=== PATIENT | female | born 1960 | race African-American/Black ===

== ENCOUNTER 2017-03-26 09:08 | Observation (INO) | payer OTHER ==
[2017-03-26 10:09] LABS: #Lymphocytes 0.9 thou/uL (1.20-3.40); #Monocytes 0.4 thou/uL (0.11-0.59); #Neutrophils 1.4 thou/uL (1.40-6.50); %Basophils 0.7 % (0.0-1.0); %Eosinophils 0.1 % (0.0-10.0); %Lymphocytes 34.2 % (21.0-51.0); %Monocytes 13.3 % (0.0-10.0); Hematocrit 19.8 % (36.0-47.0); Mean Platelet Volume 7.5 fL (7.4-10.4); Red Blood Cell (RBC) Count 2.34 mill/uL (4.20-5.40); White Blood Cell (WBC) Count 2.7 thou/uL (4.8-10.8)
--- NOTE | 2017-03-26 10:10 | RAD ---
PORTABLE CHEST: History: Shortness of breath. Comparison: 03-08-14 FINDINGS: The heart size is within normal limits. A left sided PICC line remains in place. There is increasing density in the left base suggesting some increasing effusion with atelectasis or infiltrate. Some a telectatic changes or minimal infiltrate in the right base, similar to the prior exam. IMPRESSION: Slight increased density in the left base as compared to the prior exam. This could indicate some in creasing effusion, atelectasis, and/or infiltrate. POS: [facility]
[2017-03-26 10:16] LABS: PTT 67.4 SEC (22.9-36.1); Prothrombin Time 15.3 SEC (12.0-14.7)
[2017-03-26] MEDS ORDERED: Morphine 10 MG/ML VIAL ONE (10:17)
[2017-03-26 10:26] LABS: Lactic Acid - Sepsis 0.9 mmol/L (0.5-2.2)
[2017-03-26 10:34] LABS: ALT (SGPT) Less than 7 U/L (8-55); AST (SGOT) 18 U/L (5-34); Alkaline Phosphatase 63 U/L (40-150); Anion Gap 10 mmol/L (10-20); BUN (Urea Nitrogen) 9 mg/dL (9.8-20.1); Bilirubin, Total 0.3 mg/dL (0.2-1.2); CK (CPK) 70 U/L (29-168); Calc. Creatinine Clearance 0 mL/min (70-130); Calcium 7.8 mg/dL (7.8-10.44); Carbon Dioxide 21 mmol/L (22-29); Chloride 105 mmol/L (98-107); Estimated GFR-MDRD Greater than 90; Globulin 3.3 g/dL (2.4-3.5); Lipase 89 U/L (8-78); Protein, Total 5.5 g/dL (6.0-8.3)
[2017-03-26 10:36] LABS: Troponin I 0.055 ng/mL (< 0.028)
[2017-03-26] MEDS ORDERED: Potassium Chloride 40 MEQ, Admixture Fee 1 EACH in Sodium Chloride 0.9% 250 ML 250 ML IVPB SCH (11:30)
[2017-03-26 11:57] LABS: Bilirubin Negative (Negative); Blood, Urine Large (Negative); Glucose, Urine (Dipstick) Negative (Negative); Ketone, Urine Negative (Negative); Nitrite Negative (Negative); Protein, Urine (Dipstick) 100 mg/dL (Neg-Trace); Urobilinogen 0.2 mg/dL (0.2-1.0)
[2017-03-26 11:59] LABS: Bacteria/HPF None Seen HPF (None Seen); Hyaline Casts/LPF 7-10 HYALINE CAST LPF (0-3 Hyaline); Squamous Epithelial 0-3 HPF (0-3); WBC/HPF 21-50 HPF (0-3)
[2017-03-26 12:12] LABS: Renal Epithelial None Seen HPF (0-3); Transitional Epithelial NONE SEEN HPF (0-3); Yeast-All Forms 3+ HPF (None Seen)
[2017-03-26] MEDS ORDERED: Fluconazole In NaCl,Iso-Osm 200 MG in Premix Bag 1 BAG IVPB SCH ×2 (13:30)
[2017-03-26] MEDS ORDERED: Ondansetron ODT 4 MG TAB PO PRN (18:39)
[2017-03-26] MEDS ORDERED: Bisacodyl 5 MG TAB PO PRN (18:39)
[2017-03-26] MEDS ORDERED: HYDROcodone/Acetaminophen 7.5/325 mg Tablet PO PRN ×2 (18:39)
[2017-03-26] MEDS ORDERED: hydrALAZINE 20 MG/ML VIAL SLOW IVP PRN (18:39)
[2017-03-26] MEDS ORDERED: Ondansetron HCl/PF 4 MG/2 ML Vial IVP PRN (18:39)
[2017-03-26] MEDS ORDERED: Acetaminophen 325 MG TAB PO PRN (18:39)
[2017-03-26] MEDS ORDERED: metroNIDAZOLE 500 MG TAB PO SCH (20:00)
[2017-03-26 20:46] LABS: Anion Gap 13 mmol/L (10-20); BUN (Urea Nitrogen) 8 mg/dL (9.8-20.1); Calc. Creatinine Clearance 0 mL/min (70-130); Calcium 7.4 mg/dL (7.8-10.44); Carbon Dioxide 18 mmol/L (22-29); Chloride 108 mmol/L (98-107); Estimated GFR-MDRD Greater than 90
[2017-03-26] MEDS ORDERED: Famotidine 20 MG TAB PO SCH (21:00)
[2017-03-26] MEDS ORDERED: Docusate 100 MG CAP PO SCH (21:00)
--- NOTE | 2017-03-26 22:28 | HP ---
PRIMARY CARE PHYSICIAN: Melanie Chavez. CHIEF COMPLAINT: Anemia. 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 She is being cared for by a [facility] oint and they recently did some routine labs when they noticed that her hemoglobin had dropped from the 7s down to the 6s, so they send her in for transfusion. In the ER, she was also noted to have a severe fairly low potassium at 1.9 without any significant EKG changes. The patient denies any sym ptoms besides feeling weak on and off and persistent pain from her sacral decubitus ulcer. PAST MEDICAL HISTORY: 1. Lupus. 2. Guillain-[place] syndrome in 2017. 3. Hypertension. 4. Urinary retention. 5. Previous recurrent DVT. 6. Severe deconditioning with bedridden status. 7. Chronic immunosuppression. 8. Stage IV sacral decubitus ulcer. 9. Severe protein-calorie malnutrition. PAST SURGICAL HISTORY: None. SOCIAL HISTORY: No tobacco, alcohol or illicit drug use. She lives with her boyfriend and her son. FAMILY HISTORY: Father with coronary artery disease. ALLERGIES: No known drug allergies. CURRENT MEDICATIONS: Patient does not know her current medications. Per the ER med list, the leland nt has not taken medicines sometime. Her most recent medication list from her hospitalization here 3 weeks ago were Pepcid 20 mg twice a day, Tylenol #3 one tablet every 6 hours as needed for pain, C ellCept 1 gram twice a day, MiraLax 17 grams daily, warfarin 5 mg daily, clonidine 0.2 mg 3 times a day, hydralazine 50 mg 3 times a day. Patient was also started on cefepime 1 gram every 8 hours for 1 month and Flagyl 500 mg 3 times a day for 1 month and she had a PICC line in place. REVIEW OF SYSTEMS: Constitutional: No fevers, no chills. She has persistent cachexia, lack of kimani etite and lack of energy. Eyes: No double vision or blurred vision. ENT: No congestion, drainage or sore throat. Cardiovascular: No chest pain, no palpitations. Pulmonary: No coughing, wheezin g or shortness breath. Gastrointestinal: No abdominal pain, no nausea or vomiting. No changes to her stool output her ostomy and no blood in the stool that she has noticed. Genitourinary: Urinary output through her suprapubic cath has been clear without any changes. Extremities: She has not n oticed any changes to her extremities. She does have the pain from her sacral decubitus ulcer. Ski n: Sacral decubitus ulcer. No other rashes that she has noticed. Neurologic: No changes to her p aralysis. No focal weakness of her face or changes to her voice. PHYSICAL EXAMINATION: VITAL SIGNS: Blood pressure 147/87, pulse 79, respirations 14, temperature 97.6 and O2 sat 99% on r oom air. GENERAL: This is a thin, cachectic-appearing -Citizen Of [place] female who is bedbound and does not m ove her arms or legs. HEENT: Pupils are equal, round and reactive to light. Oropharynx is clear without lesions, erythem a or exudate. There is some dry mucous membranes. NECK: Supple. No lymphadenopathy, no thyroid nodules or enlargement, no JVD. HEART: Regular rate and rhythm. No murmurs, rubs or gallops. LUNGS: Clear to auscultation bilaterally. No wheezes, crackles or rhonchi. ABDOMEN: Soft, nontender to palpation, normoactive bowel sounds. No hepatosplenomegaly or other ma sses. She does have the colostomy in place in the left side of the abdomen and a suprapubic cathete r in place as well without any surrounding erythema or drainage. EXTREMITIES: Have some contractures and flaccidity and cachectic without any specific lesions noted . SKIN: The patient has a sacral decubitus ulcer. No other skin lesions noted. NEUROLOGIC: The patient has weakness in all of her extremities, is able to speak clearly without an y facial droop or slurring of her words. PSYCHIATRIC: Patient is alert and oriented x3. She does have a depressed affect. LABORATORY AND IMAGING DATA: White blood cell count low at 2.7 with a normal differential, hemoglob in low at 6.3, hematocrit 19.8, MCV is normal at 85 and platelet count normal. Coagulation profile is subtherapeutic on her Coumadin with an INR of 1.2. Does not know whether she has been taking her medicine. Complete metabolic panel is notable for sodium of 134, potassium is very low at 1.9. Jess gamboa has already had an IV potassium in the ER, carbon dioxide of 21, BUN of 9, creatinine of 0.49 and her albumin is low at 2.2, total protein is low at 5.5. The remainder is normal. Cardiac marker se t has an indeterminate troponin of 0.055 initially. Brain natriuretic peptide is normal. Urinalysi s shows protein and large blood with 21-50 white blood cells, but no bacteria seen, just yeast. She did get a dose of Diflucan in the emergency room. Chest x-ray: I did review the chest x-ray along with the radiologist's report. There is some increased density in the left base compared to previo us exam, which could be atelectasis, but also could be infiltrate or effusion. No clinical evidence of infection at this time. EKG: Patient has normal sinus rhythm with a prolonged OR interval; thi s is consistent with previous EKGs. ASSESSMENT AND PLAN: 1. Anemia, likely due to chronic disease. No evidence of significant bleeding. We will transfuse blood in the emergency room and then recheck in the morning. 2. Severe hypokalemia. The patient has already got a couple doses of potassium in the ER. We will check potassium later this evening and if still low, can redose and then we will recheck again in t he morning. 3. Hypertension. The patient is currently not significantly hypertensive. We will give p.r.n. hyd ralazine and we will watch her blood pressures as we transfuse her. If she is back up, we can resum e her clonidine and hydralazine. 4. Malnourishment. 5. Poor medication compliance. The patient has not been taking her Coumadin regularly and I am unc ertain what are the medicines she has actually been taking as well. We will need to continue her an tibiotics while she is in the hospital. 6. Sacral decubitus ulcer. Continue antibiotics and Wound Care to evaluate. 7. Gastrointestinal prophylaxis. Put the patient on Pepcid in the hospital. 8. Deep venous thrombosis prophylaxis. We will resume patient's Coumadin and we will give low dose Lovenox. 9. CODE STATUS. I did discuss with the patient. She is a FULL CODE. Should she be incapacitated, she states that her boyfriend, Tavo Abarca, would be her medical decision maker.
[2017-03-26] MEDS: Cefepime 1 GM in Syringe 10 ML SLOW IVP SCH (23:58)
[2017-03-27 05:52] LABS: #Lymphocytes 0.7 thou/uL (1.20-3.40); #Monocytes 0.5 thou/uL (0.11-0.59); #Neutrophils 3.9 thou/uL (1.40-6.50); %Eosinophils 0.2 % (0.0-10.0); %Lymphocytes 14.2 % (21.0-51.0); %Monocytes 9.1 % (0.0-10.0); Hematocrit 31.3 % (36.0-47.0); Mean Platelet Volume 7.3 fL (7.4-10.4); Red Blood Cell (RBC) Count 3.66 mill/uL (4.20-5.40); White Blood Cell (WBC) Count 5.1 thou/uL (4.8-10.8)
[2017-03-27 05:56] LABS: Prothrombin Time 15.1 SEC (12.0-14.7)
[2017-03-27 06:13] LABS: Anion Gap 10 mmol/L (10-20); BUN (Urea Nitrogen) 9 mg/dL (9.8-20.1); Calc. Creatinine Clearance 114 mL/min (70-130); Calcium 7.5 mg/dL (7.8-10.44); Carbon Dioxide 21 mmol/L (22-29); Chloride 107 mmol/L (98-107); Estimated GFR-MDRD Greater than 90
[2017-03-27] MEDS ORDERED: Potassium Chloride 20 MEQ TAB PO SCH (07:45)
[2017-03-27] MEDS ORDERED: Potassium Chloride 40 MEQ in Sodium Chloride 0.9% 250 ML 250 ML IVPB SCH (07:45)
--- NOTE | 2017-03-27 08:02 | PDOC.PN ---
- Subjective Encounter Start Date: 03/27/17 Encounter Start Time: 09:30 Subjective: Patient without complaints. No SOB. No pain. - Objective MAR Reviewed: Yes Vital Signs & Weight: Vital Signs (12 hours) Temp Pulse Resp BP Pulse Ox 03/27/17 04:00 97.3 F L 77 16 161/85 H 100 03/27/17 00:00 96.6 F L 79 18 164/92 H 99 03/26/17 20:35 97.5 F L 69 18 163/90 H 100 Weight Weight 122 lb 4.8 oz I&O: 03/26/17 03/27/17 03/28/17 06:59 06:59 06:59 Intake Total 360 Output Total 250 Balance 110 Result Diagrams: 03/27/17 05:38 03/27/17 11:00 Phys Exam - Physical Examination Constitutional: NAD HEENT: moist MMs Respiratory: no wheezing, no rales, no rhonchi Cardiovascular: RRR Gastrointestinal: soft, positive bowel sounds Musculoskeletal: no edema contractures Psychiatric: normal affect, A&O x 3 Deviation from normal: two sacral decubitus ulcers with clean bases, no evidence infection Dx/Plan (1) Anemia of chronic disease Code(s): D63.8 - ANEMIA IN OTHER CHRONIC DISEASES CLASSIFIED ELSEWHERE Status : Acute Comment: Improved s/p transfusion, no active bleeding (2) Hypokalemia Code(s): E87.6 - HYPOKALEMIA Status: Acute Comment: Improved, repeat potassium dose this AM. Recheck around noon. (3) Sacral decubitus ulcer, stage IV Code(s): L89.154 - PRESSURE ULCER OF SACRAL REGION, STAGE 4 Status: Acute Comment: s/p I & d, now with wound vac (4) GBS (Guillain [place] syndrome) Code(s): G61.0 - GUILLAIN-[place] SYNDROME Status: Chronic Comment: quadriparesis (5) HTN (hypertension) Code(s): I10 - ESSENTIAL (PRIMARY) HYPERTENSION Status: Chronic Qualifiers: Hypertension type: essential hypertension Qualified Code(s): I10 - Essential (primary) hypertension (6) Lupus (systemic lupus erythematosus) Code(s): M32.9 - SYSTEMIC LUPUS ERYTHEMATOSUS, UNSPECIFIED Status: Chronic Qualifiers: Systemic lupus erythematosus type: unspecified (7) Protein-calorie malnutrition, moderate Code(s): E44.0 - MODERATE PROTEIN-CALORIE MALNUTRITION Status: Chronic - Plan cont current plan of care Plan on d/c home once potassium repleted * . - Discharge Day Encounter end time: 09:30
[2017-03-27 08:17] VITALS: BMI 20.9
[2017-03-27] MEDS ORDERED: metroNIDAZOLE 500 MG TAB PO SCH (09:00)
[2017-03-27] MEDS ORDERED: Enoxaparin Sodium 40 MG/0.4 ML SYRINGE SC SCH (09:00)
[2017-03-27 12:56] LABS: Anion Gap 10 mmol/L (10-20); BUN (Urea Nitrogen) 9 mg/dL (9.8-20.1); Calc. Creatinine Clearance 115 mL/min (70-130); Calcium 7.4 mg/dL (7.8-10.44); Carbon Dioxide 21 mmol/L (22-29); Chloride 108 mmol/L (98-107); Estimated GFR-MDRD Greater than 90
[2017-03-27] MEDS: Cefepime 1 GM in Syringe 10 ML SLOW IVP SCH (16:39)
[2017-03-27] MEDS ORDERED: Warfarin Sodium 5 MG TAB PO SCH (17:00)
[2017-03-27 17:05] VITALS: BP 186/97; TEMP 97.2
--- NOTE | 2017-03-27 21:03 | DIS ---
PRIMARY CARE PHYSICIAN: Liida Hansen M.D. DIAGNOSES ON ADMISSION: 1. Anemia of chronic disease. 2. Severe hypokalemia. 3. Hypertension. 4. Malnourishment. 5. Lupus. 6. Guillain-[place] syndrome. 7. Sacral decubitus ulcer stage 4. 8. Previous recurrent deep venous thrombosis. DIAGNOSES AT DISCHARGE: 1. Anemia, improved status post transfusion. 2. Hypokalemia, resolved with replacement. 3. Hypertension. 4. Malnourishment. 5. Lupus. 6. Guillain-[place] syndrome. 7. Sacral decubitus ulcer stage 4. 8. Previous recurrent deep venous thrombosis. PERTINENT LABORATORY DATA: Initial hemoglobin 6.3 up to 10.1 at discharge. Initial potassium less t mortensen 2 in the emergency room up to 3.0 before discharge. INR is subtherapeutic 1.2. Urine and blood cultures were all negative thus far. 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 She has a colostomy, suprapubic catheter, and has a decubitus ulcer and is on the month of IV antibiotics via PICC line. She had a CBC drawn as an outpatient and had a hemoglobin back at 6, so she was sent to the hospital. In the ER, she was also found to have a potassium noted to be 1.9. The patient had blood transfusi ons and potassium were repleted in the ER. Overnight, she was noted to have continued low potassium. This morning, was given another IV and oral dose of potassium and recheck while the IV potassium wa s still infusing was 3.0. The patient did not have any evidence of active bleeding. Her sacral decu bitus ulcers with all of the deep wound looked clean and not infected. She was continued on her cefe pime and metronidazole in the hospital and is being discharged back to home with previous home health . DISCHARGE MANAGEMENT: Discharge home with home health. Follow up with primary care physician early next week for recheck of CBC as well as potassium. Activity: She is bedbound, but is to do as much as she is able. Diet: Regular diet. She needs continued wound care, PICC line care as well as her suprapubic cath and ostomy care and discontinue her IV infusions at home. DISCHARGE MEDICATIONS: The patient is to resume all her medications plus I added potassium chloride 20 mEq daily, 30 tablets dispensed.
--- NOTE | 2017-05-06 13:52 | EKG ---
Test Reason : EMERGENCY EXAM Blood Pressure : / mmHG Vent. Rate : 094 BPM Atrial Rate : 094 BPM P-R Int : 320 ms QRS Dur : 098 ms QT Int : 344 ms P-R-T Axes : 003 029 212 degrees QTc Int : 430 ms Sinus rhythm with 1st degree A-V block Septal infarct , age undetermined Abnormal ECG Confirmed by MELINA LOPEZ, VICKEY ([id number]), material expeditor DALTON RIVERA ([id number]) on 05/06/2017 1:52:08 PM Referred By: Confirmed By:VICKEY SUMMERS MD
== END 2017-03-27 17:56 | disposition home health service (06) ==
LOC: ERS 09:08 → 2NO 18:43
PROVIDERS: ADMIT Emergency Medicine; ATTEND Emergency Medicine
DX: D63.8 Anemia in other chronic diseases classified elsewhere (principal); E87.6 Hypokalemia; I10 Essential (primary) hypertension; E43 Unspecified severe protein-calorie malnutrition; M32.9 Systemic lupus erythematosus, unspecified; G61.0 Guillain-Barre syndrome; L89.154 Pressure ulcer of sacral region, stage 4; Z86.718 Personal history of other venous thrombosis and embolism; Z93.3 Colostomy status; Z82.49 Family history of ischemic heart disease and other diseases of the circulatory system
CPT/HCPCS: 36415; 36430; 71010; 80048; 80053; 81003; 81015; 82553; 83605; 83690; 83880; 84484; 85025; 85610; 85730; 86850; 86900; 86901; 86922; 87040; 87086; 93005; 96361; 96365; 96366; 96367; 96375; G0378; G8996-GN-CK; G8997-GN-CK; J0692; J0696; J1450; J1650; J2270; J2405; J3480; J7050; P9016

== ENCOUNTER 2017-05-11 13:09 | Inpatient (IN) | payer OTHER ==
[2017-05-11 14:51] LABS: Hemoglobin 10.4 g/dL (12.0-16.0); Mean Corpuscular HGB CONC 30.4 g/dL (32.0-36.0); Mean Corpuscular Hemoglobin 26.7 pg (27.0-31.0); Mean Corpuscular Volume 87.9 fl (81.0-99.0); Mean Platelet Volume 6.3 fL (7.4-10.4); Platelet Count 353 thou/uL (130-400); RBC Distribution Width 13.3 % (11.5-14.5); Red Blood Cell (RBC) Count 3.89 mill/uL (4.20-5.40); White Blood Cell (WBC) Count 6.3 thou/uL (4.8-10.8)
[2017-05-11 14:59] LABS: Anion Gap 17 mmol/L (10-20); BUN (Urea Nitrogen) 11 mg/dL (9.8-20.1); Calc. Creatinine Clearance 0 mL/min (70-130); Calcium 8.1 mg/dL (7.8-10.44); Carbon Dioxide 15 mmol/L (22-29); Chloride 101 mmol/L (98-107); Estimated GFR-MDRD Greater than 90; Glucose 77 mg/dL (70-105); Lipase 13 U/L (8-78); Potassium 4.4 mmol/L (3.5-5.1); Sodium 129 mmol/L (136-145)
[2017-05-11 15:07] LABS: Band 18 % (5-11); Hypochromia SLIGHT = 6-15 cells (100X) (0-5/hpf); Lymphocytes 12 % (21-51); MDiff Complete? YES; Monocytes 3 % (0-10); Neutrophil 67 % (42-75); Ovalocytes SLIGHT = 2-5 cells (100X) (0-1/hpf); PLT Morphology Comment Appears Adequate; Polychromasia SLIGHT = 2-3 cells (100X) (0-2/hpf)
[2017-05-11 15:36] LABS: Bilirubin Small (Negative); Blood, Urine Trace (Negative); Clarity TURBID (Clear); Glucose, Urine (Dipstick) Negative (Negative); Leukocyte Large (Negative); Nitrite Negative (Negative); Protein, Urine (Dipstick) 100 mg/dL (Neg-Trace); Specific Gravity, Urine 1.019 (1.002-1.036); Urobilinogen 0.2 mg/dL (0.2-1.0); pH, Urine 7.5 (5.0-9.0)
[2017-05-11 15:39] LABS: Bacteria/HPF 4+ HPF (None Seen); Squamous Epithelial 0-3 HPF (0-3)
[2017-05-11 15:41] LABS: Pathc Cast-AUWi Flag 5.36 (0-2.49); Yeast-AUWi Flag 809.5 (0-25.0)
--- NOTE | 2017-05-11 15:43 | RAD ---
CHEST ONE VIEW AND ABDOMEN TWO VIEWS: HISTORY; Constipation. The patient has a colostomy and a suprapubic catheter and a wound VAC to the right but tocks. FINDINGS/IMPRESSION: The heart size is normal. There is a left-sided pleural effusion with adjacent consolidation/atelect atic change. The right lung is clear. No free air or differential air level is seen. The bowel gas pattern is unremarkable. A left lower quadrant ostomy is presently noted. There is a drainage tubing in the region of the right hip/buttoc k. POS: [facility]
[2017-05-11 15:51] LABS: Crystals/HPF 1+ TRIPLE PHOS HPF (Negative); Hyaline Casts/LPF 0-3 HYALINE CAST LPF (0-3 Hyaline); Other Casts/LPF None Seen LPF (0-3 Hyaline); Yeast-All Forms 1+ HPF (None Seen)
[2017-05-11] MEDS ORDERED: cefTRIAXone\\ROCEPHIN 1 GM, Syringe 0.4 ML in Sterile Water 9.6 ML SLOW IVP SCH (17:45)
[2017-05-11] MEDS ORDERED: Guaifenesin DM 100-10/5 ML UDCUP PO PRN (19:16)
[2017-05-11] MEDS ORDERED: Acetaminophen 325 MG TAB PO PRN (19:16)
[2017-05-11 19:47] LABS: INR-International Normal Ratio 1.1; Prothrombin Time 13.8 SEC (12.0-14.7)
[2017-05-11] MEDS: Sodium Chloride 0.9% 1,000 ML IV SCH (20:00)
[2017-05-11 20:09] LABS: ALT (SGPT) Less than 7 U/L (8-55); AST (SGOT) 17 U/L (5-34); Albumin 2.3 g/dL (3.5-5.0); Alkaline Phosphatase 71 U/L (40-150); Bilirubin, Direct 0.2 mg/dL (0.1-0.3); Bilirubin, Total 0.3 mg/dL (0.2-1.2); Protein, Total 5.8 g/dL (6.0-8.3)
--- NOTE | 2017-05-11 20:30 | CT ---
CT OF THE ABDOMEN AND PELVIS WITHOUT IV CONTRAST 05/11/17 INDICATION: History of sepsis, sacral decubitus ulceration, colostomy and generalized abdominal pain. COMPARISON: Prior exam dated 11/08/16. FINDINGS: There is moderate left and small right pleural effusion. There is small pericardial effusion. Unopacified liver, spleen, pancreas, adrenal glands and kidneys are unremarkable appearing. No hydron ephrosis is evident. There are mild vascular calcifications noted involving the abdominal aorta. Left lower quadrant end colostomy does not appear appreciably changed from the comparison. There is n o evidence of overt obstruction. No drainable fluid collection is noted. Fibroid uterus is similar. There is a suprapubic catheter in place. The bladder is decompressed. Ther e is interval development of severe anasarca. There is a decubitus ulceration overlying the lower sacrum. There is prominent fragmentation involvin g the coccyx and lower sacrum consistent with changes of osteomyelitis. There is diffuse osteopenia. IMPRESSION: 1. Sacral decubitus ulceration involving the lower sacrum and coccyx with prominent fragmentatio n of the lower sacrum and coccyx consistent with osteomyelitis. 2. Interval development of prominent anasarca with moderate left small right pleural effusions. 3. Small pericardial effusion. 4. Left lower quadrant end colostomy. There is no evidence to suggest obstruction. 5. Suprapubic catheter. 6. Fibroid uterus. POS: [facility]
--- NOTE | 2017-05-11 20:36 | HP ---
REASON FOR ADMISSION: Sepsis, invasive UTI, failure to thrive. HISTORY OF PRESENT ILLNESS: The patient was brought to emergency room for colostomy replacement, but apparently her vital signs were abnormal with systolic blood pressures dropping to 90s in the ER. Her urinalysis revealed UTI with a CBC revealing bandemia. Patient states she has not had much urine output from her suprapubic catheter from the last two days. Also, there is some mention about her not being fed by her boyfriend/ at home. 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 She has chronic colostomy and a suprapubic catheter. She also has sacral decubitus which is in a wound VAC at present. The patient states she does not feel good, but is unable to describe much further than that. She states she has some pain in her sacral area where the ulcer is and the wound VAC is. Please note patient is a very poor historian. PAST MEDICAL AND SURGICAL HISTORY: History of severe protein-calorie malnutrition due to inadequate oral intake, chronic lupus, history of GB syndrome with quadriparesis/plegia, hypertension, urinary retention with suprapubic catheter, colostomy, severe deconditioning and bedridden status, stage 4 sacral decubitus in wound VAC, has had renal biopsy done for establishing history of lupus, prior debridement of sacral decubitus. CURRENT MEDICATIONS: Please note patient does not recall any of her medications. She is on Coumadin 5 mg p.o. daily with unreliable intake, likely noncompliant; clonidine 0.2 mg p.o. 3 times daily, CellCept 1000 mg p.o. twice daily, hydralazine 50 mg 3 times daily, Tylenol #3 p.r.n. ALLERGIES: No known drug allergies. PERSONAL HISTORY: Does not abuse alcohol or drugs. No history of smoking. She lives with her /boyfriend and son. FAMILY HISTORY: There is history of heart disease in the family. All her family is in [place] per patient. REVIEW OF SYSTEMS: The following complete review of systems was negative, unless otherwise mentioned in the HPI or below: Constitutional: Weight loss or gain, ability to conduct usual activities. Skin: Rash, itching. Eyes: Double vision, pain. ENT/Mouth: Nose bleeding, neck stiffness, pain, tenderness. Cardiovascular: Palpitations, dyspnea on exertion, orthopnea. Respiratory: Shortness of breath, wheezing, cough, hemoptysis, fever or night sweats. Gastrointestinal: Poor appetite, abdominal pain, heartburn, nausea, vomiting, constipation, or diarrhea. Genitourinary: Urgency, frequency, dysuria, nocturia. Musculoskeletal: Pain, swelling. Neurologic/Psychiatric: Anxiety, depression. Allergy/Immunologic: Skin rash, bleeding tendency. PHYSICAL EXAMINATION: GENERAL: The patient is a 56-year-old female who is currently not in any distress. VITAL SIGNS: Blood pressure on arrival was 140/102 and currently 90/60 and has received a liter of fluid in the ER and has received half a liter of fluid in the ER, pulse is 116 per minute, respiratory rate 16 per minute, temperature 98.6 degrees Fahrenheit, saturating 99% on room air. NECK: Supple, no elevated JVD. HEENT: Eyes, extraocular muscles intact. Pupils reacting to light. Oral cavity mucous membranes are dry. No exudates or congestion. CARDIOVASCULAR: S1, S2 heard. Regular rhythm. RESPIRATORY: Air entry 1+ bilaterally, shallow breath sounds bilaterally. ABDOMEN: Soft. Has a suprapubic catheter and colostomy is filled with solid stools. The patient appears to have dependent edema on the abdominal wall. EXTREMITIES: Lower extremities: There is 2+ peripheral edema. No ulcerations or gangrene. VASCULAR: Peripheral pulses are 1+ in the upper extremities, lower extremities barely palpable. CENTRAL NERVOUS SYSTEM: The patient is quadriparetic and does not move any of her extremities. She appears to have flexion contractures of upper extremities and is in an extended position of lower extremities. Movement of any of her extremities passively by me causes extreme pain on her. PSYCHIATRIC: There are no hallucinations or delusions at present. LABORATORY AND X-RAY FINDINGS: White count of 6, H&H 10 and 34, platelet count 353, MCV is 87 with 67% neutrophils, platelet count is 353. There is 18% bands. Sodium 129, serum bicarbonate 15, BUN 11, creatinine 0.5. UA shows large leukocyte esterase, greater than 50 WBCs with 4+ bacteria. There is also 1+ yeast. Acute abdominal series done shows no free air or signs of bowel obstruction. There is left-sided pleural effusion seen. CLINICAL IMPRESSION AND PLAN: The patient will be admitted to medical floor for sepsis likely invasive urinary tract infection, dehydration, hyponatremia, metabolic acidosis and bandemia with nearly 18% bands on CBC. The patient is quadriparetic from GB syndrome and has been hospitalized here multiple times. She has severe protein malnutrition and has inadequate oral intake. Each time she gets hospitalized, the patient has been advised to go to a snf, but finally prefers to go back to her home. We will obtain patricio cultures including blood and urine. She will be on meropenem and vancomycin. She also has chronic sacral decubitus, almost stage 4 and is in a wound VAC and will involve Wound Care. We will continue her Coumadin 5 mg p.o. daily. We will obtain a baseline PT/INR at present. Ultrasound venous Doppler of lower extremities to rule out DVT. I have discussed code status with her and she wants to be a FULL CODE. We will obtain palliative care consultation for help with code status and likely hospice care in view of quadriparesis, poor nutrition and multiple medical issues at present. We will also obtain a CT of the abdomen and pelvis to assess her bowels, sacral decubitus, recurrent UTI to rule out any obstruction. The patient also has nonspecific abdominal discomfort as well. We will consult Dr. Aparicio who knows the patient from prior hospitalizations here. We will add a hepatic panel to the current metabolic panel that is done to assess for liver enzymes and her current albumin levels as well. MARTHAD
[2017-05-11 20:42] VITALS: BMI 22.6
[2017-05-11] MEDS ORDERED: VANCOMYCIN/ RENALLY ADJUST ANTIBIOTICS IVPB PRN (20:51)
[2017-05-11] MEDS: Vancomycin HCl 1 GM in Premix Bag 1 BAG IVPB SCH (20:53)
[2017-05-11] MEDS: Docusate 100 MG CAP PO SCH (21:00)
[2017-05-11] MEDS: Famotidine 20 MG TAB PO SCH (21:00)
[2017-05-11] MEDS ORDERED: Meropenem 1 GM in Sodium Chloride 0.9% 100 ML IVPB SCH (22:00)
[2017-05-11] MEDS: Meropenem 1 GM in Sterile Water 20 ML SLOW IVP SCH (22:21)
[2017-05-12 05:34] LABS: Calcium 7.7 mg/dL (7.8-10.44); Chloride 105 mmol/L (98-107); Glucose 73 mg/dL (70-105); Potassium 3.8 mmol/L (3.5-5.1); Sodium 132 mmol/L (136-145)
[2017-05-12 05:35] LABS: Carbon Dioxide 14 mmol/L (22-29)
[2017-05-12 05:37] LABS: BUN (Urea Nitrogen) 11 mg/dL (9.8-20.1); Calc. Creatinine Clearance 124 mL/min (70-130); Estimated GFR-MDRD Greater than 90
[2017-05-12] MEDS: Meropenem 1 GM in Sterile Water 20 ML SLOW IVP SCH ×3 (05:41→21:54)
[2017-05-12 05:45] LABS: Anion Gap 16 mmol/L (10-20)
[2017-05-12] MEDS: Sodium Chloride 0.9% 1,000 ML IV SCH (05:48)
--- NOTE | 2017-05-12 08:16 | ULT ---
BILATERAL LOWER EXTREMITY VENOUS DOPPLER ULTRASOUND: HISTORY: DVT. TECHNIQUE: Sheth scale ultrasound with color flow and spectral Doppler imaging of the deep venous systems of the lower extremities was performed bilaterally. FINDINGS: There is absence of compression due to intraluminal thrombus seen in the deep veins of the right lowe r extremity, worse in the common femoral vein. Most of this thrombus appears nonocclusive, except in the right deep femoral vein which appears occlusive. There is absence of compression due to nonocclusive thrombus in the left femoral vein and posterior t ibial vein. The popliteal is not well seen due to patient's contractures. IMPRESSION: Deep vein thrombosis in the lower extremities on both sides. Discussed over the telephone with Dr. Leticia Paige at 8:06 a.m. CODE COBY POS: [facility]
[2017-05-12] MEDS: Vancomycin HCl 1 GM in Premix Bag 1 BAG IVPB SCH ×2 (08:46→21:54)
--- NOTE | 2017-05-12 09:29 | PDOC.PN ---
- Subjective Encounter Start Date: 05/12/17 Encounter Start Time: 09:28 Subjective: seen and examined - Objective Resuscitation Status: Resuscitation Status FULL:Full Resuscitation Vital Signs & Weight: Vital Signs (12 hours) Temp Pulse Resp BP Pulse Ox 05/12/17 08:31 97.9 F 91 16 121/75 100 05/12/17 04:15 98.7 F 83 16 106/72 96 Weight Weight 132 lb I&O: 05/11/17 05/12/17 05/13/17 06:59 06:59 06:59 Intake Total 1200 Output Total 75 Balance 1125 Result Diagrams: 05/11/17 14:34 05/12/17 04:43 Phys Exam - Physical Examination Constitutional: NAD HEENT: PERRLA, moist MMs, sclera anicteric Neck: no nodes, no JVD, supple, full ROM Respiratory: no wheezing, no rales, no rhonchi, clear to auscultation bilateral Cardiovascular: no significant murmur, no rub Gastrointestinal: soft, non-tender, no distention Musculoskeletal: pulses present, edema present quadriplegic Dx/Plan (1) Sepsis Code(s): A41.9 - SEPSIS, UNSPECIFIED ORGANISM Status: Acute (2) UTI (urinary tract infection) Status: Acute (3) Anemia of chronic disease Code(s): D63.8 - ANEMIA IN OTHER CHRONIC DISEASES CLASSIFIED ELSEWHERE Status : Acute Comment: Improved s/p transfusion, no active bleeding (4) Sacral decubitus ulcer, stage IV Code(s): L89.154 - PRESSURE ULCER OF SACRAL REGION, STAGE 4 Status: Acute Comment: s/p I & d, now with wound vac (5) FTT (failure to thrive) in adult Status: Chronic (6) Metabolic acidosis Code(s): E87.2 - ACIDOSIS Status: Acute - Plan plan discussed w/ family, continue antibiotics, PT/OT, community mental health social worker, respiratory therapy pain management -: D/c IVF -: May likely need SNF placement * .
[2017-05-12] MEDS: Docusate 100 MG CAP PO SCH ×2 (10:12→21:54)
[2017-05-12] MEDS: Famotidine 20 MG TAB PO SCH ×2 (10:12→21:54)
[2017-05-12] MEDS: Enoxaparin Sodium 60 MG/0.6 ML SYRINGE SC SCH ×2 (10:12→21:54)
[2017-05-12] MEDS ORDERED: Morphine 4 MG/ML VIAL SLOW IVP PRN (10:14)
[2017-05-12] MEDS: Morphine 4 MG/ML VIAL SLOW IVP PRN (10:18)
[2017-05-12 10:29] LABS: #Lymphocytes 1.4 thou/uL (1.20-3.40); #Monocytes 0.7 thou/uL (0.11-0.59); #Neutrophils 4.2 thou/uL (1.40-6.50); %Basophils 0.1 % (0.0-1.0); %Eosinophils 0.1 % (0.0-10.0); %Lymphocytes 21.8 % (21.0-51.0); %Monocytes 11.6 % (0.0-10.0); %Neutrophils 66.4 % (42.0-75.0); Mean Corpuscular HGB CONC 31.7 g/dL (32.0-36.0); Mean Corpuscular Hemoglobin 27.9 pg (27.0-31.0); Mean Corpuscular Volume 88.1 fl (81.0-99.0); Mean Platelet Volume 5.6 fL (7.4-10.4); Platelet Count 359 thou/uL (130-400); RBC Distribution Width 13.1 % (11.5-14.5); Red Blood Cell (RBC) Count 3.23 mill/uL (4.20-5.40); White Blood Cell (WBC) Count 6.3 thou/uL (4.8-10.8)
[2017-05-12 11:01] LABS: INR-International Normal Ratio 1.2; Prothrombin Time 15.4 SEC (12.0-14.7)
[2017-05-12] MEDS: HYDROcodone/Acetaminophen 5/325 mg Tablet PO PRN (12:07)
--- NOTE | 2017-05-12 15:54 | CON ---
DATE OF CONSULTATION: 05/12/2017 REASON FOR CONSULTATION: Bandemia, abnormal urinalysis, sacral decubitus ulcer, hypotension. 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 The patient had a colostomy placed and has had a suprapubic catheter placed as well. The patient boss d been admitted in February with worsening of the decubitus ulcer, felt to be secondary to poor offloa ding in the home setting. The patient had surgical debridement in February by Dr. Anderson in the opera ting room. The sacrum and ischium were debrided sharply with necrotic tissue. Sacrum was resected w ith rongeurs back to healthy bone edges. Ischium was resected as well to facilitate granulation. e cultures at that time revealed methicillin-resistant Staphylococcus aureus and 3 different species of Bacteroides. The patient was released on IV antimicrobial therapy according to my note, cefepime and Flagyl. The patient was brought back to the hospital on 05/11/2017 because of abdominal pain as well as perception that there was no stool output and after evaluation, there was evidence of abnorma l urinalysis which is expected due to her suprapubic catheter and a CBC showing bandemia. Also patie nt said that she was not having a lot of urinary output and her systolic blood pressure was in the 90 s; therefore she was admitted. Reportedly, she was not getting proper attention in the home setting, frequently she would try to call relatives and according to her in her own words half the time they would not come despite her calling them. She felt that she was not receiving enough food or liquid s upplementation. REVIEW OF SYSTEMS: Currently, she is awake. She denies headaches, no sore throat, odynophagia, dysp hagia, no vomiting, no dyspnea or chest pain. No back pain. The abdominal pain that she had felt boss s resolved and no changes in neurological status. PAST MEDICAL HISTORY: Systemic lupus erythematosus, nephritis, neuropathy with quadriparesis, neurog enic bladder with suprapubic catheter, stage 4 presacral ulcer with status post extensive debridement with partial resection of sacrum and coccyx and antimicrobial therapy, it is not clear what kind of antimicrobial therapy she was discharged with. She may have completed IV therapy in the home setting . DVT on Coumadin in the past. FAMILY HISTORY: Coronary artery disease. SOCIAL HISTORY: Disabled, never smoker. ALLERGIES: None. CURRENT MEDICATIONS: Blanding, Colace, Lovenox, Pepcid, Robitussin, meropenem, vancomycin, warfarin. PHYSICAL EXAMINATION: VITAL SIGNS: T-max 98.7, blood pressure 120/70, pulse 94, respirations 16, O2 sat 100%. GENERAL: Appears in no distress. SKIN: Skin dryness which is a noted feature from prior exams. The wound in the back actually appear s granulating well. At the center of the presacral region, there seems to be a bit deeper, it not de scribed if this has been inspected with a Q-tip to see what the depth for penetration would be. Ines ent has a peripheral IV access left upper extremity and suprapubic catheter with normal appearing exi t site. Colostomy in the left side of the abdomen with liquid small amount in the bag and alopecia n oted. HEENT: Ocular movements are conjugate. Sclerae white. Pupils are equal. Oral cavity moist. No te eth remaining in oral cavity. NECK: Supple. LUNGS: With symmetric clear breath sounds. HEART: S1, S2, regular rate. No S3 or S4. ABDOMEN: Soft, not distended, no tenderness. No bladder distention. EXTREMITIES: She also has an area of abrasion or superficial ulceration of the right ischial region, quadriparesis as noted previously, actually quadriplegia extends with posturing of the feet. NEUROLOGIC: She is awake, oriented, follows commands. LABORATORY DATA: INR 1.2. White cell count 6.3, hemoglobin 10.4, platelets 353, 67% neutrophils, 18 % bands. Sodium 129, creatinine 0.57, and albumin 2.3. Transaminases normal. Alkaline phosphatase 71. Urinalysis with greater than 50 wbc's. Venogram was done which showed the previously noted DVT which is unchanged. Abdomen and pelvis CT was completed this admission, it showed sacral decubitus u lceration in the lower sacrum coccygeal area, fragmentation lower sacrum and coccyx anasarca, small r ight pleural effusion, small pericardial effusion, colostomy with no obstruction, suprapubic catheter . ASSESSMENT: 1. Quadriparesis associated with systemic lupus erythematosus and severe neuropathy. The neurologic al findings are more consistent with some form of transverse myelitis; however, previous MRIs did not demonstrate any evidence of such. 2. Neurological complications related to the above including neurogenic bladder with suprapubic cath eter. 3. Prior deep venous thrombosis on Coumadin, although her INR was not therapeutic. 4. 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 Of note, methicillin-resistant Stap hylococcus aureus was retrieved from the cultures obtained during the surgical procedure in addition to the anaerobes identified. I do not believe that her regimen that she was discharged with was cove ring the methicillin-resistant Staphylococcus aureus. 5. Abnormal urinalysis with Pseudomonas aeruginosa. DISCUSSION: Differential diagnosis includes inflammatory consequences of the sacral osteomyelitis wi th the methicillin-resistant Staphylococcus aureus component that was not covered by the regimen that reportedly patient was discharged on. In addition to that, she has urinary abnormalities, although those would be present one way or another in view of the suprapubic catheter. We will have to treat that finding since patient was volume depleted and not receiving enough fluids and not flushing her b ladder properly and therefore increasing the risk of an invasive urinary tract process. She does not have any evidence of obstruction; however, of the urinary tract. Plan to continue treatment for at least 4 weeks. PICC line placement. Treat with Merrem and vancomycin or an alternate combination de pending on susceptibilities of the Pseudomonas aeruginosa. Again, I believe that she would be better off placed in a fpc than in the home setting where she does not seem to be getting the prop er attention.
[2017-05-12] MEDS: Warfarin Sodium 5 MG TAB PO SCH (16:54)
[2017-05-13] MEDS: Morphine 4 MG/ML VIAL SLOW IVP PRN ×3 (01:23→13:58)
[2017-05-13 05:08] LABS: INR-International Normal Ratio 1.2; PTT 40.9 SEC (22.9-36.1); Prothrombin Time 15.5 SEC (12.0-14.7)
[2017-05-13] MEDS: Meropenem 1 GM in Sterile Water 20 ML SLOW IVP SCH ×3 (06:23→22:46)
[2017-05-13 08:51] LABS: Vancomycin, Trough 34.6 ug/mL
[2017-05-13] MEDS: Famotidine 20 MG TAB PO SCH ×2 (09:43→21:06)
[2017-05-13] MEDS: Enoxaparin Sodium 60 MG/0.6 ML SYRINGE SC SCH ×2 (09:44→21:06)
[2017-05-13] MEDS: Docusate 100 MG CAP PO SCH ×2 (09:44→21:06)
[2017-05-13] MEDS: HYDROcodone/Acetaminophen 5/325 mg Tablet PO PRN (10:29)
[2017-05-13] MEDS: Ondansetron HCl/PF 4 MG/2 ML Vial IVP PRN (10:29)
--- NOTE | 2017-05-13 10:29 | PDOC.PN ---
- Subjective Encounter Start Date: 05/13/17 Encounter Start Time: 12:00 Subjective: Patient reports significant pain everywhere, no SOB. - Objective Resuscitation Status: Resuscitation Status FULL:Full Resuscitation MAR Reviewed: Yes Vital Signs & Weight: Vital Signs (12 hours) Temp Pulse Resp BP Pulse Ox 05/13/17 07:25 98.2 F 81 16 136/80 100 Weight Weight 132 lb I&O: 05/12/17 05/13/17 05/14/17 06:59 06:59 06:59 Intake Total 1200 1740 Output Total 75 325 Balance 1125 1415 Result Diagrams: 05/12/17 10:16 05/12/17 04:43 Phys Exam - Physical Examination Constitutional: NAD HEENT: moist MMs Respiratory: no wheezing, no rales, no rhonchi Cardiovascular: RRR Gastrointestinal: soft, no distention, positive bowel sounds mild TTP diffusely Musculoskeletal: no edema paralyzed Psychiatric: normal affect, A&O x 3 Dx/Plan (1) Sacral decubitus ulcer, stage IV Code(s): L89.154 - PRESSURE ULCER OF SACRAL REGION, STAGE 4 Status: Acute Comment: s/p I & d, now with wound vac, evidence progressive osteomyelitis on CT (2) UTI (urinary tract infection) Status: Acute Qualifiers: Urinary tract infection type: catheter-associated UTI Indwelling urinary catheter type: cystostomy catheter (3) Sepsis Code(s): A41.9 - SEPSIS, UNSPECIFIED ORGANISM Status: Acute Qualifiers: Sepsis type: Pseudomonas Qualified Code(s): A41.52 - Sepsis due to Pseudomonas (4) Metabolic acidosis Code(s): E87.2 - ACIDOSIS Status: Acute (5) Anticoagulant long-term use Code(s): Z79.01 - CARE HOME (CURRENT) USE OF ANTICOAGULANTS Status: Chronic Comment: INR subtherapeutic, suspect non-compliance with home regimen (6) Anemia of chronic disease Code(s): D63.8 - ANEMIA IN OTHER CHRONIC DISEASES CLASSIFIED ELSEWHERE Status : Acute Comment: Improved s/p transfusion, no active bleeding (7) FTT (failure to thrive) in adult Status: Chronic (8) H/O deep venous thrombosis Code(s): Z86.718 - PERSONAL HISTORY OF OTHER VENOUS THROMBOSIS AND EMBOLISM Status: Chronic Comment: BLE DVT last imaged 05/12/17 - Plan cont current plan of care, continue antibiotics, social insurance administrator, DVT proph w/ lovenox Appreciate Dr. Aparicio' imput, will get PICC and senior catering sales manager abx to cover MRSA -: and Pseudomonas. PICC not possibly until Sat as no staff till then. -: Wound care, wound vac -: Really needs SNF placement though has refused in past * . - Discharge Day Encounter end time: 12:30
[2017-05-13 10:56] LABS: Vancomycin, Trough 34.6 ug/mL
[2017-05-13] MEDS: Vancomycin HCl 1 GM in Premix Bag 1 BAG IVPB SCH (12:11)
[2017-05-13] MEDS ORDERED: Sodium Chloride 0.9% 1,000 ML IV SCH (14:45)
[2017-05-13] MEDS: Sodium Chloride 0.9% 1,000 ML IV SCH (15:14)
[2017-05-13] MEDS: Warfarin Sodium 5 MG TAB PO SCH (16:59)
[2017-05-13] MEDS ORDERED: Vancomycin HCl 1 GM in Premix Bag 1 BAG IVPB SCH (21:00)
[2017-05-13] MEDS ORDERED: Vancomycin HCl 500 MG in Sodium Chloride 0.9% 100 ML IVPB SCH (23:00)
[2017-05-14] MEDS: Sodium Chloride 0.9% 1,000 ML IV SCH ×3 (01:22→19:44)
[2017-05-14 05:05] LABS: #Lymphocytes 0.9 thou/uL (1.20-3.40); #Monocytes 0.4 thou/uL (0.11-0.59); #Neutrophils 1.9 thou/uL (1.40-6.50); %Eosinophils 0.4 % (0.0-10.0); %Lymphocytes 27.8 % (21.0-51.0); %Monocytes 13.4 % (0.0-10.0); %Neutrophils 58.4 % (42.0-75.0); Mean Corpuscular HGB CONC 31.1 g/dL (32.0-36.0); Mean Corpuscular Hemoglobin 27.5 pg (27.0-31.0); Mean Corpuscular Volume 88.3 fl (81.0-99.0); Platelet Count 315 thou/uL (130-400); RBC Distribution Width 13.3 % (11.5-14.5); White Blood Cell (WBC) Count 3.3 thou/uL (4.8-10.8)
[2017-05-14 05:08] LABS: Platelet Count 304 thou/uL (130-400)
[2017-05-14] MEDS: Meropenem 1 GM in Sterile Water 20 ML SLOW IVP SCH ×2 (05:08→14:20)
[2017-05-14 05:11] LABS: INR-International Normal Ratio 1.3; Prothrombin Time 16.1 SEC (12.0-14.7)
[2017-05-14 05:12] LABS: PTT 43.8 SEC (22.9-36.1)
[2017-05-14 05:17] LABS: Anion Gap 10 mmol/L (10-20); BUN (Urea Nitrogen) 10 mg/dL (9.8-20.1); Calc. Creatinine Clearance 127 mL/min (70-130); Calcium 7.6 mg/dL (7.8-10.44); Carbon Dioxide 18 mmol/L (22-29); Chloride 106 mmol/L (98-107); Estimated GFR-MDRD Greater than 90; Glucose 81 mg/dL (70-105); Potassium 3.1 mmol/L (3.5-5.1); Sodium 131 mmol/L (136-145)
[2017-05-14] MEDS: Docusate 100 MG CAP PO SCH ×2 (07:36→20:21)
[2017-05-14] MEDS: Famotidine 20 MG TAB PO SCH ×2 (07:36→20:21)
[2017-05-14] MEDS: Enoxaparin Sodium 60 MG/0.6 ML SYRINGE SC SCH ×2 (09:56→20:21)
--- NOTE | 2017-05-14 11:30 | PDOC.PN ---
- Subjective Encounter Start Date: 05/14/17 Encounter Start Time: 11:15 Subjective: Unable to place PICC due to patient can't extend arm. No changes -: overnight. Pain a lot better today. Patient agreeable to SNF this -: time. - Objective Resuscitation Status: Resuscitation Status FULL:Full Resuscitation MAR Reviewed: Yes Vital Signs & Weight: Vital Signs (12 hours) Temp Pulse Resp BP 05/14/17 07:26 98 F 87 16 05/14/17 07:18 97.4 F L 85 16 154/86 H Weight Admit Weight 132 lb Weight 132 lb I&O: 05/13/17 05/14/17 05/15/17 06:59 06:59 06:59 Intake Total 1740 240 Output Total 325 125 Balance 1415 115 Result Diagrams: 05/14/17 04:27 05/14/17 04:27 Additional Labs: Accuchecks 05/13/17 16:57 POC Glucose 88 Phys Exam - Physical Examination Constitutional: NAD HEENT: moist MMs Respiratory: no wheezing, no rales, no rhonchi, clear to auscultation bilateral Cardiovascular: RRR, no significant murmur Gastrointestinal: soft, non-tender, positive bowel sounds upper extremities contractured with bent elbows Psychiatric: normal affect, A&O x 3 Dx/Plan (1) Sacral decubitus ulcer, stage IV Code(s): L89.154 - PRESSURE ULCER OF SACRAL REGION, STAGE 4 Status: Acute Comment: s/p I & d, now with wound vac, evidence progressive osteomyelitis on CT (2) UTI (urinary tract infection) Status: Acute Qualifiers: Urinary tract infection type: catheter-associated UTI Indwelling urinary catheter type: cystostomy catheter (3) Sepsis Code(s): A41.9 - SEPSIS, UNSPECIFIED ORGANISM Status: Acute Qualifiers: Sepsis type: Pseudomonas Qualified Code(s): A41.52 - Sepsis due to Pseudomonas (4) Metabolic acidosis Code(s): E87.2 - ACIDOSIS Status: Acute (5) Anticoagulant long-term use Code(s): Z79.01 - [facility] (CURRENT) USE OF ANTICOAGULANTS Status: Chronic Comment: INR subtherapeutic, suspect non-compliance with home regimen (6) Anemia of chronic disease Code(s): D63.8 - ANEMIA IN OTHER CHRONIC DISEASES CLASSIFIED ELSEWHERE Status : Acute Comment: Improved s/p transfusion, no active bleeding (7) FTT (failure to thrive) in adult Status: Chronic (8) H/O deep venous thrombosis Code(s): Z86.718 - PERSONAL HISTORY OF OTHER VENOUS THROMBOSIS AND EMBOLISM Status: Chronic Comment: BLE DVT last imaged 05/12/17 - Plan cont current plan of care, continue antibiotics, DVT proph w/lovenox Dr. Mcneill consulted about possible Pham or other exterminator helper IV -: access since can't get PICC. -: Patient agreeable to SNF so will have case management arrange -: once cleared for discharge by ID and exterminator helper IV access placed. * . - Discharge Day Encounter end time: 11:45
[2017-05-14] MEDS ORDERED: Potassium Chloride 20 MEQ TAB PO SCH (12:00)
[2017-05-14] MEDS: Warfarin Sodium 5 MG TAB PO SCH (16:19)
--- NOTE | 2017-05-14 17:39 | CON ---
DATE OF CONSULTATION: 05/14/2017 REQUESTING PHYSICIAN: Dr. Will Amor. HISTORY OF PRESENT ILLNESS: This is a 56-year-old -Greek woman with a history of functiona l quadriplegia. The patient was admitted on 05/11/2017 for workup and treatment of sepsis. She has a history of chronic MRSA. She has been on broad-spectrum antibiotic therapy. She was recently celestina earnestine for osteomyelitis arising from sacral decubitus ulcer. She requires long-term IV antibiotic ther apy. Attempt to secure peripherally inserted central venous access has been unsuccessful due to the patient's significant contractures of the upper extremities. I was asked to evaluate the patient for surgical placement of long-term IV access. PAST MEDICAL HISTORY: Significant for severe protein-calorie malnutrition, stage 4 sacral decubitus ulcer, chronic lupus erythematosus, essential hypertension, history of Guillain-Caledonia syndrome with f unctional quadriplegia and bilateral lower extremity deep vein thrombosis. SURGICAL HISTORY: Pertinent for excisional debridement of stage 4 sacral decubitus ulcer, placement of suprapubic catheter as well as diverting colostomy. FAMILY HISTORY: Noncontributory for this patient's age. ALLERGIES: Patient has no known drug allergies. REVIEW OF SYSTEMS: As stated in past medical history and chief complaint. PHYSICAL EXAMINATION: GENERAL: This reveals a 56-year-old woman, a poor historian, who is quite cachectic-appearing and is in no acute distress at the time of my evaluation. VITAL SIGNS: Includes blood pressure 154/86, pulse 85, respiratory rate 16, maximum temperature in t he last 24 hours is 98.2 degrees Fahrenheit. Oxygen saturation 100% on room air. HEENT EXAMINATION: Reveals normocephalic and atraumatic. HEART: Reveals regular rate and rhythm. No murmurs or gallops auscultated. LUNGS: Clear to auscultation bilaterally. Breathing is regular and unlabored. ABDOMEN: Soft, nontender, and nondistended. The colostomy is in place with stool and gas. Suprapub ic catheter is also noted in place. NEUROLOGIC: Patient is contractured and quadriparetic, but otherwise has no focal cognitive deficits . LABORATORY STUDIES: Today includes a CBC with 3300 white blood cells, hemoglobin 8.0, hematocrit is 25.6, platelet count is 315,000. Metabolic profile: Sodium 131, potassium is 3.1, chloride is 106, bicarbonate 18, BUN 10, creatinine 0.48, glucose is 81. IMPRESSION: 1. 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 2. Stage 4 sacral decubitus ulcer. Wound VAC in place. 3. Likely methicillin-resistant Staphylococcus aureus sepsis. PLAN: 1. We will proceed with placement of an IV access. 2. Given this patient's upper extremity contractures and the likelihood of repeat admissions, I disc ussed with Dr. Aparicio who agrees that placement of Port-A-Cath will best serve this patient's needs.
--- NOTE | 2017-05-14 19:09 | PRG ---
DATE OF SERVICE: 05/14/2017 SUBJECTIVE: Feels weak. No respiratory symptoms. No pain. No fever. OBJECTIVE: VITAL SIGNS: BP 150/86, pulse 87, respirations 16. NEUROLOGIC EXAM: Unchanged. LUNGS: Symmetric air entry. HEART: S1, S2, regular rate. ABDOMEN: Soft, nontender. Suprapubic catheter in place. LABORATORY DATA: Sodium 131. Creatinine 0.48. White cell count 3.3, hemoglobin 8, platelets 315, n ormal differential. MICROBIOLOGY: Pseudomonas aeruginosa with a very broad susceptibility profile. ASSESSMENT AND DISCUSSION: 1. Quadriparesis/plegia associated with systemic lupus erythematosus. 2. Severe neuropathy. 3. Prior deep vein thrombosis, on Coumadin. 4. Sacral osteomyelitis debridement, partially treated. 5. Abnormal urinalysis with Pseudomonas aeruginosa. The patient also had documentation of the deep vein thrombosis that had been diagnosed previously. S he was not therapeutic on her INR. At this point, we have to finish treating the sacral decubitus wi th vancomycin. We will switch her to Cipro from meropenem for the urinary tract isolate, although th is could represent purely colonization of the area rather than any invasive infectious process. Hard to rule out . Another possibility would be pulmonary embolism, since she does have bilateral D VTs and does not have an IVC filter. I wonder if it would be better choice to just put her on IVC, s o we can discontinue the warfarin.
[2017-05-14 20:40] LABS: Vancomycin, Random 25.3 ug/mL (See Comment)
--- NOTE | 2017-05-14 23:42 | PRG ---
DATE OF SERVICE: 05/14/2017 SUBJECTIVE: Any Gao is a 56-year-old f, gen surgery consult for MediPort placement. Vocalized no complaints. OBJECTIVE: VITAL SIGNS: Reviewed and stable. Patient is afebrile. GENERAL: The patient is resting in bed in no acute distress. LUNGS: Breathing is nonlabored. ASSESSMENT AND PLAN: As documented by Dr. Mcneill in his consultation note. Patient is n.p.o. after midnight with plans for MediPort placement in a.m. [facility]
[2017-05-15 05:22] LABS: Anion Gap 12 mmol/L (10-20); BUN (Urea Nitrogen) 9 mg/dL (9.8-20.1); Calc. Creatinine Clearance 129 mL/min (70-130); Calcium 7.7 mg/dL (7.8-10.44); Carbon Dioxide 17 mmol/L (22-29); Chloride 108 mmol/L (98-107); Estimated GFR-MDRD Greater than 90; Glucose 73 mg/dL (70-105); Potassium 3.7 mmol/L (3.5-5.1); Sodium 133 mmol/L (136-145)
[2017-05-15] MEDS: Sodium Chloride 0.9% 1,000 ML IV SCH ×2 (05:26→16:55)
[2017-05-15 05:27] LABS: INR-International Normal Ratio 1.3
[2017-05-15] MEDS: Famotidine 20 MG TAB PO SCH ×2 (07:37→20:17)
[2017-05-15] MEDS: Docusate 100 MG CAP PO SCH ×2 (07:37→20:17)
[2017-05-15] MEDS: Enoxaparin Sodium 60 MG/0.6 ML SYRINGE SC SCH ×2 (07:37→20:04)
--- NOTE | 2017-05-15 10:01 | PQF ---
DATE: 05-15-17 ATTN: DR. KASHIF TONY Please exercise your independent, professional judgment in responding to the clarification form. Clinical indicators are provided on the bottom of this form for your review Please check appropriate box(s): [ ] Sepsis due to UTI ( Catheter Associated ) [ X ] Sepsis due to Sacral Wound [ ] Other diagnosis [ ] Unable to determine In addition, please specify: Present on Admission (POA): [ X ] Yes [ ] No [ ] Unable to determine For continuity of documentation, please document condition throughout progress notes and discharge summary. Thank You. CLINICAL INDICATORS - SIGNS / SYMPTOMS / LABS H&P: SEPSIS LIKELY INVASIVE URINARY TRACT INFECTION PN DR. TONY 05-13-17: SACRAL DECUBITUS ULCER STAGE 4, ACUTE UTI ASSOCIATED UTI, ACUTE SEPSIS BANDS 05-11-17: 18 RISK FACTORS: CONSULT DR. GREWAL 05-13-17: RECENT TREATMENT FOR SACRAL OSTEOMYELITIS AFTER DEBRIDEMENT. OF NOTE, MRSA WAS RETRIEVED FROM CULTURES OBTAINED DURING THE SURGICAL PROCEDURE IN ADDITION TO THE ANAEROBES IDENTIFIED. H&P: SEPSIS LIKELY INVASIVE UTI TREATMENTS: DAILY CBC ID CONSULT (05-13-16): VANCOMYCIN (ER) ROCEPHIN (This form is maintained as a part of the permanent medical record) 2014 [employer] All Rights Reserved SUZIE [email or web address] Office: [phone] [facility] [email or web address]
--- NOTE | 2017-05-15 10:12 | CON ---
DATE OF CONSULTATION: 05/15/2017 REQUESTING PHYSICIAN: Will Amor M.D. REASON FOR CONSULTATION: Recurrent deep venous thromboses. HISTORY OF PRESENT ILLNESS: The patient is a 56-year-old woman who for around a year has been olga plegic as a sequela of the Guillain-Hannaford syndrome. She has had multiple issues related to her quadr iplegia including development of sacral decubitus and deep venous thromboses. She has undergone a di verting colostomy and suprapubic catheter placement. She apparently has had deep venous thromboses o n more than one occasion. She has been prescribed Coumadin by her account. She was taken off of it at one point and then restarted. Several days ago, she presented to the emergency room with some rat her nondescript issues related to colostomy maintenance, but while there was noted to have borderline blood pressure and was complaining of lower abdominal pain. She had a bandemia and pyuria. She was started on broad-spectrum antibiotics, admitted to the hospital. Her urine culture grew out a Pseud omonas aeruginosa with multiple sensitivities and she is currently on Levaquin to which the Pseudomon as is sensitive. She underwent bilateral lower extremity venous Dopplers, which showed bilateral DVT s that for the most part were nonocclusive. Her INR on admission was 1.1 in spite of reportedly bein g on 5 mg of Coumadin a day. The patient denies any leg pain or swelling. She denies any chest pain , shortness of breath or hemoptysis. PAST MEDICAL HISTORY: Significant for Guillain-Hannaford syndrome with associated quadriplegia. She has been bedridden and has had a colostomy and suprapubic catheter placement and has had sacral decubitu s and has had deep venous thromboses. Her past medical history is also significant for lupus and hyp ertension. HOME MEDICATIONS: Have included hydralazine, clonidine, Coumadin, potassium, MiraLax, CellCept. She is currently on Levaquin, vancomycin, Lovenox 60 mg q.12 h, Coumadin 5 mg every evening, Pepcid and Colace. ALLERGIES: She denies any medical allergies. SOCIAL HISTORY: She does not smoke. FAMILY HISTORY: Significant for heart disease. REVIEW OF SYSTEMS: Negative for any chest pain. Negative for any shortness of breath. Negative for any hemoptysis or other cough. It was positive for lower abdominal pain on presentation. Negative for any lower extremity swelling. PHYSICAL EXAMINATION: GENERAL: She is a chronically ill-appearing quadriplegic woman. VITAL SIGNS: Currently being afebrile with her current temperature of 97.7, heart rate 86, blood pre ssure 135/84, O2 sats have been in the high 90s-100% without supplemental oxygen. HEENT: She has extremely poor dentition. LUNGS: Clear breath sounds. CARDIOVASCULAR: Regular rate and rhythm. ABDOMEN: Soft and nontender. EXTREMITIES: Her lower extremities are soft and nontender. There is perhaps a little bit of swellin g in the dorsum of her feet. She has got flexion contractures consistent with her chronic bedridden status. LABORATORY DATA: Her laboratory exam currently shows a white count of 3.3, hemoglobin of 8, hematocr it 25.6, platelets 315,000, and MCV of 88.3. Her hemoglobin was 10.4 on admission and overnight drop ped down to 9 and has drifted on down to 8, her sodium was 133, potassium 3.7, chloride 108, CO2 17, glucose 73, BUN 9, creatinine 0.47. Her PT was 13.8, INR 1.1 on admission. Her PT seems to be level ing off at around 16 and INR at 1.3 on her current dosing of Coumadin. Her lower extremity Doppler b y report shows non-compressibility consistent with DVTs bilaterally. On the right side, the profunda vein appears to be occluded. Otherwise, the thrombus appears to be nonocclusive. ASSESSMENT AND PLAN: The patient does not fit into a classic category where a vena caval filtration is indicated. Her noncompliance and difficulty with anticoagulation approximates recurrent deep veno us thromboses with contraindication to anticoagulation. Certainly her high risk for deep venous thro mboses is not going to get any better and concerns about pulmonary emboli are quite legitimate. This may very well be a reasonable approach in this noncompliant patient.
[2017-05-15] MEDS ORDERED: PHENYLEPHRINE-NS 100 MCG/ML 10 ML SYRINGE ONE (11:48)
[2017-05-15] MEDS ORDERED: Propofol 200 MG/20 ML VIAL ONE (11:48)
[2017-05-15] MEDS ORDERED: Lidocaine 1% PF 5 ML VIAL ONE (11:48)
[2017-05-15] MEDS ORDERED: ePHEDrine/0.9% NaCl/PF SYRINGE 50 mg/10 ml ONE (11:48)
[2017-05-15] MEDS ORDERED: Sodium Chloride 0.9% 10 ML ONE (12:22)
[2017-05-15] MEDS ORDERED: Bupivacaine/Epinephrine 0.25% 30 ML VIAL ONE (12:22)
[2017-05-15] MEDS ORDERED: Lidocaine 2% PF 5 ML VIAL ONE ×2 (12:22→12:23)
[2017-05-15] MEDS ORDERED: Fentanyl 100 MCG/2 ML VIAL ONE (12:25)
[2017-05-15] MEDS ORDERED: Propofol 500 MG/50 ML VIAL ONE (12:25)
[2017-05-15] MEDS ORDERED: Midazolam HCl 2 mg/2 ml Vial ONE (12:29)
[2017-05-15] MEDS ORDERED: Promethazine HCl 25 MG/ML VIAL SLOW IVP PRN (14:45)
[2017-05-15] MEDS ORDERED: Promethazine HCl 25 MG/ML VIAL IM PRN (14:45)
[2017-05-15] MEDS ORDERED: Ondansetron HCl/PF 4 MG/2 ML Vial IVP PRN (14:45)
--- NOTE | 2017-05-15 15:08 | RAD ---
CHEST ONE VIEW: History: Mediport placement. Comparison: 11-23-16 FINDINGS: There is a port catheter in place with tip at the cavoatrial junction. No pneumothorax. Layering left pleural effusion, left basilar opacity. IMPRESSION: 1. Satisfactory appearance of the port catheter without complication. 2. Left lower lobe opacity and layering effusion. POS: [facility]
--- NOTE | 2017-05-15 15:46 | OP ---
DATE OF PROCEDURE: 05/15/2017 PREOPERATIVE DIAGNOSES: 1. Stage 4 sacral decubitus ulcer. 2. Methicillin-resistant Staphylococcus aureus septicemia. POSTOPERATIVE DIAGNOSES: 1. Stage 4 sacral decubitus ulcer. 2. Methicillin-resistant Staphylococcus aureus septicemia. PROCEDURES PERFORMED: Placement of 7.8 Beninese Deltec Port-A-Cath in the left subclavian vein under f luoroscopy. SURGEON: Roberto Mcneill D.O. ANESTHESIA: General. INDICATIONS FOR PROCEDURE: This is a 56-year-old woman with history of systemic lup us erythematosus complicated by functional quadriplegia. The patient has a stage IV sacral decubitus ulcer also with MRSA septicemia. I attempted to place a peripherally inserted central venous cathet er, prolonged antibiotic therapy have been unsuccessful. The patient is brought to the operating soni m for placement of Port-A-Cath. DESCRIPTION OF PROCEDURE: Informed consent obtained from the patient's . The patient was bro ught to the operating room and placed in supine position. Following general anesthesia, the chest wa ll is sterilely prepped and draped in the usual fashion. The skin below the left clavicle was anesth etized with 1% lidocaine and it was carried through subcutaneous tissues. Left subclavian vein was c annulated with an 18 gauge introducer needle after multiple attempts. Dark venous blood was returned . A guidewire was passed through this and advanced into the left subclavian vein without resistance. Proper placement of the guidewire is confirmed by fluoroscopy. A stab incision is made adjacent to the guidewire using an 11 scalpel. The dilator was passed over the guidewire dilating subcutaneous tissues. The dilator was then assembled with an introducer catheter sheath which was passed as a uni t over the guidewire into the left subclavian vein without resistance. The guidewire and the dilator were removed as a unit. A 7.8 Beninese dissect catheter was then advanced through the introducer andrade th into the left subclavian vein without resistance. The introducer sheath was then peeled away leav ing the catheter in place. The catheter is fashioned to length under fluoroscopy. Subcutaneous tiss ues were infiltrated with 1% lidocaine with epinephrine and the left upper chest wall area chosen for the port site. An oblique incision is made with a 15 scalpel. The incision was carried through sub cutaneous tissues maintaining hemostasis using cautery. The distal end of the catheter is pulled thr ough into the pocket and connected to the Port-A-Cath well. The wall is secured to the anterior ches t wall using 3-0 Prolene sutures at 2 points. Using a Kenney needle, dark venous blood was aspirated from the port, which was port flushed with saline and then heparin. Subcutaneous tissues were approx imated over the port using 3-0 Vicryl suture. The skin was then closed over the port using a running stitch of 4-0 Monocryl suture in subcuticular fashion. Dermabond was then applied. The patient josi erated the operation without any apparent complication and remains hemodynamically stable following c ompletion of the procedure. Portable chest x-ray was obtained confirming proper placement of the por t and catheter and no pneumothorax noted.
[2017-05-15] MEDS: Warfarin Sodium 5 MG TAB PO SCH (16:24)
--- NOTE | 2017-05-15 18:21 | PDOC.PN ---
- Subjective Encounter Start Date: 05/15/17 Encounter Start Time: 12:00 Subjective: Patient down for procedure. - Objective Resuscitation Status: Resuscitation Status FULL:Full Resuscitation MAR Reviewed: Yes Vital Signs & Weight: Vital Signs (12 hours) Temp Pulse Resp BP Pulse Ox 05/15/17 08:22 97.7 F 86 16 135/84 100 05/15/17 07:43 97.7 F 86 18 Weight Admit Weight 132 lb Weight 132 lb I&O: 05/14/17 05/15/17 05/16/17 06:59 06:59 06:59 Intake Total 240 120 Output Total 125 430 55 Balance 115 -310 -55 Result Diagrams: 05/14/17 04:27 05/15/17 04:32 Additional Labs: Accuchecks 05/15/17 05/14/17 05/14/17 11:36 16:22 11:42 POC Glucose 75 77 83 Dx/Plan (1) Sacral decubitus ulcer, stage IV Code(s): L89.154 - PRESSURE ULCER OF SACRAL REGION, STAGE 4 Status: Acute Comment: s/p I & d, now with wound vac, evidence progressive osteomyelitis on CT (2) UTI (urinary tract infection) Status: Acute Qualifiers: Urinary tract infection type: catheter-associated UTI Indwelling urinary catheter type: cystostomy catheter (3) Sepsis Code(s): A41.9 - SEPSIS, UNSPECIFIED ORGANISM Status: Acute Qualifiers: Sepsis type: Pseudomonas Qualified Code(s): A41.52 - Sepsis due to Pseudomonas (4) Metabolic acidosis Code(s): E87.2 - ACIDOSIS Status: Acute (5) Anticoagulant long-term use Code(s): Z79.01 - [employer] (CURRENT) USE OF ANTICOAGULANTS Status: Chronic Comment: INR subtherapeutic, suspect non-compliance with home regimen (6) Anemia of chronic disease Code(s): D63.8 - ANEMIA IN OTHER CHRONIC DISEASES CLASSIFIED ELSEWHERE Status : Acute Comment: Improved s/p transfusion, no active bleeding (7) FTT (failure to thrive) in adult Status: Chronic (8) H/O deep venous thrombosis Code(s): Z86.718 - PERSONAL HISTORY OF OTHER VENOUS THROMBOSIS AND EMBOLISM Status: Chronic Comment: BLE DVT last imaged 05/12/17 - Plan cont current plan of care Port placement and possible IVC filter. * . - Discharge Day Encounter end time: 12:00
[2017-05-15 19:40] LABS: Vancomycin, Random 18.8 ug/mL (See Comment)
[2017-05-15] MEDS: Vancomycin HCl 500 MG in Sodium Chloride 0.9% 100 ML IVPB SCH (22:16)
--- NOTE | 2017-05-15 22:41 | PRG ---
DATE OF SERVICE: 05/15/2017 SUBJECTIVE: The patient is postop day #0 status post Port-A-Cath placement by Dr. Mcneill. She has no complaints tonight. OBJECTIVE: Vital signs reviewed. The patient is mildly tachycardic. Blood pressure is stable. Pat ient is afebrile. Surgical site clean, dry and intact. ASSESSMENT AND PLAN: Status post Port-A-Cath placement. Continue to monitor. Medical management pe r primary.
[2017-05-16] MEDS: Sodium Chloride 0.9% 1,000 ML IV SCH ×3 (02:29→22:42)
[2017-05-16 05:35] LABS: Hemoglobin 7.7 g/dL (12.0-16.0)
[2017-05-16 05:44] LABS: Platelet Count 340 thou/uL (130-400)
[2017-05-16 05:50] LABS: INR-International Normal Ratio 1.3; PTT 45.7 SEC (22.9-36.1); Prothrombin Time 16.4 SEC (12.0-14.7)
[2017-05-16 06:31] LABS: Calc. Creatinine Clearance 135 mL/min (70-130); Estimated GFR-MDRD Greater than 90
[2017-05-16] MEDS: Docusate 100 MG CAP PO SCH ×2 (09:09→21:20)
[2017-05-16] MEDS: Famotidine 20 MG TAB PO SCH ×2 (09:09→21:20)
--- NOTE | 2017-05-16 12:09 | PDOC.PN ---
- Subjective Encounter Start Date: 05/16/17 Encounter Start Time: 12:30 Subjective: Patient with a bit of left chest wall soreness from port placement. No -: other complaints. Waiting for IVC filter placement. - Objective Resuscitation Status: Resuscitation Status FULL:Full Resuscitation MAR Reviewed: Yes Vital Signs & Weight: Vital Signs (12 hours) Temp Pulse Resp BP Pulse Ox 05/16/17 07:59 98 F 99 16 162/99 H 98 05/16/17 04:00 98 F 105 H 16 132/84 98 Weight Admit Weight 132 lb Weight 132 lb I&O: 05/15/17 05/16/17 05/17/17 06:59 06:59 06:59 Intake Total 120 Output Total 430 305 Balance -310 -305 Result Diagrams: 05/16/17 04:55 05/16/17 04:55 Additional Labs: Accuchecks 05/15/17 05/14/17 05/14/17 11:36 16:22 11:42 POC Glucose 75 77 83 Phys Exam - Physical Examination Constitutional: NAD HEENT: moist MMs Respiratory: no wheezing, no rales, no rhonchi left chest port in place, incision well closed, intact Cardiovascular: RRR Gastrointestinal: soft, non-tender, positive bowel sounds Psychiatric: normal affect, A&O x 3 Dx/Plan (1) Sacral decubitus ulcer, stage IV Code(s): L89.154 - PRESSURE ULCER OF SACRAL REGION, STAGE 4 Status: Acute Comment: s/p I & d, now with wound vac, evidence progressive osteomyelitis on CT (2) UTI (urinary tract infection) Status: Acute Qualifiers: Urinary tract infection type: catheter-associated UTI Indwelling urinary catheter type: cystostomy catheter (3) Sepsis Code(s): A41.9 - SEPSIS, UNSPECIFIED ORGANISM Status: Acute Qualifiers: Sepsis type: Pseudomonas Qualified Code(s): A41.52 - Sepsis due to Pseudomonas (4) Metabolic acidosis Code(s): E87.2 - ACIDOSIS Status: Acute (5) Anticoagulant long-term use Code(s): Z79.01 - [facility] (CURRENT) USE OF ANTICOAGULANTS Status: Chronic Comment: INR subtherapeutic, suspect non-compliance with home regimen (6) Anemia of chronic disease Code(s): D63.8 - ANEMIA IN OTHER CHRONIC DISEASES CLASSIFIED ELSEWHERE Status : Acute Comment: Improved s/p transfusion, no active bleeding (7) FTT (failure to thrive) in adult Status: Chronic (8) H/O deep venous thrombosis Code(s): Z86.718 - PERSONAL HISTORY OF OTHER VENOUS THROMBOSIS AND EMBOLISM Status: Chronic Comment: BLE DVT last imaged 05/12/17, cardiovascular surgery to do IVC filter this afternoon - Plan cont current plan of care, continue antibiotics, DVT proph w/lovenox Port placed for IV access. Arranging placement with case management. * . - Discharge Day Encounter end time: 13:00
[2017-05-16] MEDS: Vancomycin HCl 500 MG in Sodium Chloride 0.9% 100 ML IVPB SCH ×2 (12:34→22:43)
[2017-05-16] MEDS ORDERED: Midazolam HCl 2 mg/2 ml Vial ONE (16:18)
[2017-05-16] MEDS ORDERED: Fentanyl 100 MCG/2 ML VIAL ONE (16:18)
[2017-05-16] MEDS ORDERED: Iopamidol 370 76% 50 ML VIAL FS ONE (16:40)
[2017-05-16] MEDS: Warfarin Sodium 5 MG TAB PO SCH (17:49)
[2017-05-16 21:19] LABS: Vancomycin, Random 19.7 ug/mL (See Comment)
[2017-05-17 05:52] LABS: INR-International Normal Ratio 1.4; PTT 49.7 SEC (22.9-36.1); Prothrombin Time 17.8 SEC (12.0-14.7)
--- NOTE | 2017-05-17 07:10 | CCL ---
DATE OF PROCEDURE: 05/16/2017 PROCEDURES PERFORMED: Inferior vena cavogram with interpretation. Erasmo Kohler inferior vena cav a filter placement under ultrasonic and fluoroscopic guidance. PREOPERATIVE DIAGNOSIS: Bilateral deep venous thromboses with Coumadin noncompliance. POSTOPERATIVE DIAGNOSIS: Bilateral thromboses with Coumadin noncompliance. SURGEON: Jackson Almaraz MD. BIOMEDICAL ANALYTICAL SCIENTIST: Nino Hooper M.D. ANESTHESIA: Intravenous sedation consisting of 25 mcg of fentanyl and 1 mg of Versed IV with 1% lid ocaine local anesthesia. INDICATIONS: The patient is a 56-year-old quadriplegic woman who has been repeatedly noncompliant wi medical management including anticoagulation for deep venous thromboses. She is found to have barrett ateral DVTs and has opted to place a vena cava filter for pulmonary embolism prophylaxis. FINDINGS: Normal caliber and configuration of the inferior cava without any obvious filling defects. The renal veins were identified at the inferior margin of L2. The cephalad tip of the device was p laced at the L2-L3 interspace. A total of 18 mL of half and half mixture of diluted contrast was use d. Total fluoroscopy time was 6 minutes. NARRATIVE REPORT: After informed consent was obtained, the patient was taken to the pit laborer and sumaya anita in the supine position on the cath table. Her groins were prepped and draped in sterile fashion. Ultrasonography was done to visualize the femoral vessels bilaterally. On the right side, the comm on femoral vein could readily be appreciated, but was not compressible even though filling defects wi thin it were not readily appreciated. On the left side, the femoral vein was compressible. The gretchen ent was sedated and 1% lidocaine was used to infiltrate the skin, subcutaneous tissue, and the deep t issues just medial to the palpable femoral pulse. Using ultrasonic guidance, the femoral vein was ca nnulated with a large bore needle although no arterial sticks were performed. Multiple attempts at c annulating the vein even with ultrasonic guidance were necessary in order to cannulate it and be able to easily pass a guidewire. The guidewire was passed into the vena cava to the right of the vertebr al column up to the level of diaphragm under fluoroscopic guidance. Under fluoroscopy, the tract was dilated and the sheath was inserted. The markers on the dilator and sheath were seen radiographical ly. The guidewire was removed and venacavogram was performed. A total of 3 injections of contrast m aterial were performed, none of which clearly demonstrated the renal veins although their origins wer e suggested. The guidewire was reintroduced and then an IM catheter was placed. With this, the righ t and left renal veins were selectively cannulated confirming cannulation with guidewire passage. Th e IM catheter was removed. The compressed vena cava filter was affixed to the origin of the sheath a nd then advanced the cephalad tip as it was positioned at the L2-L3 interspace and while visualized, it was held in position as the sheath was withdrawn to deploy the filter. The sheath was then remove d and hemostasis at the puncture site was achieved with direct pressure. The patient was returned to her room on the [facility] in stable condition. POS: [facility]
[2017-05-17] MEDS: Famotidine 20 MG TAB PO SCH ×3 (08:51→21:30)
[2017-05-17] MEDS: Docusate 100 MG CAP PO SCH ×2 (08:51→21:28)
[2017-05-17] MEDS: Enoxaparin Sodium 60 MG/0.6 ML SYRINGE SC SCH ×2 (09:00→21:29)
[2017-05-17] MEDS: Vancomycin HCl 500 MG in Sodium Chloride 0.9% 100 ML IVPB SCH ×2 (10:38→21:29)
[2017-05-17] MEDS: Sodium Chloride 0.9% 1,000 ML IV SCH ×2 (10:39→19:50)
--- NOTE | 2017-05-17 13:11 | PDOC.PN ---
- Subjective Encounter Start Date: 05/17/17 Encounter Start Time: 13:09 Subjective: Seen and examined no new complaint except pain - Objective Resuscitation Status: Resuscitation Status FULL:Full Resuscitation Vital Signs & Weight: Vital Signs (12 hours) Temp Pulse Resp BP BP Pulse Ox 05/17/17 08:35 97.9 F 98 18 123/83 100 05/17/17 08:00 97.9 F 98 18 100 05/17/17 04:00 98.1 F 83 16 113/77 93 L Weight Admit Weight 132 lb Weight 132 lb I&O: 05/16/17 05/17/17 05/18/17 06:59 06:59 06:59 Intake Total 240 120 Output Total 305 175 Balance -305 65 120 Result Diagrams: 05/16/17 04:55 05/16/17 04:55 Phys Exam - Physical Examination Constitutional: NAD HEENT: PERRLA, moist MMs, sclera anicteric, TM's clear, oral pharynx no lesions Neck: no nodes, no JVD, supple, full ROM Respiratory: no wheezing, no rales, no rhonchi, clear to auscultation bilateral Cardiovascular: RRR, no significant murmur, no rub Gastrointestinal: soft, non-tender, no distention, positive bowel sounds Musculoskeletal: no edema, pulses present Dx/Plan (1) Sepsis Code(s): A41.9 - SEPSIS, UNSPECIFIED ORGANISM Status: Acute Qualifiers: Sepsis type: Pseudomonas Qualified Code(s): A41.52 - Sepsis due to Pseudomonas (2) UTI (urinary tract infection) Status: Acute Qualifiers: Urinary tract infection type: catheter-associated UTI Indwelling urinary catheter type: cystostomy catheter (3) Anemia of chronic disease Code(s): D63.8 - ANEMIA IN OTHER CHRONIC DISEASES CLASSIFIED ELSEWHERE Status : Acute Comment: Improved s/p transfusion, no active bleeding (4) Sacral decubitus ulcer, stage IV Code(s): L89.154 - PRESSURE ULCER OF SACRAL REGION, STAGE 4 Status: Acute Comment: s/p I & d, now with wound vac, evidence progressive osteomyelitis on CT (5) FTT (failure to thrive) in adult Status: Chronic (6) Metabolic acidosis Code(s): E87.2 - ACIDOSIS Status: Acute (7) S/P insertion of IVC (inferior vena caval) filter Status: Acute (8) Diastolic CHF Code(s): I50.30 - UNSPECIFIED DIASTOLIC (CONGESTIVE) HEART FAILURE Status: Chronic Qualifiers: Congestive heart failure chronicity: chronic Comment: Compensated (9) H/O colostomy Code(s): Z98.890 - OTHER SPECIFIED POSTPROCEDURAL STATES Status: Chronic (10) H/O deep venous thrombosis Code(s): Z86.718 - PERSONAL HISTORY OF OTHER VENOUS THROMBOSIS AND EMBOLISM Status: Chronic Comment: BLE DVT last imaged 05/12/17, cardiovascular surgery to do IVC filter this afternoon - Plan plan discussed w/ family, PT/OT, social media coordinator, respiratory therapy Patient doesnt have SNF place,ment coverage--Casemanager working on -: Medicaid pending with [employer] * .
[2017-05-17] MEDS: Morphine 4 MG/ML VIAL SLOW IVP PRN (15:02)
[2017-05-17] MEDS: Warfarin Sodium 5 MG TAB PO SCH (18:42)
[2017-05-18 04:37] LABS: INR-International Normal Ratio 1.6; PTT 49.4 SEC (22.9-36.1); Prothrombin Time 19.4 SEC (12.0-14.7)
[2017-05-18 04:42] LABS: Hemoglobin 7.1 g/dL (12.0-16.0); Platelet Count 273 thou/uL (130-400)
[2017-05-18 04:44] LABS: Calc. Creatinine Clearance 132 mL/min (70-130); Estimated GFR-MDRD Greater than 90
[2017-05-18] MEDS: Sodium Chloride 0.9% 1,000 ML IV SCH ×3 (06:06→20:32)
[2017-05-18] MEDS: Famotidine 20 MG TAB PO SCH ×3 (07:44→20:35)
[2017-05-18] MEDS: Enoxaparin Sodium 60 MG/0.6 ML SYRINGE SC SCH ×2 (07:44→20:30)
[2017-05-18] MEDS: Docusate 100 MG CAP PO SCH ×2 (07:48→20:30)
[2017-05-18 09:59] LABS: Vancomycin, Trough 24.3 ug/mL
[2017-05-18] MEDS: Vancomycin HCl 500 MG in Sodium Chloride 0.9% 100 ML IVPB SCH (11:13)
[2017-05-18] MEDS: Warfarin Sodium 5 MG TAB PO SCH (16:44)
[2017-05-18] MEDS: Morphine 4 MG/ML VIAL SLOW IVP PRN (17:59)
--- NOTE | 2017-05-18 18:40 | PDOC.PN ---
- Subjective Encounter Start Date: 05/18/17 Encounter Start Time: 18:38 Subjective: Seen and examined -no new complaint - Objective Resuscitation Status: Resuscitation Status FULL:Full Resuscitation Vital Signs & Weight: Vital Signs (12 hours) Temp Pulse Resp BP Pulse Ox 05/18/17 08:00 97.4 F L 96 18 145/87 H 100 05/18/17 07:49 97.8 F 93 18 Weight Admit Weight 132 lb Weight 132 lb I&O: 05/17/17 05/18/17 05/19/17 06:59 06:59 06:59 Intake Total 240 600 500 Output Total 175 250 100 Balance 65 350 400 Result Diagrams: 05/18/17 03:38 05/18/17 03:38 Phys Exam - Physical Examination Constitutional: NAD HEENT: PERRLA, moist MMs, sclera anicteric, TM's clear Neck: no nodes, no JVD, supple Respiratory: no wheezing, no rales, no rhonchi Cardiovascular: RRR, no significant murmur, no rub Gastrointestinal: soft, non-tender, no distention, positive bowel sounds Dx/Plan (1) Sepsis Code(s): A41.9 - SEPSIS, UNSPECIFIED ORGANISM Status: Acute Qualifiers: Sepsis type: Pseudomonas Qualified Code(s): A41.52 - Sepsis due to Pseudomonas (2) UTI (urinary tract infection) Status: Acute Qualifiers: Urinary tract infection type: catheter-associated UTI Indwelling urinary catheter type: cystostomy catheter (3) Anemia of chronic disease Code(s): D63.8 - ANEMIA IN OTHER CHRONIC DISEASES CLASSIFIED ELSEWHERE Status : Acute Comment: Improved s/p transfusion, no active bleeding (4) Sacral decubitus ulcer, stage IV Code(s): L89.154 - PRESSURE ULCER OF SACRAL REGION, STAGE 4 Status: Acute Comment: s/p I & d, now with wound vac, evidence progressive osteomyelitis on CT (5) FTT (failure to thrive) in adult Status: Chronic (6) Metabolic acidosis Code(s): E87.2 - ACIDOSIS Status: Acute (7) S/P insertion of IVC (inferior vena caval) filter Status: Acute (8) Diastolic CHF Code(s): I50.30 - UNSPECIFIED DIASTOLIC (CONGESTIVE) HEART FAILURE Status: Chronic Qualifiers: Congestive heart failure chronicity: chronic Qualified Code(s): I50.32 - Chronic diastolic (congestive) heart failure Comment: Compensated (9) H/O colostomy Code(s): Z98.890 - OTHER SPECIFIED POSTPROCEDURAL STATES Status: Chronic (10) H/O deep venous thrombosis Code(s): Z86.718 - PERSONAL HISTORY OF OTHER VENOUS THROMBOSIS AND EMBOLISM Status: Chronic Comment: BLE DVT last imaged 05/12/17, cardiovascular surgery to do IVC filter this afternoon (11) Hypokalemia Code(s): E87.6 - HYPOKALEMIA Status: Acute - Plan plan discussed w/ family, social media intern Dispo pending placement at [facility] * .
[2017-05-18] MEDS: Vancomycin HCl 750 MG in Sodium Chloride 0.9% 250 ML 250 ML IVPB SCH (20:30)
[2017-05-19] MEDS: Sodium Chloride 0.9% 1,000 ML IV SCH ×3 (00:58→20:13)
[2017-05-19 04:52] LABS: INR-International Normal Ratio 1.8; Prothrombin Time 21.1 SEC (12.0-14.7)
[2017-05-19 04:53] LABS: PTT 59.6 SEC (22.9-36.1)
[2017-05-19] MEDS: Famotidine 20 MG TAB PO SCH ×2 (08:50→20:13)
[2017-05-19] MEDS: Morphine 4 MG/ML VIAL SLOW IVP PRN ×2 (08:51→21:24)
[2017-05-19] MEDS: Enoxaparin Sodium 60 MG/0.6 ML SYRINGE SC SCH ×2 (08:51→20:13)
[2017-05-19] MEDS: Docusate 100 MG CAP PO SCH ×2 (09:06→20:13)
[2017-05-19] MEDS ORDERED: Potassium Chloride 20 MEQ TAB PO SCH (09:30)
--- NOTE | 2017-05-19 09:31 | PDOC.PN ---
- Subjective Encounter Start Date: 05/19/17 Encounter Start Time: 09:30 Subjective: Seen and examined condition same - Objective Resuscitation Status: Resuscitation Status FULL:Full Resuscitation Vital Signs & Weight: Vital Signs (12 hours) Temp Pulse Resp BP Pulse Ox 05/19/17 08:00 97.5 F L 88 18 139/82 98 Weight Admit Weight 132 lb Weight 132 lb I&O: 05/18/17 05/19/17 05/20/17 06:59 06:59 06:59 Intake Total 600 1940 Output Total 250 350 Balance 350 1590 Result Diagrams: 05/18/17 03:38 05/18/17 03:38 Phys Exam - Physical Examination Constitutional: NAD HEENT: PERRLA, moist MMs, sclera anicteric, TM's clear Neck: no nodes, no JVD, supple, full ROM Respiratory: no wheezing, no rales, no rhonchi, clear to auscultation bilateral Cardiovascular: RRR, no significant murmur, no rub Gastrointestinal: soft, non-tender, no distention, positive bowel sounds Musculoskeletal: no edema, pulses present Dx/Plan (1) Sepsis Code(s): A41.9 - SEPSIS, UNSPECIFIED ORGANISM Status: Acute Qualifiers: Sepsis type: Pseudomonas Qualified Code(s): A41.52 - Sepsis due to Pseudomonas (2) UTI (urinary tract infection) Status: Acute Qualifiers: Urinary tract infection type: catheter-associated UTI Indwelling urinary catheter type: cystostomy catheter (3) Anemia of chronic disease Code(s): D63.8 - ANEMIA IN OTHER CHRONIC DISEASES CLASSIFIED ELSEWHERE Status : Acute Comment: Improved s/p transfusion, no active bleeding (4) Sacral decubitus ulcer, stage IV Code(s): L89.154 - PRESSURE ULCER OF SACRAL REGION, STAGE 4 Status: Acute Comment: s/p I & d, now with wound vac, evidence progressive osteomyelitis on CT (5) FTT (failure to thrive) in adult Status: Chronic (6) Metabolic acidosis Code(s): E87.2 - ACIDOSIS Status: Acute (7) S/P insertion of IVC (inferior vena caval) filter Status: Acute (8) Diastolic CHF Code(s): I50.30 - UNSPECIFIED DIASTOLIC (CONGESTIVE) HEART FAILURE Status: Chronic Qualifiers: Congestive heart failure chronicity: chronic Qualified Code(s): I50.32 - Chronic diastolic (congestive) heart failure Comment: Compensated (9) H/O colostomy Code(s): Z98.890 - OTHER SPECIFIED POSTPROCEDURAL STATES Status: Chronic (10) H/O deep venous thrombosis Code(s): Z86.718 - PERSONAL HISTORY OF OTHER VENOUS THROMBOSIS AND EMBOLISM Status: Chronic Comment: BLE DVT last imaged 05/12/17, cardiovascular surgery to do IVC filter this afternoon (11) Hypokalemia Code(s): E87.6 - HYPOKALEMIA Status: Acute - Plan plan discussed w/ family, PT/OT, social science manager Awaiting placement * .
[2017-05-19] MEDS: Warfarin Sodium 5 MG TAB PO SCH (16:36)
[2017-05-19] MEDS: Vancomycin HCl 750 MG in Sodium Chloride 0.9% 250 ML 250 ML IVPB SCH (20:14)
[2017-05-20 04:36] LABS: Platelet Count 258 thou/uL (130-400)
[2017-05-20 04:56] LABS: INR-International Normal Ratio 1.8; Prothrombin Time 21.7 SEC (12.0-14.7)
[2017-05-20 04:59] LABS: Anion Gap 10 mmol/L (10-20); BUN (Urea Nitrogen) 8 mg/dL (9.8-20.1); Calc. Creatinine Clearance 132 mL/min (70-130); Calcium 7.3 mg/dL (7.8-10.44); Carbon Dioxide 15 mmol/L (22-29); Chloride 115 mmol/L (98-107); Estimated GFR-MDRD Greater than 90; Glucose 76 mg/dL (70-105); Potassium 3.1 mmol/L (3.5-5.1); Sodium 137 mmol/L (136-145)
[2017-05-20] MEDS: Sodium Chloride 0.9% 1,000 ML IV SCH ×2 (06:24→17:49)
[2017-05-20] MEDS: Docusate 100 MG CAP PO SCH ×2 (08:40→21:00)
[2017-05-20] MEDS: Famotidine 20 MG TAB PO SCH ×2 (08:40→21:00)
[2017-05-20] MEDS: Enoxaparin Sodium 60 MG/0.6 ML SYRINGE SC SCH ×2 (08:40→22:25)
[2017-05-20] MEDS: Warfarin Sodium 5 MG TAB PO SCH (17:49)
--- NOTE | 2017-05-20 19:17 | PDOC.PN ---
- Subjective Encounter Start Date: 05/20/17 Encounter Start Time: 19:14 Subjective: seen and examined -condition the same - Objective Resuscitation Status: Resuscitation Status FULL:Full Resuscitation Vital Signs & Weight: Vital Signs (12 hours) Temp Pulse Resp BP Pulse Ox 05/20/17 08:00 97.4 F L 75 16 146/88 H 100 Weight Admit Weight 132 lb Weight 132 lb I&O: 05/19/17 05/20/17 05/21/17 06:59 06:59 06:59 Intake Total 1940 1440 Output Total 350 250 Balance 1590 1190 Result Diagrams: 05/20/17 03:52 05/20/17 03:52 Phys Exam - Physical Examination Constitutional: NAD HEENT: PERRLA, moist MMs, sclera anicteric, TM's clear Neck: no nodes, no JVD, supple Respiratory: no wheezing, no rales, no rhonchi, clear to auscultation bilateral Cardiovascular: RRR, no significant murmur, no rub Gastrointestinal: soft, non-tender, no distention Musculoskeletal: no edema, pulses present Dx/Plan (1) Sepsis Code(s): A41.9 - SEPSIS, UNSPECIFIED ORGANISM Status: Acute Qualifiers: Sepsis type: Pseudomonas Qualified Code(s): A41.52 - Sepsis due to Pseudomonas (2) UTI (urinary tract infection) Status: Acute Qualifiers: Urinary tract infection type: catheter-associated UTI Indwelling urinary catheter type: cystostomy catheter (3) Anemia of chronic disease Code(s): D63.8 - ANEMIA IN OTHER CHRONIC DISEASES CLASSIFIED ELSEWHERE Status : Acute Comment: Improved s/p transfusion, no active bleeding (4) Sacral decubitus ulcer, stage IV Code(s): L89.154 - PRESSURE ULCER OF SACRAL REGION, STAGE 4 Status: Acute Comment: s/p I & d, now with wound vac, evidence progressive osteomyelitis on CT (5) FTT (failure to thrive) in adult Status: Chronic (6) Metabolic acidosis Code(s): E87.2 - ACIDOSIS Status: Acute (7) S/P insertion of IVC (inferior vena caval) filter Status: Acute (8) Diastolic CHF Code(s): I50.30 - UNSPECIFIED DIASTOLIC (CONGESTIVE) HEART FAILURE Status: Chronic Qualifiers: Congestive heart failure chronicity: chronic Qualified Code(s): I50.32 - Chronic diastolic (congestive) heart failure Comment: Compensated (9) H/O colostomy Code(s): Z98.890 - OTHER SPECIFIED POSTPROCEDURAL STATES Status: Chronic (10) H/O deep venous thrombosis Code(s): Z86.718 - PERSONAL HISTORY OF OTHER VENOUS THROMBOSIS AND EMBOLISM Status: Chronic Comment: BLE DVT last imaged 05/12/17, cardiovascular surgery to do IVC filter this afternoon (11) Hypokalemia Code(s): E87.6 - HYPOKALEMIA Status: Acute (12) Acidosis, metabolic Code(s): E87.2 - ACIDOSIS Status: Acute - Plan plan discussed w/ family, continue antibiotics, PT/OT, marriage and family social worker, respiratory therapy Dispo challenge-medca[facility] pending bed * .
[2017-05-20] MEDS ORDERED: Potassium Chloride 20 MEQ TAB PO SCH (19:30)
[2017-05-20 21:10] LABS: Vancomycin, Trough 26.4 ug/mL
[2017-05-21 05:42] LABS: INR-International Normal Ratio 2.1; Prothrombin Time 24.6 SEC (12.0-14.7)
[2017-05-21 05:43] LABS: PTT 70.5 SEC (22.9-36.1)
[2017-05-21 06:03] LABS: Anion Gap 9 mmol/L (10-20); BUN (Urea Nitrogen) 8 mg/dL (9.8-20.1); Calc. Creatinine Clearance 127 mL/min (70-130); Calcium 7.3 mg/dL (7.8-10.44); Carbon Dioxide 15 mmol/L (22-29); Chloride 116 mmol/L (98-107); Estimated GFR-MDRD Greater than 90; Glucose 81 mg/dL (70-105); Sodium 137 mmol/L (136-145)
[2017-05-21] MEDS: Enoxaparin Sodium 60 MG/0.6 ML SYRINGE SC SCH ×2 (09:06→23:52)
[2017-05-21] MEDS: Docusate 100 MG CAP PO SCH ×2 (09:07→21:00)
[2017-05-21] MEDS: Famotidine 20 MG TAB PO SCH ×2 (09:08→21:00)
[2017-05-21] MEDS: Potassium Chloride 20 MEQ TAB PO SCH ×2 (09:08→17:28)
[2017-05-21 09:29] LABS: Vancomycin, Random 24.7 ug/mL (See Comment)
[2017-05-21] MEDS: Warfarin Sodium 5 MG TAB PO SCH (17:42)
--- NOTE | 2017-05-21 19:24 | PDOC.PN ---
- Subjective Encounter Start Date: 05/21/17 Encounter Start Time: 19:23 Subjective: Seen and examined - Objective Resuscitation Status: Resuscitation Status FULL:Full Resuscitation Vital Signs & Weight: Vital Signs (12 hours) Temp Pulse Resp BP Pulse Ox 05/21/17 08:00 97.6 F 98 18 149/86 H 99 Weight Admit Weight 132 lb Weight 132 lb I&O: 05/20/17 05/21/17 05/22/17 06:59 06:59 06:59 Intake Total 1440 350 Output Total 250 280 Balance 1190 70 Result Diagrams: 05/20/17 03:52 05/21/17 04:44 Phys Exam - Physical Examination Constitutional: NAD HEENT: PERRLA, moist MMs, sclera anicteric, TM's clear, oral pharynx no lesions Neck: no nodes, no JVD, supple, full ROM Respiratory: no wheezing, no rhonchi Cardiovascular: no significant murmur, no rub Gastrointestinal: soft, non-tender, no distention, positive bowel sounds Musculoskeletal: no edema, pulses present Dx/Plan (1) Sepsis Code(s): A41.9 - SEPSIS, UNSPECIFIED ORGANISM Status: Acute Qualifiers: Sepsis type: Pseudomonas Qualified Code(s): A41.52 - Sepsis due to Pseudomonas (2) UTI (urinary tract infection) Status: Acute Qualifiers: Urinary tract infection type: catheter-associated UTI Indwelling urinary catheter type: cystostomy catheter (3) Anemia of chronic disease Code(s): D63.8 - ANEMIA IN OTHER CHRONIC DISEASES CLASSIFIED ELSEWHERE Status : Acute Comment: Improved s/p transfusion, no active bleeding (4) Sacral decubitus ulcer, stage IV Code(s): L89.154 - PRESSURE ULCER OF SACRAL REGION, STAGE 4 Status: Acute Comment: s/p I & d, now with wound vac, evidence progressive osteomyelitis on CT (5) FTT (failure to thrive) in adult Status: Chronic (6) Metabolic acidosis Code(s): E87.2 - ACIDOSIS Status: Acute (7) S/P insertion of IVC (inferior vena caval) filter Status: Acute (8) Diastolic CHF Code(s): I50.30 - UNSPECIFIED DIASTOLIC (CONGESTIVE) HEART FAILURE Status: Chronic Qualifiers: Congestive heart failure chronicity: chronic Qualified Code(s): I50.32 - Chronic diastolic (congestive) heart failure Comment: Compensated (9) H/O colostomy Code(s): Z98.890 - OTHER SPECIFIED POSTPROCEDURAL STATES Status: Chronic (10) H/O deep venous thrombosis Code(s): Z86.718 - PERSONAL HISTORY OF OTHER VENOUS THROMBOSIS AND EMBOLISM Status: Chronic Comment: BLE DVT last imaged 05/12/17, cardiovascular surgery to do IVC filter this afternoon (11) Hypokalemia Code(s): E87.6 - HYPOKALEMIA Status: Acute (12) Acidosis, metabolic Code(s): E87.2 - ACIDOSIS Status: Acute - Plan PT/OT, outreach and education social worker, respiratory therapy Awaiting plaement * .
[2017-05-22 04:40] LABS: Hemoglobin 6.1 g/dL (12.0-16.0)
[2017-05-22 04:45] LABS: INR-International Normal Ratio 2.5; Prothrombin Time 27.6 SEC (12.0-14.7)
[2017-05-22 04:55] LABS: Anion Gap 7 mmol/L (10-20); BUN (Urea Nitrogen) 9 mg/dL (9.8-20.1); Calc. Creatinine Clearance 113 mL/min (70-130); Calcium 7.3 mg/dL (7.8-10.44); Carbon Dioxide 17 mmol/L (22-29); Chloride 116 mmol/L (98-107); Estimated GFR-MDRD Greater than 90; Glucose 87 mg/dL (70-105); Potassium 3.2 mmol/L (3.5-5.1); Sodium 137 mmol/L (136-145)
[2017-05-22 04:56] LABS: Platelet Count 232 thou/uL (130-400)
[2017-05-22] MEDS: Morphine 4 MG/ML VIAL SLOW IVP PRN (08:44)
[2017-05-22 09:25] LABS: Vancomycin, Random 20.5 ug/mL (See Comment)
[2017-05-22] MEDS: Potassium Chloride 20 MEQ TAB PO SCH ×2 (10:11→16:49)
[2017-05-22] MEDS: Famotidine 20 MG TAB PO SCH ×2 (10:12→20:34)
[2017-05-22] MEDS: Docusate 100 MG CAP PO SCH ×2 (10:12→20:34)
[2017-05-22] MEDS: Enoxaparin Sodium 60 MG/0.6 ML SYRINGE SC SCH (10:12)
[2017-05-22] MEDS: Ondansetron HCl/PF 4 MG/2 ML Vial IVP PRN (10:13)
[2017-05-22] MEDS: Vancomycin HCl 500 MG in Sodium Chloride 0.9% 100 ML IVPB SCH (12:30)
[2017-05-22] MEDS: Warfarin Sodium 5 MG TAB PO SCH (16:50)
[2017-05-22] MEDS ORDERED: Enoxaparin Sodium 60 MG/0.6 ML SYRINGE SC SCH (21:00)
[2017-05-23 04:40] LABS: INR-International Normal Ratio 2.6
[2017-05-23 04:41] LABS: PTT 93.7 SEC (22.9-36.1)
[2017-05-23 04:51] LABS: Anion Gap 9 mmol/L (10-20); BUN (Urea Nitrogen) 9 mg/dL (9.8-20.1); Calc. Creatinine Clearance 115 mL/min (70-130); Calcium 7.2 mg/dL (7.8-10.44); Carbon Dioxide 17 mmol/L (22-29); Chloride 114 mmol/L (98-107); Estimated GFR-MDRD Greater than 90; Glucose 80 mg/dL (70-105); Potassium 3.3 mmol/L (3.5-5.1); Sodium 137 mmol/L (136-145)
[2017-05-23] MEDS: Famotidine 20 MG TAB PO SCH ×2 (09:28→20:20)
[2017-05-23] MEDS: Docusate 100 MG CAP PO SCH ×2 (09:29→20:20)
[2017-05-23] MEDS: Ondansetron HCl/PF 4 MG/2 ML Vial IVP PRN (10:54)
[2017-05-23] MEDS: Vancomycin HCl 500 MG in Sodium Chloride 0.9% 100 ML IVPB SCH (11:45)
[2017-05-23] MEDS ORDERED: Morphine 4 MG/ML VIAL SLOW IVP PRN ×2 (13:51)
[2017-05-23] MEDS: Warfarin Sodium 5 MG TAB PO SCH (17:09)
--- NOTE | 2017-05-23 18:13 | PDOC.PN ---
- Subjective Encounter Start Date: 05/23/17 Encounter Start Time: 18:12 Subjective: Seen and examined no new complaint - Objective Resuscitation Status: Resuscitation Status FULL:Full Resuscitation Vital Signs & Weight: Vital Signs (12 hours) Temp Pulse Resp BP Pulse Ox 05/23/17 08:00 98.1 F 80 16 05/23/17 07:57 98.1 F 80 16 139/88 98 Weight Admit Weight 132 lb Weight 132 lb I&O: 05/22/17 05/23/17 05/24/17 06:59 06:59 06:59 Intake Total 50 60 Output Total 230 605 200 Balance -180 -545 -200 Result Diagrams: 05/22/17 04:01 05/23/17 03:37 Phys Exam - Physical Examination HEENT: PERRLA, moist MMs, sclera anicteric, TM's clear Neck: no nodes, no JVD, supple, full ROM Respiratory: no wheezing, no rales, no rhonchi, clear to auscultation bilateral Cardiovascular: RRR, no significant murmur, no rub Gastrointestinal: soft, non-tender, no distention Musculoskeletal: no edema Dx/Plan (1) Sepsis Code(s): A41.9 - SEPSIS, UNSPECIFIED ORGANISM Status: Acute Qualifiers: Sepsis type: Pseudomonas Qualified Code(s): A41.52 - Sepsis due to Pseudomonas (2) UTI (urinary tract infection) Status: Acute Qualifiers: Urinary tract infection type: catheter-associated UTI Indwelling urinary catheter type: cystostomy catheter (3) Anemia of chronic disease Code(s): D63.8 - ANEMIA IN OTHER CHRONIC DISEASES CLASSIFIED ELSEWHERE Status : Acute Comment: Improved s/p transfusion, no active bleeding (4) Sacral decubitus ulcer, stage IV Code(s): L89.154 - PRESSURE ULCER OF SACRAL REGION, STAGE 4 Status: Acute Comment: s/p I & d, now with wound vac, evidence progressive osteomyelitis on CT (5) FTT (failure to thrive) in adult Status: Chronic (6) Metabolic acidosis Code(s): E87.2 - ACIDOSIS Status: Acute (7) S/P insertion of IVC (inferior vena caval) filter Status: Acute (8) Diastolic CHF Code(s): I50.30 - UNSPECIFIED DIASTOLIC (CONGESTIVE) HEART FAILURE Status: Chronic Qualifiers: Congestive heart failure chronicity: chronic Qualified Code(s): I50.32 - Chronic diastolic (congestive) heart failure Comment: Compensated (9) H/O colostomy Code(s): Z98.890 - OTHER SPECIFIED POSTPROCEDURAL STATES Status: Chronic (10) H/O deep venous thrombosis Code(s): Z86.718 - PERSONAL HISTORY OF OTHER VENOUS THROMBOSIS AND EMBOLISM Status: Chronic Comment: BLE DVT last imaged 05/12/17, cardiovascular surgery to do IVC filter this afternoon (11) Hypokalemia Code(s): E87.6 - HYPOKALEMIA Status: Acute (12) Acidosis, metabolic Code(s): E87.2 - ACIDOSIS Status: Acute - Plan PT/OT Awaiting placement -: Repeat H/h eval and ? possible transfusion * .
[2017-05-23 19:01] LABS: Hemoglobin 8.1 g/dL (12.0-16.0)
--- NOTE | 2017-05-23 19:33 | EKG ---
Test Reason : Blood Pressure : / mmHG Vent. Rate : 102 BPM Atrial Rate : 102 BPM P-R Int : 120 ms QRS Dur : 088 ms QT Int : 356 ms P-R-T Axes : 062 059 252 degrees QTc Int : 463 ms Sinus tachycardia Nonspecific T wave abnormality Abnormal ECG When compared with ECG of 26-MAR-2017 09:18, OR interval has decreased Criteria for Septal infarct are no longer Present ST no longer depressed in Lateral leads Confirmed by DAVID GARCIA (2) on 05/23/2017 7:33:22 PM Referred By: [facility] Confirmed By:DAVID GARCIA
[2017-05-24 05:34] LABS: Hemoglobin 6.4 g/dL (12.0-16.0)
[2017-05-24 05:35] LABS: Platelet Count 180 thou/uL (130-400)
[2017-05-24 05:50] LABS: Calc. Creatinine Clearance 103 mL/min (70-130); Estimated GFR-MDRD Greater than 90
[2017-05-24 05:51] LABS: INR-International Normal Ratio 2.5; PTT 60.3 SEC (22.9-36.1); Prothrombin Time 28.2 SEC (12.0-14.7)
[2017-05-24] MEDS: Docusate 100 MG CAP PO SCH ×2 (09:01→20:33)
[2017-05-24] MEDS: Famotidine 20 MG TAB PO SCH ×2 (09:01→20:33)
[2017-05-24] MEDS ORDERED: Morphine 2 mg/2ml in 0.9% NaCl PF SYRINGE IVP PRN (10:45)
[2017-05-24] MEDS: Morphine 4 MG/ML Carpuject SLOW IVP PRN ×2 (10:55→21:15)
[2017-05-24 11:41] LABS: Vancomycin, Trough 20.9 ug/mL
[2017-05-24] MEDS: Vancomycin HCl 500 MG in Sodium Chloride 0.9% 100 ML IVPB SCH (13:13)
--- NOTE | 2017-05-24 16:52 | PDOC.PN ---
- Subjective Encounter Start Date: 05/24/17 Encounter Start Time: 16:50 Subjective: Seen and examined condition is still same - Objective Resuscitation Status: Resuscitation Status FULL:Full Resuscitation Vital Signs & Weight: Vital Signs (12 hours) Temp Pulse Resp BP 05/24/17 08:05 97.9 F 86 16 160/94 H 05/24/17 08:00 97.9 F 86 16 Weight Admit Weight 132 lb Weight 132 lb I&O: 05/23/17 05/24/17 05/25/17 06:59 06:59 06:59 Intake Total 60 1040 Output Total 605 350 Balance -545 690 Result Diagrams: 05/24/17 08:12 05/24/17 04:41 Phys Exam - Physical Examination Constitutional: NAD HEENT: PERRLA, moist MMs, sclera anicteric, TM's clear Neck: no nodes, no JVD, supple, full ROM Respiratory: no wheezing, no rales, no rhonchi, clear to auscultation bilateral Cardiovascular: RRR, no significant murmur, no rub Dx/Plan (1) Sepsis Code(s): A41.9 - SEPSIS, UNSPECIFIED ORGANISM Status: Acute Qualifiers: Sepsis type: Pseudomonas Qualified Code(s): A41.52 - Sepsis due to Pseudomonas (2) UTI (urinary tract infection) Status: Acute Qualifiers: Urinary tract infection type: catheter-associated UTI Indwelling urinary catheter type: cystostomy catheter (3) Anemia of chronic disease Code(s): D63.8 - ANEMIA IN OTHER CHRONIC DISEASES CLASSIFIED ELSEWHERE Status : Acute Comment: Improved s/p transfusion, no active bleeding (4) Sacral decubitus ulcer, stage IV Code(s): L89.154 - PRESSURE ULCER OF SACRAL REGION, STAGE 4 Status: Acute Comment: s/p I & d, now with wound vac, evidence progressive osteomyelitis on CT (5) FTT (failure to thrive) in adult Status: Chronic (6) Metabolic acidosis Code(s): E87.2 - ACIDOSIS Status: Acute (7) S/P insertion of IVC (inferior vena caval) filter Status: Acute (8) Diastolic CHF Code(s): I50.30 - UNSPECIFIED DIASTOLIC (CONGESTIVE) HEART FAILURE Status: Chronic Qualifiers: Congestive heart failure chronicity: chronic Qualified Code(s): I50.32 - Chronic diastolic (congestive) heart failure Comment: Compensated (9) H/O colostomy Code(s): Z98.890 - OTHER SPECIFIED POSTPROCEDURAL STATES Status: Chronic (10) H/O deep venous thrombosis Code(s): Z86.718 - PERSONAL HISTORY OF OTHER VENOUS THROMBOSIS AND EMBOLISM Status: Chronic Comment: BLE DVT last imaged 05/12/17, cardiovascular surgery to do IVC filter this afternoon (11) Hypokalemia Code(s): E87.6 - HYPOKALEMIA Status: Acute (12) Acidosis, metabolic Code(s): E87.2 - ACIDOSIS Status: Acute - Plan frey catheter, PT/OT, renal social worker Monitor the hemoglobin closely and transfuse on prn basis -: patient currently asymptomatic -: Dispo challenge--Casemanager following * .
[2017-05-24] MEDS: Warfarin Sodium 5 MG TAB PO SCH (17:09)
[2017-05-25 06:32] LABS: INR-International Normal Ratio 2.4; Prothrombin Time 27.1 SEC (12.0-14.7)
[2017-05-25 06:33] LABS: PTT 72.8 SEC (22.9-36.1)
[2017-05-25] MEDS: Famotidine 20 MG TAB PO SCH ×2 (08:43→20:41)
[2017-05-25] MEDS: Docusate 100 MG CAP PO SCH ×2 (08:43→20:41)
[2017-05-25 11:39] LABS: Vancomycin, Trough 21.3 ug/mL
--- NOTE | 2017-05-25 11:49 | PDOC.PN ---
- Subjective Encounter Start Date: 05/25/17 Encounter Start Time: 11:47 Subjective: seen nand examined no new complaint - Objective Resuscitation Status: Resuscitation Status FULL:Full Resuscitation Vital Signs & Weight: Vital Signs (12 hours) Temp Pulse Resp BP BP Pulse Ox 05/25/17 11:27 98 137/84 05/25/17 08:51 154/98 H 05/25/17 08:00 98.1 F 92 16 99 05/25/17 07:36 98.1 F 92 16 171/98 H 99 Weight Admit Weight 132 lb Weight 132 lb I&O: 05/24/17 05/25/17 05/26/17 06:59 06:59 06:59 Intake Total 1040 920 Output Total 350 350 Balance 690 570 Result Diagrams: 05/24/17 08:12 05/24/17 04:41 Phys Exam - Physical Examination Constitutional: NAD HEENT: PERRLA, moist MMs, sclera anicteric, TM's clear Neck: no nodes, no JVD, supple, full ROM Respiratory: no wheezing, no rales, no rhonchi Cardiovascular: RRR, no significant murmur, no rub Gastrointestinal: soft, non-tender, no distention, positive bowel sounds Musculoskeletal: no edema, pulses present Dx/Plan (1) Sepsis Code(s): A41.9 - SEPSIS, UNSPECIFIED ORGANISM Status: Acute Qualifiers: Sepsis type: Pseudomonas Qualified Code(s): A41.52 - Sepsis due to Pseudomonas (2) UTI (urinary tract infection) Status: Acute Qualifiers: Urinary tract infection type: catheter-associated UTI Indwelling urinary catheter type: cystostomy catheter (3) Anemia of chronic disease Code(s): D63.8 - ANEMIA IN OTHER CHRONIC DISEASES CLASSIFIED ELSEWHERE Status : Acute Comment: Improved s/p transfusion, no active bleeding (4) Sacral decubitus ulcer, stage IV Code(s): L89.154 - PRESSURE ULCER OF SACRAL REGION, STAGE 4 Status: Acute Comment: s/p I & d, now with wound vac, evidence progressive osteomyelitis on CT (5) FTT (failure to thrive) in adult Status: Chronic (6) Metabolic acidosis Code(s): E87.2 - ACIDOSIS Status: Acute (7) S/P insertion of IVC (inferior vena caval) filter Status: Acute (8) Diastolic CHF Code(s): I50.30 - UNSPECIFIED DIASTOLIC (CONGESTIVE) HEART FAILURE Status: Chronic Qualifiers: Congestive heart failure chronicity: chronic Qualified Code(s): I50.32 - Chronic diastolic (congestive) heart failure Comment: Compensated (9) H/O colostomy Code(s): Z98.890 - OTHER SPECIFIED POSTPROCEDURAL STATES Status: Chronic (10) H/O deep venous thrombosis Code(s): Z86.718 - PERSONAL HISTORY OF OTHER VENOUS THROMBOSIS AND EMBOLISM Status: Chronic Comment: BLE DVT last imaged 05/12/17, cardiovascular surgery to do IVC filter this afternoon (11) Hypokalemia Code(s): E87.6 - HYPOKALEMIA Status: Acute (12) Acidosis, metabolic Code(s): E87.2 - ACIDOSIS Status: Acute - Plan continue antibiotics, PT/OT, social services specialist, respiratory therapy Awaiting placement -: Monitor hemoglobin and transfuse on prn basis * .
[2017-05-25] MEDS: Vancomycin HCl 750 MG in Sodium Chloride 0.9% 250 ML 250 ML IVPB SCH (17:06)
[2017-05-25] MEDS: Warfarin Sodium 5 MG TAB PO SCH (19:08)
[2017-05-26 06:40] LABS: Platelet Count 180 thou/uL (130-400)
[2017-05-26 06:45] LABS: INR-International Normal Ratio 2.5; Prothrombin Time 27.7 SEC (12.0-14.7)
[2017-05-26 06:46] LABS: PTT 66.9 SEC (22.9-36.1)
[2017-05-26 06:49] LABS: Calc. Creatinine Clearance 96 mL/min (70-130); Estimated GFR-MDRD Greater than 90
[2017-05-26 06:59] LABS: Hemoglobin 5.5 g/dL (12.0-16.0)
--- NOTE | 2017-05-26 07:48 | PDOC.PN ---
- Subjective Encounter Start Date: 05/26/17 Encounter Start Time: 07:46 Subjective: Seen and examined --sever anemia - Objective Resuscitation Status: Resuscitation Status FULL:Full Resuscitation Vital Signs & Weight: Vital Signs (12 hours) Temp Pulse Resp BP Pulse Ox 05/25/17 20:00 98.1 F 95 20 160/87 H 94 L Weight Admit Weight 132 lb Weight 132 lb I&O: 05/25/17 05/26/17 05/27/17 06:59 06:59 06:59 Intake Total 920 120 Output Total 350 450 Balance 570 -330 Result Diagrams: 05/26/17 06:50 05/26/17 06:26 Phys Exam - Physical Examination Constitutional: NAD HEENT: PERRLA, moist MMs, sclera anicteric, oral pharynx no lesions Neck: no nodes, no JVD, supple, full ROM Respiratory: no wheezing, no rales, no rhonchi, clear to auscultation bilateral Cardiovascular: RRR, no significant murmur, no rub Gastrointestinal: soft, non-tender, no distention, positive bowel sounds Dx/Plan (1) Sepsis Code(s): A41.9 - SEPSIS, UNSPECIFIED ORGANISM Status: Acute Qualifiers: Sepsis type: Pseudomonas Qualified Code(s): A41.52 - Sepsis due to Pseudomonas (2) UTI (urinary tract infection) Status: Acute Qualifiers: Urinary tract infection type: catheter-associated UTI Indwelling urinary catheter type: cystostomy catheter (3) Anemia of chronic disease Code(s): D63.8 - ANEMIA IN OTHER CHRONIC DISEASES CLASSIFIED ELSEWHERE Status : Acute (4) Sacral decubitus ulcer, stage IV Code(s): L89.154 - PRESSURE ULCER OF SACRAL REGION, STAGE 4 Status: Acute Comment: s/p I & d, now with wound vac, evidence progressive osteomyelitis on CT (5) FTT (failure to thrive) in adult Status: Chronic (6) Metabolic acidosis Code(s): E87.2 - ACIDOSIS Status: Acute (7) S/P insertion of IVC (inferior vena caval) filter Status: Acute (8) Diastolic CHF Code(s): I50.30 - UNSPECIFIED DIASTOLIC (CONGESTIVE) HEART FAILURE Status: Chronic Qualifiers: Congestive heart failure chronicity: chronic Qualified Code(s): I50.32 - Chronic diastolic (congestive) heart failure Comment: Compensated (9) H/O colostomy Code(s): Z98.890 - OTHER SPECIFIED POSTPROCEDURAL STATES Status: Chronic (10) H/O deep venous thrombosis Code(s): Z86.718 - PERSONAL HISTORY OF OTHER VENOUS THROMBOSIS AND EMBOLISM Status: Chronic Comment: BLE DVT last imaged 05/12/17, cardiovascular surgery to do IVC filter this afternoon (11) Hypokalemia Code(s): E87.6 - HYPOKALEMIA Status: Acute (12) Acidosis, metabolic Code(s): E87.2 - ACIDOSIS Status: Acute - Plan plan discussed w/ family, PT/OT, protective services social worker Transfuse 2 units of Prbc -: D/c coumadin -: monitor hemoglobin closely * .
[2017-05-26] MEDS: Docusate 100 MG CAP PO SCH ×2 (08:16→21:20)
[2017-05-26] MEDS: Famotidine 20 MG TAB PO SCH ×2 (08:16→21:20)
[2017-05-27] MEDS: Vancomycin HCl 750 MG in Sodium Chloride 0.9% 250 ML 250 ML IVPB SCH (05:00)
[2017-05-27 06:52] LABS: Hemoglobin 9.5 g/dL (12.0-16.0); Platelet Count 172 thou/uL (130-400)
[2017-05-27 06:59] LABS: PTT 54.5 SEC (22.9-36.1); Prothrombin Time 23.7 SEC (12.0-14.7)
[2017-05-27] MEDS: Docusate 100 MG CAP PO SCH ×2 (07:54→20:55)
[2017-05-27] MEDS: Famotidine 20 MG TAB PO SCH ×2 (07:54→20:55)
--- NOTE | 2017-05-27 08:38 | PDOC.PN ---
- Subjective Encounter Start Date: 05/27/17 Encounter Start Time: 09:30 Subjective: No complaints. No changes overnight. - Objective Resuscitation Status: Resuscitation Status FULL:Full Resuscitation MAR Reviewed: Yes Vital Signs & Weight: Vital Signs (12 hours) Temp Pulse Resp BP Pulse Ox 05/27/17 07:52 98.3 F 77 18 152/80 H 95 Weight Admit Weight 132 lb Weight 132 lb I&O: 05/26/17 05/27/17 05/28/17 06:59 06:59 06:59 Intake Total 120 1800 Output Total 450 450 Balance -330 1350 Result Diagrams: 05/27/17 06:35 05/26/17 06:26 Phys Exam - Physical Examination Constitutional: NAD Thin HEENT: moist MMs Respiratory: no wheezing, no rales, no rhonchi Cardiovascular: RRR, no significant murmur Gastrointestinal: soft, positive bowel sounds paralysis of LE Psychiatric: A&O x 3 Deviation from normal: mild depressed affect, baseline for patient Dx/Plan (1) Sacral decubitus ulcer, stage IV Code(s): L89.154 - PRESSURE ULCER OF SACRAL REGION, STAGE 4 Status: Acute Comment: No improvement with wound vac, changing approach as per wound care recs (2) UTI (urinary tract infection) Status: Acute Qualifiers: Urinary tract infection type: catheter-associated UTI Indwelling urinary catheter type: cystostomy catheter (3) Sepsis Code(s): A41.9 - SEPSIS, UNSPECIFIED ORGANISM Status: Acute Qualifiers: Sepsis type: Pseudomonas Qualified Code(s): A41.52 - Sepsis due to Pseudomonas (4) Metabolic acidosis Code(s): E87.2 - ACIDOSIS Status: Acute (5) Anticoagulant long-term use Code(s): Z79.01 - [facility] (CURRENT) USE OF ANTICOAGULANTS Status: Chronic Comment: INR subtherapeutic, suspect non-compliance with home regimen (6) Anemia of chronic disease Code(s): D63.8 - ANEMIA IN OTHER CHRONIC DISEASES CLASSIFIED ELSEWHERE Status : Acute Comment: severe -no visible bleeding source, s/p transfusion 05/26/17 (7) FTT (failure to thrive) in adult Status: Chronic (8) H/O deep venous thrombosis Code(s): Z86.718 - PERSONAL HISTORY OF OTHER VENOUS THROMBOSIS AND EMBOLISM Status: Chronic Comment: BLE DVT last imaged 05/12/17, s/p IVC filter, Coumadin d/c'd - Plan cont current plan of care, continue antibiotics, PT/OT awaiting placement -: wound care * . - Discharge Day Encounter end time: 09:45
[2017-05-27] MEDS: Morphine 4 MG/ML Carpuject SLOW IVP PRN (09:00)
[2017-05-28 05:45] LABS: Platelet Count 172 thou/uL (130-400)
[2017-05-28 05:52] LABS: Hemoglobin 9.6 g/dL (12.0-16.0)
[2017-05-28 05:57] LABS: INR-International Normal Ratio 2.1; PTT 52.3 SEC (22.9-36.1); Prothrombin Time 23.9 SEC (12.0-14.7)
[2017-05-28 06:11] LABS: Calc. Creatinine Clearance 96 mL/min (70-130); Estimated GFR-MDRD Greater than 90
[2017-05-28] MEDS: Docusate 100 MG CAP PO SCH ×2 (08:21→22:23)
[2017-05-28] MEDS: Famotidine 20 MG TAB PO SCH ×2 (08:21→22:23)
[2017-05-28] MEDS: Morphine 4 MG/ML Carpuject SLOW IVP PRN (10:25)
--- NOTE | 2017-05-28 13:26 | DIS ---
DATE OF ADMISSION: 05/11/2017 DATE OF DISCHARGE: 05/28/2017 DISCHARGE DISPOSITION: Home with home health care. DISCHARGE MEDICATIONS: 1. Daptomycin 400 mg daily until 06/[address] Aparicio. 2. Pepcid 20 mg b.i.d. Home health care for physical therapy, wound care as well as antibiotics will be arranged. The patient was seen and examined on the day of discharge. Denies any new complaints. No chest pain, shortness of breath, palpitations reported. INPATIENT PROCEDURES: 1. On 05/15/2017, patient underwent Port-A-Cath in the left subclavian vein by Dr. Mcneill for outpatient antibiotics. 2. On 05/16/2017, patient underwent IVC filter placement due to bilateral deep vein thrombosis with Coumadin, noncompliance. SIGNIFICANT LABORATORY DATA: Hemoglobin on the day of discharge was 9.6, lowest hemoglobin was 5.5 requiring 2 units of PRBC. Urinalysis showed greater than 50 WBCs with 4+ bacteria. Urine cultures showed pseudomonas. Blood cultures were negative. BRIEF HOSPITAL COURSE: Patient is a 56-year-old female with Guillain-Amonate syndrome, chronic sacral decubitus ulcer stage IV, history of DVT with noncompliance with Coumadin, hypertension, malnourishment and anemia, who presented to the hospital on 05/11/2017 for colostomy replacement. She was found to have abnormal vital signs with invasive urinary tract infection as well as sepsis for which she was admitted. Please refer to the history and physical dated 05/11/2017 for further details. The patient was admitted to the hospital with a diagnosis of sepsis secondary to invasive urinary tract infection. Urine culture was consistent with Pseudomonas. A PICC line could not be placed due to contractures. She underwent a Port-A-Cath placement. She will be discharged with outpatient antibiotics. The plan was to send her to snf facility; however, she declined [facility] snf facility. She is requesting to be discharged home with home health care. She is at high risk of re-admission. The patient was also found to have bilateral lower extremity DVT. Her INR on admission was 1.1. She was started on anticoagulation; however, she started dropping her H&H. She received 2 units of PRBC. Her lowest hemoglobin was 5.5. IVC filter has been placed. Coumadin has been discontinued due to noncompliance as well as severe anemia. She understands the risk of not taking Coumadin including life threatening blood clots. She will be discharged home with home healthcare. Plan of care was discussed with the patient in detail. She stated understanding. FINAL DIAGNOSES: 1. Sepsis secondary to invasive urinary tract infection as well as infected stage IV sacral ulcer. 2. Anemia secondary to chronic kidney disease. She also received 2 units of PRBC this admission. 3. Bilateral lower extremity deep vein thrombosis status post IVC filter this admission. 4. Severe protein energy malnutrition. 5. Guillain-Amonate syndrome with quadriparesis/quadriplegia. 6. Systemic lupus erythematosus. 7. Electrolyte abnormality, hypokalemia and hyponatremia. 8. Hypertension. 9. Medication noncompliance 10. Metabolic acidosis. Total time coordinating the discharge including counseling was 37 minutes. MTDD
[2017-05-28] MEDS: Vancomycin HCl 750 MG in Sodium Chloride 0.9% 250 ML 250 ML IVPB SCH ×2 (15:18→16:04)
[2017-05-29 05:47] LABS: INR-International Normal Ratio 1.9; Prothrombin Time 21.9 SEC (12.0-14.7)
[2017-05-29 05:48] LABS: PTT 49.6 SEC (22.9-36.1)
[2017-05-29 07:40] VITALS: TEMP 97
[2017-05-29] MEDS: Docusate 100 MG CAP PO SCH (08:34)
[2017-05-29] MEDS: Famotidine 20 MG TAB PO SCH (08:34)
[2017-05-29] MEDS: Morphine 4 MG/ML Carpuject SLOW IVP PRN (09:51)
[2017-05-29 11:29] VITALS: BP 168/97
--- NOTE | 2017-05-29 14:05 | DIS ---
DATE OF DISCHARGE: 05/29/2017 Please refer to the discharge summary dictated by me on 05/28/2017 for details. BRIEF HOSPITAL COURSE: The patient was unable to leave on 05/28/2017 due to lack of outpatient antib iotic setup. The antibiotics have been set up today. The patient was seen and examined today. No c hanges in medications were made. She will continue IV daptomycin until 06/09/2017. She has declined retirement facility and is requesting to be discharged home. For diagnosis, please refer to my discharge summary from yesterday.
[2017-05-29] MEDS ORDERED: DAPTOmycin 500 MG VIAL IVPB SCH (14:30)
[2017-05-29] MEDS ORDERED: DAPTOmycin 500 MG in Sodium Chloride 0.9% 100 ML IVPB SCH (15:00)
== END 2017-05-29 17:33 | disposition home health service (06) | DRG 853 ==
LOC: ERS 13:09 → T4-A 17:18
PROVIDERS: ADMIT Internal Medicine; ATTEND Internal Medicine
PROC: 05H633Z Insertion of Infusion Device into Left Subclavian Vein, Percutaneous Approach (ICD-10-PCS; 2017-05-15)
PROC: 06H03DZ Insertion of Intraluminal Device into Inferior Vena Cava, Percutaneous Approach (ICD-10-PCS; principal; 2017-05-16)
PROC: 30233N1 Transfusion of Nonautologous Red Blood Cells into Peripheral Vein, Percutaneous Approach (ICD-10-PCS; 2017-05-26)
DX: A41.9 Sepsis, unspecified organism (principal); G82.50 Quadriplegia, unspecified; E43 Unspecified severe protein-calorie malnutrition; G61.0 Guillain-Barre syndrome; J90 Pleural effusion, not elsewhere classified; I82.403 Acute embolism and thrombosis of unspecified deep veins of lower extremity, bilateral; E87.2 Acidosis; L89.154 Pressure ulcer of sacral region, stage 4; N99.511 Cystostomy infection; E87.1 Hypo-osmolality and hyponatremia; Z68.43 Body mass index [BMI] 50.0-59.9, adult; M46.28 Osteomyelitis of vertebra, sacral and sacrococcygeal region; I13.0 Hypertensive heart and chronic kidney disease with heart failure and stage 1 through stage 4 chronic kidney disease, or unspecified chronic kidney disease; I50.32 Chronic diastolic (congestive) heart failure; N39.0 Urinary tract infection, site not specified; M32.9 Systemic lupus erythematosus, unspecified; G62.9 Polyneuropathy, unspecified; E86.0 Dehydration; R62.7 Adult failure to thrive; D72.825 Bandemia; D63.1 Anemia in chronic kidney disease; N18.9 Chronic kidney disease, unspecified; E87.6 Hypokalemia; B96.5 Pseudomonas (aeruginosa) (mallei) (pseudomallei) as the cause of diseases classified elsewhere; Z79.01 Long term (current) use of anticoagulants; Z91.19 Patient's noncompliance with other medical treatment and regimen; Z86.718 Personal history of other venous thrombosis and embolism; Z82.49 Family history of ischemic heart disease and other diseases of the circulatory system; Y84.6 Urinary catheterization as the cause of abnormal reaction of the patient, or of later complication, without mention of misadventure at the time of the procedure
CPT/HCPCS: 36415; 36416; 36430; 37191; 71045; 74022; 74176; 76942; 80048; 80076; 80202; 81003; 81015; 82533; 82565; 83605; 83690; 85014; 85018; 85025; 85049; 85610; 85730; 86850; 86900; 86901; 86922; 87040; 87077; 87086; 87186; 93005; 93010; 93970; 96361; 96374; 99152; 99153; A4216; C1769; C1788; J0696; J0878; J1642; J1644; J1650; J2001; J2185; J2250; J2270; J2405; J2704; J3010; J3370; J7050; P9016

== ENCOUNTER 2017-06-09 16:03 | Inpatient (IN) | payer OTHER ==
[~2017-06-09 16:03] MED LIST: ISOVUE-370 76%-LOCM 1 ML ONE
[2017-06-09] MEDS ORDERED: Piperacillin/Tazobactam 4.5 GM in Sodium Chloride 0.9% 100 ML IVPB SCH (17:00)
[2017-06-09] MEDS ORDERED: Vancomycin HCl 1.25 GM in Sodium Chloride 0.9% 250 ML 250 ML IVPB SCH (17:00)
[2017-06-09 17:09] LABS: Hemoglobin 10.9 g/dL (12.0-16.0); Mean Corpuscular HGB CONC 32.5 g/dL (32.0-36.0); Mean Corpuscular Hemoglobin 28.7 pg (27.0-31.0); Mean Corpuscular Volume 88.3 fl (81.0-99.0); Mean Platelet Volume 6.2 fL (7.4-10.4); Platelet Count 226 thou/uL (130-400); RBC Distribution Width 13.4 % (11.5-14.5); White Blood Cell (WBC) Count 4.2 thou/uL (4.8-10.8)
[2017-06-09 17:14] LABS: INR-International Normal Ratio 1.6; Prothrombin Time 19.1 SEC (12.0-14.7)
--- NOTE | 2017-06-09 17:23 | RAD ---
1 VIEW CHEST: Date: 06/09/17 COMPARISON: 05/15/17. HISTORY: Dyspnea. FINDINGS: Stable left-sided MediPort catheter. There is atherosclerosis of the aorta. Normal cardiac silhouette . Pulmonary vessels and hilum are normal. Bilateral pleural effusions. Adjacent parenchymal changes a re suspected. No pneumothorax. IMPRESSION: Bibasilar pleural effusions which have developed/progressed since the most previous comparison. POS: [facility]
[2017-06-09 17:27] LABS: Band 43 % (5-11); Burr Cells SLIGHT = 2-5 cells (100X) (0-1/hpf); Dohle Bodies SLIGHT; Lymphocytes 7 % (21-51); MDiff Complete? YES; Metamyelocyte 8 % (0-0); Monocytes 2 % (0-10); Neutrophil 39 % (42-75); Ovalocytes SLIGHT = 2-5 cells (100X) (0-1/hpf); PLT Morphology Comment Appears Adequate; Polychromasia SLIGHT = 2-3 cells (100X) (0-2/hpf); Reactive Lymphocytes 1 % (0-10); Schistocytes SLIGHT = 2-5 cells (100X) (0-1/hpf); Toxic Granulation SLIGHT; Vacuoles SLIGHT
[2017-06-09 17:28] LABS: ALT (SGPT) 42 U/L (8-55); AST (SGOT) 94 U/L (5-34); Alkaline Phosphatase 92 U/L (40-150); Anion Gap 14 mmol/L (10-20); BUN (Urea Nitrogen) 15 mg/dL (9.8-20.1); Calc. Creatinine Clearance 0 mL/min (70-130); Calcium 7.4 mg/dL (7.8-10.44); Carbon Dioxide 19 mmol/L (22-29); Chloride 102 mmol/L (98-107); Estimated GFR-MDRD Greater than 90; Globulin 3.1 g/dL (2.4-3.5); Glucose 83 mg/dL (70-105); Protein, Total 5.1 g/dL (6.0-8.3); Sodium 133 mmol/L (136-145)
[2017-06-09 17:33] LABS: CKMB 3.7 ng/mL (0-6.6); Troponin I 0.165 ng/mL (< 0.028)
[2017-06-09] MEDS ORDERED: Acetaminophen 500 MG TAB ONE (17:35)
[2017-06-09 17:39] LABS: Potassium 2.4 mmol/L (3.5-5.1)
[2017-06-09] MEDS ORDERED: Ondansetron HCl/PF 4 MG/2 ML Vial ONE (17:44)
[2017-06-09] MEDS ORDERED: Magnesium Sulfate 2 GM/100 ML BAG ONE (17:58)
--- NOTE | 2017-06-09 17:59 | CT ---
NONCONTRAST HEAD CT: Date: 06/09/17 HISTORY: Altered mental status. Patient is paralyzed from lupus. COMPARISON: 09/29/16. TECHNIQUE: A noncontrast head CT is performed from the skull base to the skull vertex. FINDINGS: No parenchymal hemorrhage or extra-axial hematoma. No midline shift. Basilar cisterns are patent. Bra in volume is age-appropriate. Cortical townsend-white matter differentiation is preserved. Ventricles and sulci are patent and symmetric. Calvarium is intact. Adequate aeration of the sinuses and mastoid ai r cells. IMPRESSION: No acute intracranial process. POS: [facility]
[2017-06-09 18:35] LABS: Bilirubin Small (Negative); Blood, Urine Large (Negative); Clarity TURBID (Clear); Glucose, Urine (Dipstick) Negative (Negative); Leukocyte Moderate (Negative); Nitrite Positive (Negative); Protein, Urine (Dipstick) 300 mg/dL (Neg-Trace); Specific Gravity, Urine 1.021 (1.002-1.036); Urobilinogen 0.2 mg/dL (0.2-1.0)
[2017-06-09 18:36] LABS: Bacteria/HPF 4+ HPF (None Seen); Squamous Epithelial 0-3 HPF (0-3)
[2017-06-09 18:39] LABS: Pathc Cast-AUWi Flag 7.85 (0-2.49); Yeast-AUWi Flag 260.8 (0-25.0)
[2017-06-09 18:48] LABS: Hyaline Casts/LPF 0-3 HYALINE CAST LPF (0-3 Hyaline); Yeast-All Forms 1+ HPF (None Seen)
--- NOTE | 2017-06-09 19:27 | CT ---
ABDOMEN CT WITH CONTRAST PELVIC CT WITH CONTRAST: Date: 06/09/17 HISTORY: Abdominal pain. Patient has been paralyzed due to lupus. Possible urinary tract infection. COMPARISON: 07/11/15. TECHNIQUE: Abdomen and pelvic CT are performed with IV contrast. Enteric contrast was not administered. Coronal reformatted images are submitted for interpretation. FINDINGS: ABDOMEN CT: Moderate bilateral effusions with adjacent lung parenchymal consolidation due to atelectasis or pneum onia. Heart size is upper normal. There is a small amount of pericardial fluid. Descending thoracic a yoel and abdominal aorta have a normal caliber. No periaortic fat stranding. Symmetric attenuation of psoas muscles. Intra and extrahepatic portal vein is patent. Gallbladder is unremarkable. Liver, spleen, pancreas, and adrenal glands have appropriate enhancement. No gastrohepatic, retrocrural, or periportal lymphadenopathy. Nonspecific enlarged left periaortic lymph node measuring 1.4 x 0.6 cm. Note is made of an IVC filter. There is symmetric enhancement of the kidneys. Bilaterally, no definite obstructive uropathy. There is evidence of free fluid in the abdomen. No mass, lymphadenopathy, or free air. There is a div erting colostomy in the left lower quadrant. Limited evaluation of the alimentary canal due to lack of oral contrast. No evidence of bowel obstruc tion. Ileocecal junction is normal. Normal caliber appendix. As stated above, there appears to be a left-sided diverting colostomy. Nevertheless, there appears to be some fecal material in the residual Isai's pouch. A suture chain is identified. PELVIC CT: Nonspecific hyperdensity involving the anterior left uterus measuring 2.6 x 1.5 cm. The possibility o f a hemorrhagic uterine leiomyoma is raised. Adnexal structures are unremarkable. There is a small am ount of free flui8d in the pelvis. Suprapubic catheter is identified. There appears to be fluid in th e urinary bladder. No lytic or blastic lesions in the osseous structures. IMPRESSION: 1. Bilateral pleural effusions with adjacent consolidation due to atelectasis or pneumonia. 2. 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 3. No evidence of bowel obstruction. 4. Nonspecific small amounts of ascites in the abdomen. POS: [facility]
[2017-06-09] MEDS ORDERED: Potassium Chloride 20 MEQ/100 ML PREMIX BAG ONE (20:46)
[2017-06-09] MEDS ORDERED: Milk Of Magnesia 30 ML UDCUP PO PRN (21:38)
[2017-06-09] MEDS ORDERED: Sodium Chloride 0.65% Nasal 44 ML BOT EA NARE PRN (21:38)
[2017-06-09] MEDS ORDERED: Mag-Al 1200 mg/1200 mg/30 ML UDCUP PO PRN (21:38)
[2017-06-09] MEDS ORDERED: Diabetic Tussin 200 MG/10 ML UDCUP PO PRN (21:38)
[2017-06-09] MEDS ORDERED: Chloraseptic Spray 180 ml Bottle PO PRN (21:38)
[2017-06-09] MEDS ORDERED: Ondansetron ODT 4 MG TAB PO PRN (21:38)
[2017-06-09] MEDS ORDERED: Acetaminophen 325 MG TAB PO PRN (21:38)
[2017-06-09] MEDS ORDERED: Loperamide HCl 2 MG CAP PO PRN (21:38)
[2017-06-09] MEDS ORDERED: Senokot 8.6 MG TAB PO PRN (21:38)
[2017-06-09] MEDS ORDERED: HYDROcodone/Acetaminophen 5/325 mg Tablet PO PRN (21:38)
[2017-06-09] MEDS ORDERED: hydrALAZINE 20 MG/ML VIAL SLOW IVP PRN (21:38)
[2017-06-09] MEDS ORDERED: VANCOMYCIN/ ZOSYN IVPB PRN (21:38)
[2017-06-09] MEDS ORDERED: Eucerin (Mineral Oil/Petrolatum,White) 30 gm Jar TOP PRN (21:38)
[2017-06-09] MEDS ORDERED: Loratadine 10 MG TAB PO PRN (21:38)
[2017-06-09] MEDS ORDERED: Zolpidem Tartrate 5 MG TAB PO PRN (21:38)
[2017-06-09] MEDS ORDERED: Artificial Tears 18 DROP/0.9 ML EA EYE PRN (21:38)
[2017-06-09] MEDS ORDERED: Ondansetron HCl/PF 4 MG/2 ML Vial IVP PRN (21:38)
[2017-06-09] MEDS ORDERED: Magnesium Sulfate 4 GM in Sodium Chloride 0.9% 250 ML 250 ML IVPB SCH (22:00)
[2017-06-09] MEDS ORDERED: Potassium Chloride 20 MEQ TAB PO SCH (22:00)
[2017-06-09] MEDS ORDERED: HYDROcodone/Acetaminophen 5/325 mg Tablet ONE (23:18)
--- NOTE | 2017-06-10 01:10 | HP ---
DATE OF SERVICE: 06/09/2017 PRIMARY CARE PHYSICIAN: Lidia Hansen M.D. REASON FOR ADMISSION: Acute encephalopathy, sepsis with acute organ dysfunction , abnormal electrolytes, anasarca, and urinary tract infection. HISTORY OF PRESENT ILLNESS: A 56-year-old female who has lately multiple admissions in our hospital. She is an unfortunate female who has quadriplegia. She has Guillain-[place] syndrome and she has lupus related kidney problem and she is suffering from bed bound status. She has neurogenic bladder and she has chronic suprapubic catheter. She also has colostomy. Her most recent admission was in our hospital on 05/11/2017 and she was discharged on 2017. At that time, the patient was discharged with daptomycin. The patient has finished antibiotic therapy today. The patient was brought to the ER today with altered mental status. She was having fever. Her maximum temperature was 102.9. She was not able to provide any history. The patient was more weak. In the emergency room, other than fever she was tachycardic, but her blood pressure was stable. In the emergency room, patient was found with bandemia, coagulopathy, hypokalemia, hypomagnesemia, elevated troponin, which is chronic and elevated BNP, which was new this time. Her urinalysis was suggestive of UTI. Aldrich culture was obtained and subsequently patient was given broad spectrum antibiotic therapy with vancomycin and Zosyn. The patient also received 60 mEq potassium in the emergency room including 20 IV and 40 p.o. The patient has also received magnesium sulfate, Tylenol 1 gram and IV fluid. REVIEW OF SYSTEMS: Unfortunately because of her altered mental status, we are not able to obtain any review of systems from her and unreliable. She is awake. She does not participate with review of systems because of her cognitive status. PAST MEDICAL HISTORY: History of lupus. She is not on any specific treatment, history of Guillain-Reno syndrome, history of quadriplegia, neurogenic bladder with suprapubic catheter, hypertension, history of DVT required IVC filter, physical deconditioning and bed bound status, stage 4 sacral decubitus ulcer, and severe protein calorie malnutrition. PAST SURGICAL HISTORY: The patient has history of suprapubic catheter, colostomy, and IVC filter placement. PAST PSYCHIATRIC HISTORY: Anxiety and depression. SOCIAL HISTORY: The patient is and lives at home with her . No history of tobacco, alcohol or illicit drug abuse. She is bed bound status. FAMILY HISTORY: Heart disease runs among several family members. The patient' s family lives in [place]. ALLERGIES: No known drug allergies. CURRENT HOME MEDICATIONS: Most recent discharge summary states patient is on Pepcid 20 mg twice daily and she has finished daptomycin today. EMERGENCY ROOM COURSE: The patient was given vancomycin, Zosyn, Levaquin, potassium chloride 40 p.o. and 20 IV, IV fluid 1 liter, Tylenol 1 gram, and magnesium sulfate 2 grams. Additional information on admission, the patient was tachycardic and then EKG was done, which showed atrial fibrillation with rapid ventricular response, but subsequently working second hand was showing sinus rhythm. She had CT of the abdomen and pelvis, which showed bilateral pleural effusion with atelectasis, leiomyoma, and ascites. Chest x-ray also showed similar pleural effusion. CT brain was negative for any acute intracranial process. PHYSICAL EXAMINATION: VITAL SIGNS: Blood pressure 114/71, temperature 102.9, pulse 115, respiratory rate 26, saturation 95% on room air, and weight 90.7 kilograms. GENERAL: The patient is tachycardic, hypertensive, tachypneic, chronically ill , responsive to verbal stimuli. HEENT: Head: Normocephalic, atraumatic. Eyes: Pupils round, reactive to light. Extraocular muscle intact. No nystagmus. ENT: Dry mucous membranes, no oral lesions, no pharyngeal erythema, no exudate , no thrush. NECK: No JVD, no thyromegaly, no carotid bruit. No meningeal signs of irritation. LUNGS: Bilateral air entry reduced basally, few basal rales noted. CARDIAC: S1, S2 regular, tachycardia, no murmur elicited, no gallop, no rub. ABDOMEN: The patient does have colostomy in left lower quadrant. Suprapubic catheter noted. No peritoneal signs, no guarding, no rigidity, no rebound. EXTREMITIES: Upper extremity: The patient does have bilateral upper extremity contracture. Lower extremity: The patient does have bilateral lower extremity pitting edema. NEUROLOGIC: The patient is quadriplegic. She has contracture in upper extremity. Detailed neurological examination is not possible. SKIN: No skin rash other than dry skin. PSYCHIATRIC: Flat affect. SIGNIFICANT LABORATORY DATA: 1. Initial EKG showed atrial fibrillation with rapid ventricular response, but subsequently working second hand showing sinus rhythm. CT of the abdomen and pelvis showing bilateral pleural effusion with adjacent atelectasis or pneumonia. CT brain based on my review, no acute intracranial process. Chest x -ray showing bilateral pleural effusion. 2. CBC: WBC 4.2, hemoglobin 10.9, platelet 226 with bandemia of 43%. INR 1.6. BMP: Sodium 133, potassium 2.4, chloride 102, carbon dioxide 19, BUN 15, creatinine 0.64, calcium 7.4. Lactic acid 1.7, magnesium 1.0. 3. LFT: AST 94, ALT 42, alkaline phosphatase 92, albumin 2.0. TSH 0.49, CK- MB 3.7, troponin I 0.165. BNP 1504.6. Urinalysis suggestive of urinary tract infection. ASSESSMENT AND PLAN/IMPRESSION: 1. Acute encephalopathy, most likely due to metabolic as well as sepsis related encephalopathy. CT brain is not showing any acute intracranial process and she does not have any new neurological finding. 2. Sepsis with acute organ dysfunction. Source of infection is most likely urinary tract. Underlying pneumonia cannot be entirely excluded. The patient also has encephalopathy and demand ischemia, so she meets sepsis with acute organ dysfunction criteria. 3. Urinary tract infection related with chronic suprapubic catheter, previously culture grew pseudomonas. At this point, patient is kept on vancomycin and Zosyn. Probiotics will be prescribed. Pharmacy will adjust antibiotic dose therapy. We will follow up on blood and urine culture result. 4. Abnormal electrolytes. She has hypokalemia and hypomagnesemia. The patient has received 60 mEq potassium in the emergency room and magnesium sulfate 4 grams. We will repeat labs tomorrow and replace accordingly. 5. Elevated troponin due to demand ischemia, which is chronic. We will repeat cardiac enzymes with morning labs. 6. Elevated BNP, likely related with fluid overload status. The patient's last echocardiography showed normal ejection fraction. At this point, if blood pressure permits then we will consider giving her Lasix for her pleural effusion and anasarca. 7. Anasarca. This patient has ascites, bilateral lower extremity edema, and pleural effusion. Her anasarca is related with the severe hypoalbuminemia from lupus related kidney damage. The patient will be given Lasix 20 mg IV daily. 8. Severe protein calorie malnutrition. The patient will need supplement with Joel b.i.d. and nutritional support with Ensure t.i.d. 9. Paroxysmal atrial fibrillation, currently in sinus rhythm likely precipitated by sepsis. 10. History of lupus. The patient is no longer on any specific immunosuppressive therapy at this point, because she cannot afford and she is already complicated with side effects. 11. Quadriplegia with neurogenic bladder, only patient needs supportive care. 12. Stage IV decubitus ulcer. Wound Care team will be consulted. The patient is on antibiotic therapy. 13. Anemia of chronic disease. The patient will need nutritional support, multivitamin and iron therapy. 14. Deep venous thrombosis prophylaxis. Lovenox 30 mg subcutaneously daily. 15. Gastrointestinal prophylaxis. Pepcid 20 mg p.o. b.i.d. 16. Code status: The patient is FULL CODE. The patient's is surrogate decision maker. Disposition plan based on clinical course during this admission. We will also involve palliative care before discharge. Long-term prognosis is poor and she is at high risk for recurrent admission. MARIAH
[2017-06-10] MEDS: Piperacillin/Tazobactam 3.375 GM in Sodium Chloride 0.9% 100 ML IVPB SCH ×3 (01:21→11:15)
[2017-06-10 04:06] LABS: ALT (SGPT) 38 U/L (8-55); AST (SGOT) 82 U/L (5-34); Albumin 1.8 g/dL (3.5-5.0); Alkaline Phosphatase 82 U/L (40-150); Anion Gap 13 mmol/L (10-20); BUN (Urea Nitrogen) 15 mg/dL (9.8-20.1); Calc. Creatinine Clearance 116 mL/min (70-130); Calcium 7.2 mg/dL (7.8-10.44); Carbon Dioxide 18 mmol/L (22-29); Chloride 104 mmol/L (98-107); Estimated GFR-MDRD Greater than 90; Globulin 2.8 g/dL (2.4-3.5); Glucose 79 mg/dL (70-105); Magnesium 1.9 mg/dL (1.6-2.6); Phosphorus 2.8 mg/dL (2.3-4.7); Protein, Total 4.6 g/dL (6.0-8.3); Sodium 132 mmol/L (136-145)
[2017-06-10 04:09] LABS: CKMB 6.3 ng/mL (0-6.6); Troponin I 0.115 ng/mL (< 0.028)
[2017-06-10 04:12] LABS: Potassium 2.9 mmol/L (3.5-5.1)
[2017-06-10 04:21] LABS: Band 42 % (5-11); Hemoglobin 10.1 g/dL (12.0-16.0); Lymphocytes 6 % (21-51); MDiff Complete? YES; Mean Corpuscular HGB CONC 32.7 g/dL (32.0-36.0); Mean Corpuscular Volume 88.7 fl (81.0-99.0); Mean Platelet Volume 6.9 fL (7.4-10.4); Metamyelocyte 6 % (0-0); Monocytes 4 % (0-10); Neutrophil 42 % (42-75); PLT Morphology Comment Appears Adequate; Platelet Count 190 thou/uL (130-400); RBC Distribution Width 13.5 % (11.5-14.5); Red Blood Cell (RBC) Count 3.48 mill/uL (4.20-5.40); White Blood Cell (WBC) Count 4.3 thou/uL (4.8-10.8)
[2017-06-10] MEDS ORDERED: Potassium Chloride 20 MEQ TAB PO SCH ×2 (08:00→12:00)
[2017-06-10] MEDS: Furosemide 20 MG/2 ML VIAL SLOW IVP SCH (08:21)
[2017-06-10] MEDS: Multivitamin W/ Minerals 1 TAB PO SCH (08:21)
[2017-06-10] MEDS: Saccharomyces boulardii 250 MG CAP PO SCH (08:21)
[2017-06-10] MEDS: Enoxaparin Sodium 30 MG/0.3 ML SYRINGE SC SCH (08:21)
[2017-06-10] MEDS: Ferrous Sulfate 325 MG TAB PO SCH (08:21)
[2017-06-10] MEDS: Famotidine/PF 20 mg/2ml Vial SLOW IVP SCH ×2 (08:22→23:01)
--- NOTE | 2017-06-10 11:33 | CON ---
DATE OF CONSULTATION: 06/10/2017 SERVICE: Pulmonary Medicine. REASON FOR CONSULTATION: IMCU patient. HISTORY OF PRESENT ILLNESS: Patient is a 56-year-old -[place] female with past medical history significant for lupus, deconditioning, severe protein calorie malnutrition, and neurogenic bladder status post suprapubic catheter placement, who presented to the hospital with altered mentation. She has a history of medical noncompliance. Either way, she was little confused with fever of 102.9. She was brought to the emergency department and empirically given some antibiotics. She had altered mentation on presentation. She got resuscitated with a little bit of fluid. She was subsequently tucked in the IMCU because of soft blood pressures. Overnight, her blood pressures firmed up a little bit. Her mentation cleared. She was found to have severe hypokalemia. Potassium was replaced over the evening and it is trending in the correct direction. She currently denies any shortness of breath or chest discomfort. She does not use any oxygen at home, but has returned to room air at this point. She had multiple imaging studies, which were reviewed below. PAST MEDICAL HISTORY: 1. Systemic lupus erythematosus. 2. History of DVT with noncompliance on Coumadin, status post IVC filter placement. 3. Deconditioning, severe. 4. History of Guillain-[place] syndrome. 5. Severe protein calorie malnutrition. 6. Sacral decubitus ulcer, stage IV, present on admission. PAST SURGICAL HISTORY: 1. Suprapubic catheter placement. 2. Left subclavian vein Rhed-[id number]-[id number] placement. 3. Colostomy. 4. IVC filter placement. SOCIAL HISTORY: Negative for alcohol, tobacco or illicit drug use currently. She is and lives with her . Otherwise, she has no exposure to chemicals, dust asbestos or tuberculosis. FAMILY HISTORY: Noncontributory. ALLERGIES: No known drug allergies. MEDICATIONS: List of her inpatient medications was reviewed. A couple of small updates were made. REVIEW OF SYSTEMS: General, head, ears, eyes, nose, throat, cardiovascular, respiratory, GI, , musculoskeletal, neurologic and skin is negative except as mentioned in HPI. PHYSICAL EXAMINATION: VITAL SIGNS: Afebrile, pulse 91, blood pressure 105/65, respirations 18, saturation 100% on 2 liters nasal cannula. GENERAL: The patient is awake, alert, in no apparent distress. LUNGS: Decent air entry. Anteriorly, she is clear. Posteriorly, there is decreased air entry with a little bit of crackling. HEART: Normal rate, regular. ABDOMEN: Soft, nontender, nondistended. Bowel sounds are positive. MUSCULOSKELETAL: No cyanosis or clubbing. There is diffuse 2+ pitting throughout. GENITOURINARY: Suprapubic catheter in place. LABORATORY DATA: WBC 4.3, hemoglobin 10.1, platelets are 190,000 and band count is 42% roughly stable. INR 1.6. Potassium 2.9 and trending in a good direction. Sodium 132, basic metabolic profile and liver function studies are otherwise unremarkable. Her albumin; however, is only 1.8. Troponin is 0.11 and down trending, BNP 1500, TSH is normal. Lactate is unremarkable. Urinalysis is positive for white blood cells, leukocyte esterase, and nitrites. There is a little bit of protein in the urine as well. Urine culture is growing gram negative linda. Blood culture x2 and influenza are unremarkable. IMAGIN. CT of the abdomen and pelvis demonstrates bilateral pleural effusions and adjacent atelectasis which is favored. It looks like the entirety of the right lower lobe and left lower lobe is down. 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 No evidence for bowel obstruction. Otherwise, there are some nonspecific findings. 2. CT of the brain demonstrates no acute intracranial abnormality. 3. Chest x-ray demonstrates bilateral pleural effusions without obvious consolidating lesion. Cardiomegaly is present. ASSESSMENT: 1. Acute hypoxic respiratory failure secondary to atelectasis and bilateral pleural effusions, resolving. 2. Severe sepsis. 3. Metabolic encephalopathy. 4. Non-ST elevation myocardial infarction. 5. Severe protein calorie malnutrition. 6. Deconditioning, severe. 7. Urinary tract infection secondary to gram negative linda. DISCUSSION AND PLAN: I will discontinue vancomycin. We will continue her Zosyn for the time being. We narrow antibiotics choice once sensitivities return on the gram-negative linda, it is currently growing in the urine culture. She can be transitioned out of the ICU to the telemetry unit given her marginally elevated troponin. Pulmonary Critical Care will continue to follow while she remains inhouse for the time being. We aggressively replace potassium and I will make certain to check magnesium tomorrow morning as well as repeat potassium. Dr. Bocanegra will assume care in the morning. 70 minutes have been devoted to this patient in various activities. I personally reviewed all imaging studies and laboratory data noted within this document. For at least half of this time, I was interacting with the patient at bedside or coordinating care with the care team. For the remainder of the time, I was immediately available to the patient in the hospital unit. MARIAH
--- NOTE | 2017-06-10 12:24 | PDOC.PN ---
- Subjective Encounter Start Date: 06/10/17 Encounter Start Time: 11:15 -: old records requested/rev Pt seen and examined, chart reviewed in its entirety, this is my first visit with this patient pt admitted last night for AMs, UTI. culture and UA taken from indwelling SPT that was due for a change now. afebrile since admit. at bedside, MS back to baseline. No F/C, no n/V/D/C, josi po. Josi abx without itching or rash 10 point ROS performed and neg for all systems except as above - Objective Resuscitation Status: Resuscitation Status FULL:Full Resuscitation MAR Reviewed: Yes Vital Signs & Weight: Vital Signs (12 hours) Temp Pulse Resp BP Pulse Ox 06/10/17 11:11 97.6 F 98 18 103/68 100 06/10/17 10:00 98 18 105/65 100 06/10/17 08:00 97.6 F 91 20 100/62 100 06/10/17 04:00 97.8 F 100 18 101/59 L 100 06/10/17 02:00 98.6 F 109 H 16 99 06/10/17 01:10 98.6 F 109 H 16 106/64 98 Weight Weight 145 lb 14.4 oz I&O: 06/09/17 06/10/17 06/11/17 06:59 06:59 06:59 Intake Total 430 60 Output Total 320 Balance 110 60 Result Diagrams: 06/10/17 03:14 06/10/17 03:14 Radiology Reviewed by me: Yes EKG Reviewed by me: Yes Phys Exam - Physical Examination Constitutional: NAD HEENT: PERRLA, moist MMs, sclera anicteric, oral pharynx no lesions Neck: no nodes, no JVD, supple Respiratory: no wheezing, no rhonchi, clear to auscultation bilateral Cardiovascular: RRR, no significant murmur, no rub Gastrointestinal: soft, non-tender, no distention, positive bowel sounds colostomy site C/D/I Musculoskeletal: no edema chronic contractures of extremities Lymphatic: no nodes Psychiatric: normal affect, A&O x 3 Skin: no rash, normal turgor, cap refill <2 seconds Dx/Plan (1) Catheter-associated urinary tract infection Code(s): T83.511A - I/I REACT D/T INDWELLING URETHRAL CATHETER, INIT; N39.0 - URINARY TRACT INFECTION, SITE NOT SPECIFIED Status: Acute Qualifiers: Indwelling urinary catheter type: indwelling urethral catheter Encounter type: initial encounter Qualified Code(s): T83.511A - Infection and inflammatory reaction due to indwelling urethral catheter, initial encounter; N39.0 - Urinary tract infection, site not specified; N39.0 - Urinary tract infection, site not specified Comment: present on admission. GNR on culture, streamline to Cefepime for now (2) Anemia of chronic disease Code(s): D63.8 - ANEMIA IN OTHER CHRONIC DISEASES CLASSIFIED ELSEWHERE Status : Chronic Comment: severe -no visible bleeding source, s/p transfusion (3) Hypokalemia Code(s): E87.6 - HYPOKALEMIA Status: Acute Comment: repeat k+ after next dose (4) S/P insertion of IVC (inferior vena caval) filter Status: Chronic (5) HTN (hypertension) Code(s): I10 - ESSENTIAL (PRIMARY) HYPERTENSION Status: Chronic Qualifiers: Hypertension type: essential hypertension Qualified Code(s): I10 - Essential (primary) hypertension (6) Lupus (systemic lupus erythematosus) Code(s): M32.9 - SYSTEMIC LUPUS ERYTHEMATOSUS, UNSPECIFIED Status: Chronic Qualifiers: Systemic lupus erythematosus type: unspecified Systemic lupus erythematosus organ involvement: unspecified Qualified Code(s): M32.9 - Systemic lupus erythematosus, unspecified (7) Physical deconditioning Code(s): R53.81 - OTHER MALAISE Status: Chronic (8) Protein-calorie malnutrition, moderate Code(s): E44.0 - MODERATE PROTEIN-CALORIE MALNUTRITION Status: Chronic Comment: encouraged po intake, need nutritional imput (9) Suprapubic catheter Code(s): Z93.59 - OTHER CYSTOSTOMY STATUS Status: Chronic Comment: for urinary retention. chornic, changed monthly, due now - Plan cont current plan of care, plan discussed w/ family, continue antibiotics, PT/OT , DVT proph w/lovenox * . Streamline abx to cefepime, i have consulted urology for SP tube exchange, will send off repeat UA after exchange. encephalopathy resolved
[2017-06-10] MEDS ORDERED: Potassium Chloride 40 MEQ in Premix Bag 1 BAG IVPB SCH (15:30)
[2017-06-10] MEDS: Cefepime 2 GM, Syringe 2.5 ML in Sterile Water 10 ML SLOW IVP SCH (17:56)
[2017-06-10] MEDS ORDERED: Cefepime 2 GM in Sodium Chloride 0.9% 100 ML IVPB SCH (21:00)
[2017-06-10] MEDS ORDERED: Vancomycin HCl 500 MG in Sodium Chloride 0.9% 100 ML IVPB SCH (22:00)
[2017-06-11 00:56] LABS: Potassium 4.4 mmol/L (3.5-5.1)
[2017-06-11 05:13] LABS: ALT (SGPT) 24 U/L (8-55); AST (SGOT) 37 U/L (5-34); Albumin 1.7 g/dL (3.5-5.0); Alkaline Phosphatase 63 U/L (40-150); Anion Gap 10 mmol/L (10-20); BUN (Urea Nitrogen) 17 mg/dL (9.8-20.1); Bilirubin, Total 0.7 mg/dL (0.2-1.2); Calc. Creatinine Clearance 102 mL/min (70-130); Calcium 7.3 mg/dL (7.8-10.44); Carbon Dioxide 21 mmol/L (22-29); Chloride 104 mmol/L (98-107); Estimated GFR-MDRD Greater than 90; Globulin 2.6 g/dL (2.4-3.5); Glucose 92 mg/dL (70-105); Magnesium 1.7 mg/dL (1.6-2.6); Phosphorus 2.3 mg/dL (2.3-4.7); Potassium 4.2 mmol/L (3.5-5.1); Protein, Total 4.3 g/dL (6.0-8.3); Sodium 131 mmol/L (136-145)
[2017-06-11 05:23] LABS: Band 21 % (5-11); Hemoglobin 10.1 g/dL (12.0-16.0); Lymphocytes 7 % (21-51); MDiff Complete? YES; Mean Corpuscular HGB CONC 32.6 g/dL (32.0-36.0); Mean Corpuscular Hemoglobin 28.8 pg (27.0-31.0); Mean Corpuscular Volume 88.2 fl (81.0-99.0); Mean Platelet Volume 7.8 fL (7.4-10.4); Monocytes 3 % (0-10); Neutrophil 69 % (42-75); PLT Morphology Comment Appears Adequate; Platelet Count 170 thou/uL (130-400); RBC Distribution Width 13.8 % (11.5-14.5); Red Blood Cell (RBC) Count 3.53 mill/uL (4.20-5.40); White Blood Cell (WBC) Count 8.7 thou/uL (4.8-10.8)
[2017-06-11] MEDS: Cefepime 2 GM, Syringe 2.5 ML in Sterile Water 10 ML SLOW IVP SCH ×2 (06:32→17:32)
[2017-06-11] MEDS: Furosemide 20 MG/2 ML VIAL SLOW IVP SCH (08:34)
[2017-06-11] MEDS: Ferrous Sulfate 325 MG TAB PO SCH (08:34)
[2017-06-11] MEDS: Enoxaparin Sodium 30 MG/0.3 ML SYRINGE SC SCH (08:34)
[2017-06-11] MEDS: Famotidine/PF 20 mg/2ml Vial SLOW IVP SCH ×2 (08:34→20:32)
[2017-06-11] MEDS: Multivitamin W/ Minerals 1 TAB PO SCH (08:34)
[2017-06-11] MEDS: Saccharomyces boulardii 250 MG CAP PO SCH (08:34)
[2017-06-11] MEDS ORDERED: FLU VACC QS2017-18 36 mo. & older 0.5 ML SYRINGE IM ONE (09:00)
--- NOTE | 2017-06-11 14:14 | PDOC.PN ---
- Subjective Encounter Start Date: 06/11/17 Encounter Start Time: 10:10 Pt appears comfortable, deneis pain, no F/C, no n/V/D/c, feels like the cobwebs have lifted. no n/V/D/C. Nutrition saw, recommended marty and ensure, may ry Ensure Enlive which pt may like better. No new compalints. BP 88-13 systolic. 10 point rOS performed and neg for all systems except as per HPI - Objective Resuscitation Status: Resuscitation Status FULL:Full Resuscitation MAR Reviewed: Yes Vital Signs & Weight: Vital Signs (12 hours) Temp Pulse Resp BP Pulse Ox 06/11/17 14:00 98 90/58 L 06/11/17 12:00 97.6 F 99 18 99/63 100 06/11/17 10:00 103 H 93/64 06/11/17 08:00 97.8 F 105 H 20 106/67 100 06/11/17 07:29 97.8 F 105 H 20 84/63 L 100 Weight Admit Weight 145 lb 14.4 oz Weight 145 lb 14.4 oz I&O: 06/10/17 06/11/17 06/12/17 06:59 06:59 06:59 Intake Total 430 1114 380 Output Total 320 100 Balance 110 1014 380 Result Diagrams: 06/11/17 04:32 06/11/17 04:32 EKG Reviewed by me: Yes Phys Exam - Physical Examination Constitutional: NAD cachectic HEENT: PERRLA, moist MMs, sclera anicteric, oral pharynx no lesions Neck: no nodes, no JVD, supple, full ROM Respiratory: no wheezing, no rales, no rhonchi, clear to auscultation bilateral Cardiovascular: RRR, no significant murmur, no rub Gastrointestinal: soft, non-tender, no distention, positive bowel sounds Musculoskeletal: pulses present, edema present quadriplegic Lymphatic: no nodes Psychiatric: normal affect, A&O x 3 Skin: no rash, normal turgor, cap refill <2 seconds Dx/Plan (1) Catheter-associated urinary tract infection Code(s): T83.511A - I/I REACT D/T INDWELLING URETHRAL CATHETER, INIT; N39.0 - URINARY TRACT INFECTION, SITE NOT SPECIFIED Status: Acute Qualifiers: Indwelling urinary catheter type: indwelling urethral catheter Encounter type: initial encounter Qualified Code(s): T83.511A - Infection and inflammatory reaction due to indwelling urethral catheter, initial encounter; N39.0 - Urinary tract infection, site not specified; N39.0 - Urinary tract infection, site not specified Comment: present on admission. pseudomonas resistant to quinolones. CCM with cefepime. SP tube to be changed today, repeat UA/UCx (2) Anemia of chronic disease Code(s): D63.8 - ANEMIA IN OTHER CHRONIC DISEASES CLASSIFIED ELSEWHERE Status : Chronic Comment: severe -no visible bleeding source, s/p transfusion (3) Hypokalemia Code(s): E87.6 - HYPOKALEMIA Status: Resolved Comment: replaced (4) S/P insertion of IVC (inferior vena caval) filter Status: Chronic (5) HTN (hypertension) Code(s): I10 - ESSENTIAL (PRIMARY) HYPERTENSION Status: Chronic Qualifiers: Hypertension type: essential hypertension Qualified Code(s): I10 - Essential (primary) hypertension Comment: hypotensive now, but stable. watch, hold meds (6) Lupus (systemic lupus erythematosus) Code(s): M32.9 - SYSTEMIC LUPUS ERYTHEMATOSUS, UNSPECIFIED Status: Chronic Qualifiers: Systemic lupus erythematosus type: unspecified Systemic lupus erythematosus organ involvement: unspecified Qualified Code(s): M32.9 - Systemic lupus erythematosus, unspecified (7) Physical deconditioning Code(s): R53.81 - OTHER MALAISE Status: Chronic (8) Protein-calorie malnutrition, moderate Code(s): E44.0 - MODERATE PROTEIN-CALORIE MALNUTRITION Status: Chronic Comment: encouraged po intake, appreciate dietary recs (9) Suprapubic catheter Code(s): Z93.59 - OTHER CYSTOSTOMY STATUS Status: Chronic Comment: for urinary retention. chornic, changed monthly, due now - Plan cont current plan of care, frey catheter, continue antibiotics, PT/OT * .
[2017-06-12] MEDS: Cefepime 2 GM, Syringe 2.5 ML in Sterile Water 10 ML SLOW IVP SCH ×2 (05:46→17:07)
[2017-06-12 07:03] LABS: ALT (SGPT) 16 U/L (8-55); AST (SGOT) 40 U/L (5-34); Albumin 1.7 g/dL (3.5-5.0); Alkaline Phosphatase 87 U/L (40-150); Anion Gap 12 mmol/L (10-20); BUN (Urea Nitrogen) 20 mg/dL (9.8-20.1); Bilirubin, Total 0.6 mg/dL (0.2-1.2); Calc. Creatinine Clearance 107 mL/min (70-130); Calcium 7.4 mg/dL (7.8-10.44); Carbon Dioxide 17 mmol/L (22-29); Chloride 107 mmol/L (98-107); Estimated GFR-MDRD Greater than 90; Globulin 2.7 g/dL (2.4-3.5); Glucose 88 mg/dL (70-105); Magnesium 1.7 mg/dL (1.6-2.6); Phosphorus 2.3 mg/dL (2.3-4.7); Potassium 4.7 mmol/L (3.5-5.1); Protein, Total 4.4 g/dL (6.0-8.3); Sodium 131 mmol/L (136-145)
[2017-06-12] MEDS: Famotidine/PF 20 mg/2ml Vial SLOW IVP SCH ×2 (09:59→22:10)
[2017-06-12] MEDS: Enoxaparin Sodium 30 MG/0.3 ML SYRINGE SC SCH (09:59)
[2017-06-12] MEDS: Ferrous Sulfate 325 MG TAB PO SCH (10:00)
[2017-06-12] MEDS: Furosemide 20 MG/2 ML VIAL SLOW IVP SCH (10:00)
[2017-06-12] MEDS: Saccharomyces boulardii 250 MG CAP PO SCH (10:00)
[2017-06-12] MEDS: Multivitamin W/ Minerals 1 TAB PO SCH (10:00)
--- NOTE | 2017-06-12 11:07 | CON ---
DATE OF CONSULTATION: 06/11/2017 CONSULTING PHYSICIAN: Hospitalist, Dr. Cason. CONSULTED PHYSICIAN: Akbar Anaya M.D. with Urology. REASON FOR CONSULTATION: Suprapubic catheter change with urosepsis. HISTORY OF PRESENT ILLNESS: Ms. Gao is a 56-year-old black female who is well known to me for hist ory of neurogenic bladder. She has multiple comorbidities including medical noncompliance, lupus, se anthony deconditioning and malnutrition along with her neurogenic bladder, which is currently managed to be an SP tube. She has had problems in the past with infections; however, she was recently found to have significantly altered mental status with fever to 102. She was brought into the hospital with SIRS criteria and admitted to the ICU for antibiotics and fluid resuscitation as well as management o f her electrolytes. After some resuscitation and antibiotics, her mentation has cleared significantl y and she is feeling better. The nursing staff did not feel comfortable changing her SP tube out on her own and has requested me for a change of her SP tube. On my discussion with the patient, she sta gordo that she has been getting her SP tube changed by home health and it was last changed about a chica h ago. She has not had problems with clogging of her catheter, significant bladder spasms or leakage to her knowledge. She normally does not have any problems with hematuria. She currently has a 24-F rench SP tube with 30 mL balloon. ALLERGIES: None. HOME MEDICATIONS: 1. Pepcid. 2. Daptomycin. PAST MEDICAL HISTORY: 1. Lupus. 2. History of DVT with IVC filter placement. 3. Deconditioning. 4. Guillain-Conowingo syndrome. 5. Protein calorie malnutrition. 6. Sacral decubitus ulcer. 7. Neurogenic bladder. PAST SURGICAL HISTORY: 1. Suprapubic catheter placement. 2. Left subclavian vein port. 3. Colostomy. 4. IVC filter placement. FAMILY HISTORY: Noncontributory. SOCIAL HISTORY: Patient denies alcohol, drugs or tobacco abuse. She is and lives with her gerson mijares at home. She does have home health care for her SP tube changes which normally comes out for catheter assistance and changes once a month. REVIEW OF SYSTEMS: A 12 point review of systems is unremarkable other than what was commented on the HPI. Specifically, she states she is feeling much better. She denies any chest pain, shortness of breath, nausea, vomiting, abdominal pain, bladder spasms, hematuria, and dysuria leakage. Remainder of 12-point review of systems was reviewed and otherwise negative other than some mild malaise and fa tigue. PHYSICAL EXAMINATION: VITAL SIGNS: Temperature 97.6, pulse 90, respirations 17, blood pressure 109/70, saturation 100% on room air. GENERAL: No apparent distress, communicative and alert. Appears stated age, somewhat chronically il l appearing. HEENT: Normocephalic, atraumatic. Pupils are symmetric and round. Sclerae are nonicteric. Trachea midline. Moist mucous membranes. Poor dentition. CHEST: Bibasilar crackles, no increased work of breathing. Symmetric expansion of lungs. CARDIOVASCULAR: Regular rate and rhythm. Normal S1 and S2. ABDOMEN: Soft, nontender, nondistended, positive bowel sounds, no organomegaly. SP tube is in good location with clear yellow urine. GENITOURINARY: There is significant edema around the genital area. A full vaginal exam was not perf ormed. SKIN: Warm, dry, a kind of diffuse anasarca present. EXTREMITIES: No clubbing or cyanosis, 3+ edema bilaterally. MUSCULOSKELETAL: The patient is weak and moves her lower extremities weakly. Upper extremities have good range of motion, but are still weak. No joint deformities or joint erythema noted. NEUROLOGIC: Cranial nerves II-XII appear grossly intact. The patient can only move her legs minimal ly and arms weekly, indicating likely malnutrition and decreased muscle tone. PSYCHIATRIC: Alert and oriented x3, somewhat flat affect and somewhat depressed, but otherwise commu nicative. LABORATORY DATA: On laboratory evaluation, a full set of labs in the [facility] system, which I have r melwed. Of note, the patient's white count is 8.7 with platelet count of 170 and hemoglobin of 10.1 . Creatinine is currently 0.63. PROCEDURE: SP tube was changed under sterile conditions, the old SP tube was removed and a new Frenc h SP tube placed with ease into the bladder. Ten mL of sterile water were placed into the balloon, t his was only a 5 mL balloon. This was secured with a StatLock to the patient's leg and flushed gentl y to remove any sediment. The catheter then began draining fine. ASSESSMENT AND PLAN: A 56-year-old black female with multiple comorbidities with likely urosepsis se condary to malnutrition and poor hygiene with likely compromised immune function. Her SP tube has be en changed and she likely needs to continue medical management. Urinary tract infections are expecte d about once or twice a year with chronic indwelling catheter and her bladder will normally be coloni zed; however, I agree with antibiotic therapy given her fevers and significant hypotension and altere d mental status. Ultimately, patient needs better nourishment which will improve her immune function which should lower her risk for future infections. From my standpoint, there is not much further I would perform in the hospital other than continuation of her SP tube which will need to be remained f or life. She can follow up with me as scheduled as an outpatient. I will sign off currently and ple ase reconsult if there is any further assistance necessary.
--- NOTE | 2017-06-12 14:54 | PDOC.PN ---
- Subjective Encounter Start Date: 06/12/17 Encounter Start Time: 12:00 Pt feels about the same. legs weeping, no f/C, no N/V/D/C, no CP or sOB. 10 point ROS performed and neg for all systems except as per HPI - Objective Resuscitation Status: Resuscitation Status FULL:Full Resuscitation MAR Reviewed: Yes Vital Signs & Weight: Vital Signs (12 hours) Temp Pulse Resp BP Pulse Ox 06/12/17 11:13 97.5 F L 99 16 128/72 06/12/17 07:47 97.6 F 90 17 100 06/12/17 07:10 97.6 F 90 17 109/70 100 06/12/17 04:00 97.7 F 91 18 115/77 100 Weight Admit Weight 145 lb 14.4 oz Weight 145 lb 14.4 oz I&O: 06/11/17 06/12/17 06/13/17 06:59 06:59 06:59 Intake Total 1114 644 240 Output Total 100 325 Balance 1014 319 240 Result Diagrams: 06/11/17 04:32 06/12/17 06:18 Radiology Reviewed by me: Yes EKG Reviewed by me: Yes Phys Exam - Physical Examination Constitutional: NAD HEENT: PERRLA, moist MMs, sclera anicteric, oral pharynx no lesions Neck: no nodes, no JVD, supple, full ROM Respiratory: no wheezing, no rales, no rhonchi, clear to auscultation bilateral Cardiovascular: RRR, no significant murmur, no rub Gastrointestinal: soft, non-tender, no distention, positive bowel sounds Musculoskeletal: pulses present, edema present anasarca to lower assisted of body, pitting edema to abdomen. quadriplegic, BUE contractures Lymphatic: no nodes Psychiatric: normal affect, A&O x 3 Deviation from normal: candidal intertrigo to moist inner thoigh region Dx/Plan (1) Catheter-associated urinary tract infection Code(s): T83.511A - I/I REACT D/T INDWELLING URETHRAL CATHETER, INIT; N39.0 - URINARY TRACT INFECTION, SITE NOT SPECIFIED Status: Acute Qualifiers: Indwelling urinary catheter type: indwelling urethral catheter Encounter type: initial encounter Qualified Code(s): T83.511A - Infection and inflammatory reaction due to indwelling urethral catheter, initial encounter; N39.0 - Urinary tract infection, site not specified; N39.0 - Urinary tract infection, site not specified Comment: present on admission. pseudomonas resistant to quinolones. CCM with cefepime. SP tube changed PM 06/11 repeat UCx neg at 12 hours (2) Anemia of chronic disease Code(s): D63.8 - ANEMIA IN OTHER CHRONIC DISEASES CLASSIFIED ELSEWHERE Status : Chronic Comment: severe -no visible bleeding source, s/p transfusion (3) Hypokalemia Code(s): E87.6 - HYPOKALEMIA Status: Resolved Comment: replaced (4) S/P insertion of IVC (inferior vena caval) filter Status: Chronic (5) HTN (hypertension) Code(s): I10 - ESSENTIAL (PRIMARY) HYPERTENSION Status: Chronic Qualifiers: Hypertension type: essential hypertension Qualified Code(s): I10 - Essential (primary) hypertension Comment: hypotensive now, but stable. watch, hold meds (6) Lupus (systemic lupus erythematosus) Code(s): M32.9 - SYSTEMIC LUPUS ERYTHEMATOSUS, UNSPECIFIED Status: Chronic Qualifiers: Systemic lupus erythematosus type: unspecified Systemic lupus erythematosus organ involvement: unspecified Qualified Code(s): M32.9 - Systemic lupus erythematosus, unspecified (7) Physical deconditioning Code(s): R53.81 - OTHER MALAISE Status: Chronic (8) Protein-calorie malnutrition, moderate Code(s): E44.0 - MODERATE PROTEIN-CALORIE MALNUTRITION Status: Chronic Comment: encouraged po intake, appreciate dietary recs (9) Suprapubic catheter Code(s): Z93.59 - OTHER CYSTOSTOMY STATUS Status: Chronic Comment: for urinary retention. chornic, changed monthly, due now (10) Candidal intertrigo Code(s): B37.2 - CANDIDIASIS OF SKIN AND NAIL Status: Acute Comment: keep dry, adding in Fluc daily. Need to weepage, but anasarca and chronic drainage will be a problem with alb at 1.7 - Plan cont current plan of care, continue antibiotics, PT/OT, DVT proph w/lovenox * .
[2017-06-12] MEDS ORDERED: Nystatin Powder 15 GM BOT TOP PRN (14:58)
[2017-06-12] MEDS: Fluconazole 100 MG TAB PO SCH (15:34)
[2017-06-12 20:04] LABS: Acanthocytes SLIGHT = 1-5 cells (100X) (None Seen); Band 10 % (5-11); Hemoglobin 9.4 g/dL (12.0-16.0); Hypochromia SLIGHT = 6-15 cells (100X) (0-5/hpf); Lymphocytes 3 % (21-51); MDiff Complete? YES; Mean Corpuscular HGB CONC 31.8 g/dL (32.0-36.0); Mean Corpuscular Hemoglobin 28.5 pg (27.0-31.0); Mean Corpuscular Volume 89.6 fl (81.0-99.0); Mean Platelet Volume 7.2 fL (7.4-10.4); Monocytes 2 % (0-10); Neutrophil 85 % (42-75); PLT Morphology Comment Appears Adequate; Platelet Count 167 thou/uL (130-400); RBC Distribution Width 13.7 % (11.5-14.5); Red Blood Cell (RBC) Count 3.28 mill/uL (4.20-5.40); White Blood Cell (WBC) Count 11.3 thou/uL (4.8-10.8)
[2017-06-13] MEDS: Cefepime 2 GM, Syringe 2.5 ML in Sterile Water 10 ML SLOW IVP SCH ×2 (05:36→17:50)
[2017-06-13 06:20] LABS: ALT (SGPT) 18 U/L (8-55); AST (SGOT) 32 U/L (5-34); Albumin 1.8 g/dL (3.5-5.0); Alkaline Phosphatase 93 U/L (40-150); Anion Gap 10 mmol/L (10-20); BUN (Urea Nitrogen) 21 mg/dL (9.8-20.1); Bilirubin, Total 0.5 mg/dL (0.2-1.2); Calc. Creatinine Clearance 115 mL/min (70-130); Calcium 7.7 mg/dL (7.8-10.44); Carbon Dioxide 21 mmol/L (22-29); Chloride 105 mmol/L (98-107); Estimated GFR-MDRD Greater than 90; Globulin 2.9 g/dL (2.4-3.5); Glucose 68 mg/dL (70-105); Magnesium 1.6 mg/dL (1.6-2.6); Phosphorus 2.3 mg/dL (2.3-4.7); Potassium 3.7 mmol/L (3.5-5.1); Protein, Total 4.7 g/dL (6.0-8.3); Sodium 132 mmol/L (136-145)
[2017-06-13 06:28] LABS: Band 13 % (5-11); Hemoglobin 8.8 g/dL (12.0-16.0); Lymphocytes 2 % (21-51); MDiff Complete? YES; Mean Corpuscular HGB CONC 32.3 g/dL (32.0-36.0); Mean Corpuscular Hemoglobin 28.9 pg (27.0-31.0); Mean Corpuscular Volume 89.4 fl (81.0-99.0); Mean Platelet Volume 8.2 fL (7.4-10.4); Monocytes 1 % (0-10); Myelocyte 1 % (0-0); Neutrophil 83 % (42-75); Platelet Count 185 thou/uL (130-400); RBC Distribution Width 13.9 % (11.5-14.5); Red Blood Cell (RBC) Count 3.04 mill/uL (4.20-5.40); White Blood Cell (WBC) Count 9.2 thou/uL (4.8-10.8)
[2017-06-13] MEDS: Ferrous Sulfate 325 MG TAB PO SCH (10:07)
[2017-06-13] MEDS: Enoxaparin Sodium 30 MG/0.3 ML SYRINGE SC SCH (10:07)
[2017-06-13] MEDS: Multivitamin W/ Minerals 1 TAB PO SCH ×2 (10:07→15:55)
[2017-06-13] MEDS: Saccharomyces boulardii 250 MG CAP PO SCH ×2 (10:07→15:55)
[2017-06-13] MEDS: Furosemide 20 MG/2 ML VIAL SLOW IVP SCH (10:08)
[2017-06-13] MEDS: Famotidine/PF 20 mg/2ml Vial SLOW IVP SCH ×2 (10:13→20:49)
[2017-06-13] MEDS: Fluconazole 100 MG TAB PO SCH (14:46)
--- NOTE | 2017-06-13 15:21 | PDOC.PN ---
- Subjective Encounter Start Date: 06/13/17 Encounter Start Time: 13:15 Pt feeling about the same, no F/C, no n/V/D/C, no CP or sOB. plan to go home on discharge No acute events, no new compalints, toelrating IV abs well. 10 point rOS performed and neg for all systems except as above - Objective Resuscitation Status: Resuscitation Status FULL:Full Resuscitation MAR Reviewed: Yes Vital Signs & Weight: Vital Signs (12 hours) Temp Pulse Resp BP Pulse Ox 06/13/17 08:00 97.6 F 92 20 99 06/13/17 04:00 97.6 F 92 20 139/86 100 Weight Admit Weight 145 lb 14.4 oz Weight 152 lb 9.6 oz I&O: 06/12/17 06/13/17 06/14/17 06:59 06:59 06:59 Intake Total 644 530 Output Total 325 550 Balance 319 -20 Result Diagrams: 06/13/17 05:38 06/14/17 04:32 EKG Reviewed by me: Yes Phys Exam - Physical Examination Constitutional: NAD HEENT: PERRLA, moist MMs, sclera anicteric, oral pharynx no lesions Neck: no nodes, no JVD, supple, full ROM Respiratory: no wheezing, no rales, no rhonchi, clear to auscultation bilateral Cardiovascular: RRR, no significant murmur, no rub Gastrointestinal: soft, non-tender, no distention, positive bowel sounds Musculoskeletal: pulses present, edema present anasarco to lower 1/2 of body quadrparetic Lymphatic: no nodes Psychiatric: normal affect, A&O x 3 Skin: no rash, normal turgor, cap refill <2 seconds Deviation from normal: candidal intertrig to bilateral inner thighs, left better Dx/Plan (1) Catheter-associated urinary tract infection Code(s): T83.511A - I/I REACT D/T INDWELLING URETHRAL CATHETER, INIT; N39.0 - URINARY TRACT INFECTION, SITE NOT SPECIFIED Status: Acute Qualifiers: Indwelling urinary catheter type: indwelling urethral catheter Encounter type: initial encounter Qualified Code(s): T83.511A - Infection and inflammatory reaction due to indwelling urethral catheter, initial encounter; N39.0 - Urinary tract infection, site not specified; N39.0 - Urinary tract infection, site not specified Comment: present on admission. pseudomonas resistant to quinolones. CCM with cefepime. SP tube changed PM 06/11 repeat UCx neg at 12 hours (2) Anemia of chronic disease Code(s): D63.8 - ANEMIA IN OTHER CHRONIC DISEASES CLASSIFIED ELSEWHERE Status : Chronic Comment: severe -no visible bleeding source, s/p transfusion (3) S/P insertion of IVC (inferior vena caval) filter Status: Chronic (4) HTN (hypertension) Code(s): I10 - ESSENTIAL (PRIMARY) HYPERTENSION Status: Chronic Qualifiers: Hypertension type: essential hypertension Qualified Code(s): I10 - Essential (primary) hypertension Comment: hypotensive now, but stable. watch, hold meds (5) Lupus (systemic lupus erythematosus) Code(s): M32.9 - SYSTEMIC LUPUS ERYTHEMATOSUS, UNSPECIFIED Status: Chronic Qualifiers: Systemic lupus erythematosus type: unspecified Systemic lupus erythematosus organ involvement: unspecified Qualified Code(s): M32.9 - Systemic lupus erythematosus, unspecified (6) Physical deconditioning Code(s): R53.81 - OTHER MALAISE Status: Chronic (7) Protein-calorie malnutrition, moderate Code(s): E44.0 - MODERATE PROTEIN-CALORIE MALNUTRITION Status: Chronic Comment: encouraged po intake, appreciate dietary recs (8) Suprapubic catheter Code(s): Z93.59 - OTHER CYSTOSTOMY STATUS Status: Chronic Comment: for urinary retention. chornic, changed monthly, due now (9) Candidal intertrigo Code(s): B37.2 - CANDIDIASIS OF SKIN AND NAIL Status: Acute Comment: keep dry, adding in Fluc daily. Need to weepage, but anasarca and chronic drainage will be a problem with alb at 1.7 - Plan * .
[2017-06-13] MEDS ORDERED: Morphine 5 MG/ML SYRINGE SLOW IVP PRN (22:35)
[2017-06-13] MEDS: Morphine 5 MG/ML SYRINGE SLOW IVP PRN (23:46)
[2017-06-14] MEDS: Cefepime 2 GM, Syringe 2.5 ML in Sterile Water 10 ML SLOW IVP SCH ×2 (04:37→17:12)
[2017-06-14 05:39] LABS: Anion Gap 13 mmol/L (10-20); BUN (Urea Nitrogen) 21 mg/dL (9.8-20.1); Calc. Creatinine Clearance 130 mL/min (70-130); Carbon Dioxide 17 mmol/L (22-29); Chloride 106 mmol/L (98-107); Estimated GFR-MDRD Greater than 90; Magnesium 1.5 mg/dL (1.6-2.6); Phosphorus 2.5 mg/dL (2.3-4.7); Potassium 3.5 mmol/L (3.5-5.1); Sodium 132 mmol/L (136-145)
[2017-06-14 05:42] LABS: Glucose 59 mg/dL (70-105)
[2017-06-14] MEDS ORDERED: Dextrose 50% Abboject 50 ML SYRINGE ONE (06:13)
[2017-06-14] MEDS ORDERED: Dextrose 50% Abboject 50 ML SYRINGE SLOW IVP SCH (06:45)
[2017-06-14] MEDS ORDERED: Magnesium 2 GM/NS 0.9% 100 ML 2 GM in Premix Bag 1 BAG IVPB SCH (07:30)
[2017-06-14] MEDS: Enoxaparin Sodium 30 MG/0.3 ML SYRINGE SC SCH (11:18)
[2017-06-14] MEDS: Furosemide 20 MG/2 ML VIAL SLOW IVP SCH (11:19)
[2017-06-14] MEDS: Famotidine/PF 20 mg/2ml Vial SLOW IVP SCH ×2 (11:19→20:57)
[2017-06-14] MEDS: Ferrous Sulfate 325 MG TAB PO SCH (11:19)
[2017-06-14] MEDS: Multivitamin W/ Minerals 1 TAB PO SCH (11:20)
[2017-06-14] MEDS: Saccharomyces boulardii 250 MG CAP PO SCH (11:20)
--- NOTE | 2017-06-14 11:31 | PDOC.PN ---
- Subjective Encounter Start Date: 06/14/17 Encounter Start Time: 09:05 - Objective Resuscitation Status: Resuscitation Status FULL:Full Resuscitation MAR Reviewed: Yes Vital Signs & Weight: Vital Signs (12 hours) Temp Pulse Resp BP Pulse Ox 06/14/17 08:10 97.4 F L 97 18 137/88 06/14/17 05:25 99 06/14/17 04:00 97.1 F L 96 18 132/85 99 06/14/17 00:00 97 18 137/87 Weight Admit Weight 145 lb 14.4 oz Weight 152 lb 6.4 oz I&O: 06/13/17 06/14/17 06/15/17 06:59 06:59 06:59 Intake Total 530 271.4 Output Total 550 1225 Balance -20 -953.6 Result Diagrams: 06/13/17 05:38 06/14/17 04:32 Additional Labs: Accuchecks 06/14/17 06/14/17 06:41 06:11 POC Glucose 85 57 L* Phys Exam - Physical Examination Constitutional: NAD HEENT: PERRLA, moist MMs, sclera anicteric, oral pharynx no lesions Neck: no nodes, no JVD, supple, full ROM Respiratory: no wheezing, no rales, no rhonchi, clear to auscultation bilateral Cardiovascular: RRR, no significant murmur, no rub Gastrointestinal: soft, non-tender, no distention, positive bowel sounds Musculoskeletal: pulses present, edema present anasarca quadriparetic Lymphatic: no nodes Psychiatric: normal affect Dx/Plan (1) Catheter-associated urinary tract infection Code(s): T83.511A - I/I REACT D/T INDWELLING URETHRAL CATHETER, INIT; N39.0 - URINARY TRACT INFECTION, SITE NOT SPECIFIED Status: Acute Qualifiers: Indwelling urinary catheter type: indwelling urethral catheter Encounter type: initial encounter Qualified Code(s): T83.511A - Infection and inflammatory reaction due to indwelling urethral catheter, initial encounter; N39.0 - Urinary tract infection, site not specified; N39.0 - Urinary tract infection, site not specified Comment: present on admission. pseudomonas resistant to quinolones. CCM with cefepime. SP tube changed PM 06/11 repeat UCx neg at 36 hours. rx another 24- 48 hours. 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 watch, hold meds (5) Lupus (systemic lupus erythematosus) Code(s): M32.9 - SYSTEMIC LUPUS ERYTHEMATOSUS, UNSPECIFIED Status: Chronic Qualifiers: Systemic lupus erythematosus type: unspecified Systemic lupus erythematosus organ involvement: unspecified Qualified Code(s): M32.9 - Systemic lupus erythematosus, unspecified (6) Physical deconditioning Code(s): R53.81 - OTHER MALAISE Status: Chronic (7) Protein-calorie malnutrition, moderate Code(s): E44.0 - MODERATE PROTEIN-CALORIE MALNUTRITION Status: Chronic Comment: encouraged po intake, appreciate dietary recs (8) Suprapubic catheter Code(s): Z93.59 - OTHER CYSTOSTOMY STATUS Status: Chronic Comment: for urinary retention. chornic, changed monthly, due now (9) Candidal intertrigo Code(s): B37.2 - CANDIDIASIS OF SKIN AND NAIL Status: Acute Comment: keep dry, adding in Fluc daily. Need to weepage, but anasarca and chronic drainage will be a problem with alb at 1.7 - Plan cont current plan of care, continue antibiotics, PT/OT, DVT proph w/lovenox * .
[2017-06-14] MEDS: Fluconazole 100 MG TAB PO SCH (17:13)
[2017-06-14] MEDS ORDERED: Dextrose 5 %-0.45 % NaCl 1,000 ML IV SCH (21:15)
[2017-06-15] MEDS: Cefepime 2 GM, Syringe 2.5 ML in Sterile Water 10 ML SLOW IVP SCH ×2 (04:36→17:14)
[2017-06-15 05:49] LABS: Anion Gap 13 mmol/L (10-20); BUN (Urea Nitrogen) 22 mg/dL (9.8-20.1); Calc. Creatinine Clearance 125 mL/min (70-130); Calcium 7.9 mg/dL (7.8-10.44); Carbon Dioxide 18 mmol/L (22-29); Chloride 107 mmol/L (98-107); Estimated GFR-MDRD Greater than 90; Glucose 95 mg/dL (70-105); Magnesium 1.7 mg/dL (1.6-2.6); Phosphorus 2.6 mg/dL (2.3-4.7); Potassium 3.2 mmol/L (3.5-5.1); Sodium 135 mmol/L (136-145)
[2017-06-15 05:54] LABS: Band 23 % (5-11); Hemoglobin 10.1 g/dL (12.0-16.0); Lymphocytes 2 % (21-51); MDiff Complete? YES; Mean Corpuscular HGB CONC 32.5 g/dL (32.0-36.0); Mean Corpuscular Hemoglobin 28.8 pg (27.0-31.0); Mean Corpuscular Volume 88.6 fl (81.0-99.0); Mean Platelet Volume 8.1 fL (7.4-10.4); Metamyelocyte 1 % (0-0); Monocytes 4 % (0-10); Neutrophil 70 % (42-75); PLT Morphology Comment Appears Decreased; Platelet Count 112 thou/uL (130-400); RBC Distribution Width 13.8 % (11.5-14.5); Red Blood Cell (RBC) Count 3.49 mill/uL (4.20-5.40); White Blood Cell (WBC) Count 6.7 thou/uL (4.8-10.8)
[2017-06-15] MEDS: Enoxaparin Sodium 30 MG/0.3 ML SYRINGE SC SCH (09:37)
[2017-06-15] MEDS: Famotidine/PF 20 mg/2ml Vial SLOW IVP SCH ×2 (09:37→22:08)
[2017-06-15] MEDS: Furosemide 20 MG/2 ML VIAL SLOW IVP SCH (09:38)
[2017-06-15] MEDS: Saccharomyces boulardii 250 MG CAP PO SCH (09:39)
[2017-06-15] MEDS: Multivitamin W/ Minerals 1 TAB PO SCH (09:39)
[2017-06-15] MEDS: Ferrous Sulfate 325 MG TAB PO SCH (09:41)
[2017-06-15] MEDS ORDERED: Sodium Chloride 0.9% 500 ML IV SCH (11:15)
[2017-06-15 11:49] LABS: Anion Gap 12 mmol/L (10-20); BUN (Urea Nitrogen) 23 mg/dL (9.8-20.1); Calc. Creatinine Clearance 122 mL/min (70-130); Calcium 7.8 mg/dL (7.8-10.44); Carbon Dioxide 19 mmol/L (22-29); Chloride 107 mmol/L (98-107); Estimated GFR-MDRD Greater than 90; Glucose 113 mg/dL (70-105); Magnesium 1.7 mg/dL (1.6-2.6); Potassium 3.2 mmol/L (3.5-5.1); Sodium 135 mmol/L (136-145)
[2017-06-15] MEDS: Sodium Chloride 0.9% 1,000 ML IV SCH ×2 (11:58→22:41)
[2017-06-15] MEDS: Morphine 5 MG/ML SYRINGE SLOW IVP PRN (12:03)
--- NOTE | 2017-06-15 12:22 | EKG ---
Test Reason : AMS Blood Pressure : / mmHG Vent. Rate : 128 BPM Atrial Rate : 156 BPM P-R Int : 000 ms QRS Dur : 084 ms QT Int : 304 ms P-R-T Axes : 000 016 178 degrees QTc Int : 443 ms Atrial fibrillation with rapid ventricular response Nonspecific ST and T wave abnormality , probably digitalis effect Abnormal ECG Confirmed by COOPER SALES M.D. ([id number]), newspaper editor LORETO KENNY ([id number]) on 06/15/2017 12:21:45 PM Referred By: Confirmed By:COOPER SALES M.D.
[2017-06-15 13:20] LABS: Bilirubin Negative (Negative); Blood, Urine Trace (Negative); Clarity CLEAR (Clear); Glucose, Urine (Dipstick) Negative (Negative); Leukocyte Trace (Negative); Nitrite Negative (Negative); Protein, Urine (Dipstick) Trace mg/dL (Neg-Trace); Specific Gravity, Urine 1.011 (1.002-1.036); Urobilinogen 0.2 mg/dL (0.2-1.0); pH, Urine 5.5 (5.0-9.0)
[2017-06-15 13:23] LABS: Bacteria/HPF None Seen HPF (None Seen); Hyaline Casts/LPF 0-3 HYALINE CAST LPF (0-3 Hyaline); Pathc Cast-AUWi Flag 0.54 (0-2.49); Squamous Epithelial 0-3 HPF (0-3)
[2017-06-15 13:24] LABS: Yeast-AUWi Flag 53.9 (0-25.0)
[2017-06-15 13:35] LABS: Yeast-All Forms 1+ HPF (None Seen)
[2017-06-15] MEDS: Fluconazole 100 MG TAB PO SCH (15:00)
--- NOTE | 2017-06-15 15:21 | PDOC.PN ---
- Subjective Encounter Start Date: 06/15/17 Encounter Start Time: 10:40 -: non-verbal Pt opens eyes to verbal and tactil stimulation, but is nonverbal today. Had been refusing po for last 24 hours, today not awake enough to take anything. ST consulted per protocool, recommends nothing by mouth. no F/C, no N/V/D/C, no acute events noted. ROS not obtainable - Objective Resuscitation Status: Resuscitation Status FULL:Full Resuscitation MAR Reviewed: Yes Vital Signs & Weight: Vital Signs (12 hours) Temp Pulse Resp BP Pulse Ox 06/15/17 11:06 96.8 F L 101 H 16 139/91 H 98 06/15/17 09:00 97.4 F L 104 H 20 136/78 100 06/15/17 07:30 97.4 F L 94 16 96 06/15/17 04:33 97.1 F L 100 20 140/90 99 Weight Admit Weight 145 lb 14.4 oz Weight 148 lb 11.2 oz I&O: 06/14/17 06/15/17 06/16/17 06:59 06:59 06:59 Intake Total 271.4 600 863.4 Output Total 1225 850 Balance -953.6 -250 863.4 Result Diagrams: 06/15/17 04:33 06/15/17 11:20 Additional Labs: Accuchecks 06/15/17 06/15/17 06/15/17 11:06 06:10 01:00 POC Glucose 115 H 110 83 06/14/17 06/14/17 20:17 16:19 POC Glucose 66 L 74 Phys Exam - Physical Examination nonverbal, opens eye to verbal stim, not followng commands or interacting t HEENT: PERRLA, moist MMs, sclera anicteric, oral pharynx no lesions Neck: no nodes, no JVD, supple, full ROM Respiratory: no wheezing, no rales, no rhonchi, clear to auscultation bilateral Cardiovascular: RRR, no significant murmur, no rub Gastrointestinal: soft, non-tender, no distention, positive bowel sounds Musculoskeletal: pulses present, edema present quadriparetic, no movement or grimacing when moving legs today Skin: normal turgor, cap refill <2 seconds Deviation from normal: edema to medial thoughs improved , less redness, less heat Dx/Plan (1) Catheter-associated urinary tract infection Code(s): T83.511A - I/I REACT D/T INDWELLING URETHRAL CATHETER, INIT; N39.0 - URINARY TRACT INFECTION, SITE NOT SPECIFIED Status: Acute Qualifiers: Indwelling urinary catheter type: indwelling urethral catheter Encounter type: initial encounter Qualified Code(s): T83.511A - Infection and inflammatory reaction due to indwelling urethral catheter, initial encounter; N39.0 - Urinary tract infection, site not specified; N39.0 - Urinary tract infection, site not specified Comment: present on admission. pseudomonas resistant to quinolones. CCM with cefepime. SP tube changed PM 06/11 repeat UCx neg at 36 hours. rx another 24- 48 hours. 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 watch, hold meds (5) Lupus (systemic lupus erythematosus) Code(s): M32.9 - SYSTEMIC LUPUS ERYTHEMATOSUS, UNSPECIFIED Status: Chronic Qualifiers: Systemic lupus erythematosus type: unspecified Systemic lupus erythematosus organ involvement: unspecified Qualified Code(s): M32.9 - Systemic lupus erythematosus, unspecified (6) Physical deconditioning Code(s): R53.81 - OTHER MALAISE Status: Chronic (7) Protein-calorie malnutrition, moderate Code(s): E44.0 - MODERATE PROTEIN-CALORIE MALNUTRITION Status: Chronic Comment: encouraged po intake, appreciate dietary recs (8) Suprapubic catheter Code(s): Z93.59 - OTHER CYSTOSTOMY STATUS Status: Chronic Comment: for urinary retention. chornic, changed monthly, due now (9) Candidal intertrigo Code(s): B37.2 - CANDIDIASIS OF SKIN AND NAIL Status: Acute Comment: keep dry, adding in Fluc daily. Need to weepage, but anasarca and chronic drainage will be a problem with alb at 1.7 (10) Metabolic encephalopathy Code(s): G93.41 - METABOLIC ENCEPHALOPATHY Status: Acute Comment: present on admit, resolved, not recurring. UA negative, Labs okay, on morphine for pain , ambiens as needed. Will hydrate, hold sedating meds, continue abx and monitor - Plan * .
[2017-06-15] MEDS ORDERED: Acetaminophen 650 MG Suppository PR PRN (17:06)
[2017-06-15] MEDS: Fluconazole In NaCl,Iso-Osm 200 MG in Premix Bag 1 BAG IVPB SCH (17:51)
[2017-06-16] MEDS: Sodium Chloride 0.9% 1,000 ML IV SCH ×2 (00:20→23:26)
[2017-06-16] MEDS: Cefepime 2 GM, Syringe 2.5 ML in Sterile Water 10 ML SLOW IVP SCH ×2 (05:43→17:03)
[2017-06-16 06:27] LABS: #Lymphocytes 0.4 thou/uL (1.20-3.40); #Monocytes 0.1 thou/uL (0.11-0.59); #Neutrophils 6.1 thou/uL (1.40-6.50); %Eosinophils 0.5 % (0.0-10.0); %Lymphocytes 5.5 % (21.0-51.0); %Monocytes 1.4 % (0.0-10.0); %Neutrophils 92.6 % (42.0-75.0); Hemoglobin 10.6 g/dL (12.0-16.0); Mean Corpuscular HGB CONC 32.4 g/dL (32.0-36.0); Mean Corpuscular Hemoglobin 28.6 pg (27.0-31.0); Mean Corpuscular Volume 88.4 fl (81.0-99.0); Platelet Count 87 thou/uL (130-400); RBC Distribution Width 14.1 % (11.5-14.5); White Blood Cell (WBC) Count 6.6 thou/uL (4.8-10.8)
[2017-06-16 06:45] LABS: Anion Gap 9 mmol/L (10-20); BUN (Urea Nitrogen) 21 mg/dL (9.8-20.1); Calc. Creatinine Clearance 128 mL/min (70-130); Calcium 7.6 mg/dL (7.8-10.44); Carbon Dioxide 21 mmol/L (22-29); Chloride 109 mmol/L (98-107); Estimated GFR-MDRD Greater than 90; Glucose 73 mg/dL (70-105); Magnesium 1.3 mg/dL (1.6-2.6); Phosphorus 2.5 mg/dL (2.3-4.7); Sodium 136 mmol/L (136-145)
[2017-06-16 06:48] LABS: Potassium 2.9 mmol/L (3.5-5.1)
[2017-06-16] MEDS: Potassium Chloride 40 MEQ in Sodium Chloride 0.9% 500 ML IVPB SCH ×2 (09:12→13:52)
[2017-06-16] MEDS: Furosemide 20 MG/2 ML VIAL SLOW IVP SCH (09:19)
[2017-06-16] MEDS: Famotidine/PF 20 mg/2ml Vial SLOW IVP SCH ×2 (09:19→22:03)
[2017-06-16] MEDS: Enoxaparin Sodium 30 MG/0.3 ML SYRINGE SC SCH (09:20)
[2017-06-16] MEDS: Ferrous Sulfate 325 MG TAB PO SCH (09:26)
[2017-06-16] MEDS: Saccharomyces boulardii 250 MG CAP PO SCH (09:26)
[2017-06-16] MEDS: Multivitamin W/ Minerals 1 TAB PO SCH (09:26)
[2017-06-16] MEDS ORDERED: Potassium Chloride 40 MEQ in Sodium Chloride 0.9% 250 ML 250 ML IVPB SCH (10:30)
--- NOTE | 2017-06-16 13:33 | PDOC.PN ---
- Subjective Encounter Start Date: 06/16/17 Encounter Start Time: 10:30 -: non-verbal Pt a little more arousable, but still not rresponsive. No f/C, no n/V/D/C. no overnight acute events. ROS not obtainable - Objective Resuscitation Status: Resuscitation Status FULL:Full Resuscitation MAR Reviewed: Yes Vital Signs & Weight: Vital Signs (12 hours) Temp Pulse Resp BP Pulse Ox 06/16/17 08:00 97.4 F L 100 20 161/94 H 100 06/16/17 04:00 98.1 F 98 18 151/89 H 100 Weight Admit Weight 145 lb 14.4 oz Weight 155 lb 11.2 oz I&O: 06/15/17 06/16/17 06/17/17 06:59 06:59 06:59 Intake Total 600 3874.4 Output Total 850 4325 Balance -250 -450.6 Result Diagrams: 06/16/17 06:08 06/16/17 06:08 Additional Labs: Accuchecks 06/16/17 06/16/17 06/15/17 11:02 05:50 20:20 POC Glucose 70 81 112 H 06/15/17 16:31 POC Glucose 107 Radiology Reviewed by me: Yes EKG Reviewed by me: Yes Phys Exam - Physical Examination sleeping, barely opens eyes to verbal or tactile stimuli, unresponive other HEENT: PERRLA, sclera anicteric, oral pharynx no lesions membranes tacky Neck: no nodes, no JVD, supple, full ROM Respiratory: no wheezing, no rales, no rhonchi, clear to auscultation bilateral upper gurgling Cardiovascular: RRR, no significant murmur, no rub Gastrointestinal: soft, non-tender, no distention, positive bowel sounds Musculoskeletal: pulses present, edema present Neurological: non-focal, normal sensation, moves all 4 limbs quadriparetic Lymphatic: no nodes Psychiatric: normal affect, A&O x 3 Skin: no rash, normal turgor, cap refill <2 seconds Dx/Plan (1) Catheter-associated urinary tract infection Code(s): T83.511A - I/I REACT D/T INDWELLING URETHRAL CATHETER, INIT; N39.0 - URINARY TRACT INFECTION, SITE NOT SPECIFIED Status: Acute Qualifiers: Indwelling urinary catheter type: indwelling urethral catheter Encounter type: initial encounter Qualified Code(s): T83.511A - Infection and inflammatory reaction due to indwelling urethral catheter, initial encounter; N39.0 - Urinary tract infection, site not specified; N39.0 - Urinary tract infection, site not specified Comment: present on admission. pseudomonas resistant to quinolones. CCM with cefepime. SP tube changed PM 06/11 repeat UCx neg at 36 hours. rx another 24 hours. 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 watch, hold meds (5) Lupus (systemic lupus erythematosus) Code(s): M32.9 - SYSTEMIC LUPUS ERYTHEMATOSUS, UNSPECIFIED Status: Chronic Qualifiers: Systemic lupus erythematosus type: unspecified Systemic lupus erythematosus organ involvement: unspecified Qualified Code(s): M32.9 - Systemic lupus erythematosus, unspecified Comment: not on treatment per (6) Physical deconditioning Code(s): R53.81 - OTHER MALAISE Status: Chronic (7) Protein-calorie malnutrition, moderate Code(s): E44.0 - MODERATE PROTEIN-CALORIE MALNUTRITION Status: Chronic Comment: encouraged po intake, appreciate dietary recs (8) Suprapubic catheter Code(s): Z93.59 - OTHER CYSTOSTOMY STATUS Status: Chronic Comment: for urinary retention. chornic, changed monthly, changed after admit (9) Candidal intertrigo Code(s): B37.2 - CANDIDIASIS OF SKIN AND NAIL Status: Inactive Comment: keep dry, adding in Fluc daily. Need to weepage, but anasarca and chronic drainage will be a problem with alb at 1.7 (10) Metabolic encephalopathy Code(s): G93.41 - METABOLIC ENCEPHALOPATHY Status: Acute Comment: present on admit, resolved, now recurring. UA negative, Labs okay, on morphine for pain , ambiens as needed. Hydrating, labs okay, replacing K+ and Mg++, check CT brain. due to quadriplegia, unable to ellicit new motor weakness - Plan cont current plan of care, plan discussed w/ family, frey catheter, continue antibiotics, PT/OT, respiratory therapy, DVT proph w/lovenox * .
--- NOTE | 2017-06-16 15:51 | CT ---
BRAIN CT WITHOUT IV CONTRAST: History: 56-year-old female with altered mental status and quadriplegia. Comparison: 06-09-17 FINDINGS: No focal mass or midline shift. No intra or extraaxial hemorrhage. Sinuses and mastoids are clear of acute process. Minimal motion artifact. IMPRESSION: No mass or bleed or other acute process. Stable from prior 06-09-17. POS: [facility]
[2017-06-16] MEDS: Fluconazole In NaCl,Iso-Osm 200 MG in Premix Bag 1 BAG IVPB SCH (17:05)
[2017-06-16] MEDS: Dextrose 5 % And 0.9 % NaCl 1,000 ML IV SCH (22:04)
[2017-06-16] MEDS: Chlorhexidine Gluconate 15 ML UDCUP SSP SCH (22:04)
[2017-06-17] MEDS: Cefepime 2 GM, Syringe 2.5 ML in Sterile Water 10 ML SLOW IVP SCH ×2 (06:02→17:45)
[2017-06-17] MEDS: Dextrose 5 % And 0.9 % NaCl 1,000 ML IV SCH ×2 (06:29→14:59)
[2017-06-17 09:21] LABS: AST (SGOT) 37 U/L (5-34); Anion Gap 9 mmol/L (10-20); Bilirubin, Total 0.3 mg/dL (0.2-1.2); Calc. Creatinine Clearance 129 mL/min (70-130); Calcium 7.5 mg/dL (7.8-10.44); Carbon Dioxide 18 mmol/L (22-29); Chloride 113 mmol/L (98-107); Estimated GFR-MDRD Greater than 90; Magnesium 1.9 mg/dL (1.6-2.6); Phosphorus 2.4 mg/dL (2.3-4.7); Potassium 3.4 mmol/L (3.5-5.1); Protein, Total 4.3 g/dL (6.0-8.3); Sodium 137 mmol/L (136-145)
[2017-06-17 09:25] LABS: #Eosinphils 0.1 thou/uL (0.0-0.7); #Lymphocytes 0.5 thou/uL (1.20-3.40); #Monocytes 0.3 thou/uL (0.11-0.59); #Neutrophils 7.5 thou/uL (1.40-6.50); %Basophils 0.2 % (0.0-1.0); %Eosinophils 0.7 % (0.0-10.0); %Lymphocytes 6.2 % (21.0-51.0); %Monocytes 3.4 % (0.0-10.0); %Neutrophils 89.4 % (42.0-75.0); Hemoglobin 10.4 g/dL (12.0-16.0); Mean Corpuscular Hemoglobin 27.5 pg (27.0-31.0); Mean Corpuscular Volume 88.6 fl (81.0-99.0); Mean Platelet Volume 12.2 fL (7.4-10.4); Platelet Count 39 thou/uL (130-400); RBC Distribution Width 14.3 % (11.5-14.5); Red Blood Cell (RBC) Count 3.79 mill/uL (4.20-5.40); White Blood Cell (WBC) Count 8.4 thou/uL (4.8-10.8)
[2017-06-17 09:29] LABS: Band 37 % (5-11); Burr Cells MODERATE= 6-15 cells (100X) (0-1/hpf); Lymphocytes 8 % (21-51); MDiff Complete? YES; Metamyelocyte 1 % (0-0); Monocytes 3 % (0-10); Neutrophil 50 % (42-75); PLT Morphology Comment Appears Decreased; Reactive Lymphocytes 1 % (0-10)
[2017-06-17] MEDS: Enoxaparin Sodium 30 MG/0.3 ML SYRINGE SC SCH (09:33)
[2017-06-17] MEDS: Ferrous Sulfate 325 MG TAB PO SCH (09:33)
[2017-06-17] MEDS: Saccharomyces boulardii 250 MG CAP PO SCH (09:34)
[2017-06-17] MEDS: Multivitamin W/ Minerals 1 TAB PO SCH (09:34)
[2017-06-17] MEDS: Famotidine/PF 20 mg/2ml Vial SLOW IVP SCH (09:35)
[2017-06-17] MEDS: Chlorhexidine Gluconate 15 ML UDCUP SSP SCH ×3 (09:35→21:30)
[2017-06-17] MEDS: Furosemide 20 MG/2 ML VIAL SLOW IVP SCH (09:35)
[2017-06-17 09:52] LABS: Albumin 1.6 g/dL (3.5-5.0); Globulin 2.7 g/dL (2.4-3.5)
[2017-06-17 09:57] LABS: Alkaline Phosphatase 72 U/L (40-150)
[2017-06-17 10:00] LABS: ALT (SGPT) 12 U/L (8-55)
[2017-06-17 10:38] LABS: Glucose 130 mg/dL (70-105)
[2017-06-17 10:42] LABS: BUN (Urea Nitrogen) 22 mg/dL (9.8-20.1)
--- NOTE | 2017-06-17 14:01 | PDOC.PN ---
- Subjective Encounter Start Date: 06/17/17 Encounter Start Time: 13:35 Subjective: f/u for sepsis and UTI with chronic suprapubic catheter with pseudomonas -: noted on admit. Tx with Cefepime but continues with AMS, lethargy -: and unsafe for po intake. - Objective Resuscitation Status: Resuscitation Status FULL:Full Resuscitation MAR Reviewed: Yes Vital Signs & Weight: Vital Signs (12 hours) Temp Pulse Resp BP Pulse Ox 06/17/17 12:15 97.6 F 112 H 18 135/83 100 06/17/17 07:30 96.6 F L 89 18 127/74 99 06/17/17 04:00 97.3 F L 115 H 18 130/77 100 Weight Admit Weight 145 lb 14.4 oz Weight 157 lb I&O: 06/16/17 06/17/17 06/18/17 06:59 06:59 06:59 Intake Total 3874.4 3637 Output Total 4325 4250 Balance -450.6 -613 Result Diagrams: 06/17/17 08:44 06/17/17 08:44 Additional Labs: Accuchecks 06/17/17 06/17/17 06/16/17 12:25 05:55 19:45 POC Glucose 150 H 138 H 69 L 06/16/17 17:24 POC Glucose 68 L Microbiology 06/11/17 22:15 Urine frey catheter Urine Culture - Final NO GROWTH AT 36 HOURS 06/10/17 Unknown Stool C. difficile GDH Antigen & Toxins - Final 06/09/17 17:39 Venous blood - Right Hand Blood Culture - Final NO GROWTH IN 5 DAYS 06/09/17 17:26 Urine Suprapubic catheter Urine Culture - Final Pseudomonas aeruginosa 06/09/17 17:13 Nasal swab Influenza Types A,B Direct EIA - Final 06/09/17 17:03 Venous blood - Left Arm Blood Culture - Final NO GROWTH IN 5 DAYS Laboratory Tests 06/11/17 06/12/17 06/13/17 04:32 19:30 05:38 Band Neuts % (Manual) 21 H 10 13 H Potassium 06/15/17 06/15/17 06/15/17 04:33 04:33 11:20 Band Neuts % (Manual) 23 H Potassium 3.2 L 3.2 L 02/04/18 02/05/18 06:08 08:44 Band Neuts % (Manual) 37 H Potassium 2.9 L* Radiology Reviewed by me: Yes (CT brain - no acute process) EKG Reviewed by me: Yes (Tele - SR in 90's) Phys Exam - Physical Examination lethargic, does not track with eyes, drooling HEENT: oral pharynx no lesions Neck: no JVD, supple diminished in bases Cardiovascular: RRR + colostomy with green stool, SPT in place Gastrointestinal: soft, non-tender, no distention, positive bowel sounds + edema globally L thigh with erythema, no open lesions noted Musculoskeletal: pulses present Skin: cap refill <2 seconds Dx/Plan (1) Catheter-associated urinary tract infection Code(s): T83.511A - I/I REACT D/T INDWELLING URETHRAL CATHETER, INIT; N39.0 - URINARY TRACT INFECTION, SITE NOT SPECIFIED Status: Acute Qualifiers: Indwelling urinary catheter type: indwelling urethral catheter Encounter type: initial encounter Qualified Code(s): T83.511A - Infection and inflammatory reaction due to indwelling urethral catheter, initial encounter; N39.0 - Urinary tract infection, site not specified; N39.0 - Urinary tract infection, site not specified Comment: present on admission. pseudomonas resistant to quinolones. CCM with cefepime. SP tube changed PM 06/11 repeat UCx neg at 36 hours. rx another 24 hours. no po options (2) Metabolic encephalopathy Code(s): G93.41 - METABOLIC ENCEPHALOPATHY Status: Acute Comment: ? etiology , likely underlying metabolic process and occult infection, repeat Blood/Ucx, repeat PCXR (3) Candidal intertrigo Code(s): B37.2 - CANDIDIASIS OF SKIN AND NAIL Status: Inactive Comment: keep dry, adding in Fluc daily. Need to weepage, but anasarca and chronic drainage will be a problem with alb at 1.7 (4) Acidosis, metabolic Code(s): E87.2 - ACIDOSIS Status: Chronic Comment: Persistent, likely multifactorial (5) Hypokalemia Code(s): E87.6 - HYPOKALEMIA Status: Acute Comment: KCL replacement (6) Sacral decubitus ulcer, stage IV Code(s): L89.154 - PRESSURE ULCER OF SACRAL REGION, STAGE 4 Status: Acute Comment: No improvement with wound vac, changing approach as per wound care recs (7) Sepsis Code(s): A41.9 - SEPSIS, UNSPECIFIED ORGANISM Status: Acute Qualifiers: Sepsis type: Pseudomonas Qualified Code(s): A41.52 - Sepsis due to Pseudomonas Comment: Suspected, recurrent, add Vancomycin as LLE a suspected element, panculture repeated, PCXR pending (8) FTT (failure to thrive) in adult Status: Chronic (9) Physical deconditioning Code(s): R53.81 - OTHER MALAISE Status: Chronic (10) Protein-calorie malnutrition, moderate Code(s): E44.0 - MODERATE PROTEIN-CALORIE MALNUTRITION Status: Chronic Comment: currently unsafe for po intake, serial ST evaluation - Plan continue antibiotics, PT/OT, social services specialist, speech therapy, respiratory therapy Continue aggressive supportive care -: Panculture today -: Add Vancomycin 1gm IV q12h -: Continue Cefepime 2gm IV q12h -: Consult ID for recommendations * AM lab: BMP, CBC * Consult Palliative care service
[2017-06-17] MEDS ORDERED: HYDROcodone/Acetaminophen 5/325 mg Tablet PO PRN (14:11)
[2017-06-17] MEDS: Vancomycin HCl 1 GM in Premix Bag 1 BAG IVPB SCH (14:59)
--- NOTE | 2017-06-17 15:30 | RAD ---
AP VIEW OF THE CHEST: INDICATION: History of dysphagia and aspiration. COMPARISON: Prior exam dated 05/30/17. FINDINGS: There are bilateral pleural effusions and bibasilar atelectasis. The left chest wall port is unchang ed. Cardiomegaly persists. Pulmonary vascular congestion is similar. No pneumothorax is evident. IMPRESSION: Persistent bilateral pleural effusions and bibasilar atelectasis. POS: [facility]
[2017-06-17] MEDS: Fluconazole In NaCl,Iso-Osm 200 MG in Premix Bag 1 BAG IVPB SCH (18:50)
[2017-06-18] MEDS: Vancomycin HCl 1 GM in Premix Bag 1 BAG IVPB SCH ×2 (03:11→14:54)
[2017-06-18] MEDS: Dextrose 5 % And 0.9 % NaCl 1,000 ML IV SCH ×3 (03:11→23:32)
[2017-06-18] MEDS: Cefepime 2 GM, Syringe 2.5 ML in Sterile Water 10 ML SLOW IVP SCH ×2 (05:27→16:52)
[2017-06-18] MEDS ORDERED: Morphine 5 MG/ML SYRINGE SLOW IVP SCH (06:00)
[2017-06-18 06:20] LABS: Anion Gap 10 mmol/L (10-20); BUN (Urea Nitrogen) 21 mg/dL (9.8-20.1); Calc. Creatinine Clearance 128 mL/min (70-130); Calcium 7.3 mg/dL (7.8-10.44); Carbon Dioxide 19 mmol/L (22-29); Chloride 113 mmol/L (98-107); Estimated GFR-MDRD Greater than 90; Glucose 125 mg/dL (70-105); Magnesium 1.6 mg/dL (1.6-2.6); Phosphorus 2.1 mg/dL (2.3-4.7); Sodium 139 mmol/L (136-145)
[2017-06-18 06:22] LABS: Potassium 2.8 mmol/L (3.5-5.1)
[2017-06-18] MEDS: Potassium Chloride 20 MEQ TAB PO SCH ×5 (09:40→23:30)
[2017-06-18] MEDS: Chlorhexidine Gluconate 15 ML UDCUP SSP SCH ×3 (09:40→20:30)
[2017-06-18] MEDS: Ferrous Sulfate 325 MG TAB PO SCH (09:40)
[2017-06-18] MEDS: Saccharomyces boulardii 250 MG CAP PO SCH (09:41)
[2017-06-18] MEDS: Multivitamin W/ Minerals 1 TAB PO SCH (09:41)
[2017-06-18] MEDS: Furosemide 20 MG/2 ML VIAL SLOW IVP SCH (11:19)
--- NOTE | 2017-06-18 11:21 | PDOC.PN ---
- Subjective Encounter Start Date: 06/18/17 Encounter Start Time: 11:19 Ms. Gao was seen today in follow-up. She is unresponsive. She is moaning. She has been unable to take any nutrition by mouth. - Objective Resuscitation Status: Resuscitation Status FULL:Full Resuscitation MAR Reviewed: Yes Vital Signs & Weight: Vital Signs (12 hours) Temp Pulse Resp BP Pulse Ox 06/18/17 07:50 95.8 F L 94 16 127/80 100 06/18/17 03:58 97.3 F L 96 16 132/80 98 Weight Admit Weight 145 lb 14.4 oz Weight 158 lb 6.4 oz I&O: 06/17/17 06/18/17 06/19/17 06:59 06:59 06:59 Intake Total 3637 2330 Output Total 4250 2100 Balance -613 230 Result Diagrams: 06/17/17 08:44 06/18/17 05:35 Additional Labs: Accuchecks 06/18/17 06/17/17 06/17/17 05:50 16:39 12:25 POC Glucose 129 H 146 H 150 H Phys Exam - Physical Examination HEENT: PERRLA + rales bilaterally Cardiovascular: RRR, no significant murmur Gastrointestinal: soft, non-tender, positive bowel sounds Musculoskeletal: edema present + generalized edema Dx/Plan (1) Catheter-associated urinary tract infection Code(s): T83.511A - I/I REACT D/T INDWELLING URETHRAL CATHETER, INIT; N39.0 - URINARY TRACT INFECTION, SITE NOT SPECIFIED Status: Acute Qualifiers: Indwelling urinary catheter type: indwelling urethral catheter Encounter type: initial encounter Qualified Code(s): T83.511A - Infection and inflammatory reaction due to indwelling urethral catheter, initial encounter; N39.0 - Urinary tract infection, site not specified; N39.0 - Urinary tract infection, site not specified Comment: present on admission. pseudomonas resistant to quinolones. CCM with cefepime. SP tube changed PM 06/11 repeat UCx neg at 36 hours. rx another 24 hours. no po options (2) Metabolic encephalopathy Code(s): G93.41 - METABOLIC ENCEPHALOPATHY Status: Acute Comment: ? 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 watch, hold meds (6) Lupus (systemic lupus erythematosus) Code(s): M32.9 - SYSTEMIC LUPUS ERYTHEMATOSUS, UNSPECIFIED Status: Chronic Qualifiers: Systemic lupus erythematosus type: unspecified Systemic lupus erythematosus organ involvement: unspecified Qualified Code(s): M32.9 - Systemic lupus erythematosus, unspecified Comment: not on treatment per (7) Protein-calorie malnutrition, moderate Code(s): E44.0 - MODERATE PROTEIN-CALORIE MALNUTRITION Status: Chronic Comment: currently unsafe for po intake, serial ST evaluation - Plan * Metabolic Encephalopathy- this is likely from UTI with Sepsis- Urine culture was positive for Pseudomonas * Will continue Cefepime * HTN- blood pressure is stable . * Thrombocytopenia- suspect is due to sepsis * Malnutrition- is complicating her recovery, and unfortunately she is unable to take anything by mouth now * I have called her Mr. Tavo Abarca to update him on her deteriorating condition. At first he seemed in a bit of denial about how gravely ill she is. But as the conversation progressed he admitted that he has been in contact with [facility], and has been considering taking her home with him on Home hospice. He has given me permission to ask our Case Management to work with [facility] from our end as well.
[2017-06-18] MEDS: Potassium Chloride 20 MEQ in Premix Bag 1 BAG IVPB SCH ×2 (11:30→17:58)
[2017-06-18 11:45] VITALS: BMI 27.1
--- NOTE | 2017-06-18 13:19 | CON ---
DATE OF CONSULTATION: 06/18/2017 REASON FOR CONSULTATION: Change in mental status and fever. HISTORY OF PRESENT ILLNESS: A 56-year-old patient, whom I have seen a few times in this hospital with a history of systemic lupus erythematosus with progressive renal insufficiency secondary to nephritis; quadriparesis, which has been felt to be secondary to neuropathy after normal MRI of the spine; recurrent DVT, on Coumadin; and a chronic sacral decubitus ulcerations related to poor offloading and mobility impairment. Patient has had a colostomy placed for diversion to help manage the decubitus ulcers and has had a suprapubic catheter placed as well. She has been admitted for complications related above the last few times, because of the decompensated decubitus ulcers. I saw her in 05/12/2017 when she presented with bandemia, abnormal urinalysis, sacral decubitus ulcer, and hypotension. We decided to complete the treatment for the decubitus ulcer with adding MRSA therapy, which had not been included in the previous regimen and she was treated with antimicrobials for the urinary tract isolate, although our conclusion during this visit was that this isolate could represent pure colonization rather than an invasive infectious process. The patient was readmitted at the end of May again, because of altered mental status and fever, temperature detected was 102.9. She had the pressure ulcerations, which were about the same as previously noted. The exam showed quadriparesis or quadriplegia, suprapubic catheter. She failed a swallowing evaluation. Had malnutrition in the physical examination, as noted by temporal wasting and wasting syndrome in the appendicular structures. Initial laboratory data demonstrated a white cell count of 4.2 with 39% neutrophils and 43% bands. INR was 1.6. Creatinine is 0.64, AST 94, ALT 42, alkaline phosphatase 92, albumin was 2.0. Urinalysis with 4+ bacteria, greater than 50 wbcs. Microbiology data revealed a P. aeruginosa from urine culture, which was resistant only to ciprofloxacin, but sensitive to all other antimicrobials tested. C. difficile antigen and toxin and colostomy stool was negative. Four sets of blood cultures, no growth. Patient has remained with altered mental status. Her temperature has remained normal. Imaging studies have included a brain CT scan with no mass or acute process. This was a brain CT without contrast. She had a chest x-ray, which showed a persistent bilateral pleural effusions and bibasilar atelectases. 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 Oral contrast was not given for this study and IV contrast was administered. Currently, Ms. Gao has her eyes open, but she does not interact with examiner, does not establish eye contact. Again she failed a swallowing study and she has been placed n.p.o. at this point in time. PAST MEDICAL HISTORY: Includes systemic lupus erythematosus with central nervous system involvement including quadriplegia, part of the quadriplegia was ascribed to neuropathy, but physical exam changes are more consistent with myelopathy. History of nephritis, neurogenic bladder with suprapubic catheter, stage 4 presacral ulcer refractory involving the presacral area as well as bilateral sacroiliac and ischial areas, prior debridement and protracted treatment with antimicrobial therapy, deep vein thrombosis and previously on Coumadin. FAMILY HISTORY: Coronary artery disease. ALLERGIES: None. SOCIAL HISTORY: Disabled, lives at home with director. Never smoker. CURRENT MEDICATIONS: Include Tylenol, [place], Maalox, cefepime, dextrose, ferrous sulfate, fluconazole, furosemide, hydralazine, loperamide, loratadine, ondansetron, sodium chloride, vancomycin. PHYSICAL EXAMINATION: VITAL SIGNS: The patient has been afebrile through the hospital stay. Blood pressure 120/80, pulse 94, respirations 16, O2 sat 100%. SKIN EXAMINATION: Remarkable for the suprapubic catheter and colostomy and both exit sites appear normal. She has those ulcers in the back area, one of them in the left-sided sacroiliac area. Appears to have a small area of exposed bone at the bottom. There is a rim of necrosis in the lateral aspect around 8 to 11 o'clock. The remainder ulcers are not as deep without bone exposure, and they have fresh red tissue at the base. The one in the presacral area has quite a bit of undermining though. She has a peripheral IV access. HEENT: The ocular movements are conjugate, but she does not establish eye contact. Does not interact with examiner. She has numerous missing teeth. Moist mucosa. LUNGS: With symmetric air entry with few crackles in the right base. HEART: S1, S2, regular rate. ABDOMEN: Not distended. No ascites. No bladder distention. EXTREMITIES: Quadriparesis as noted before. LABORATORY AND X-RAY FINDINGS: Repeat urinalysis with 7-10 wbcs. White cell count 8.4, hemoglobin 10.4, platelets 39,000. ASSESSMENT: 1. Systemic lupus erythematosus with severe neurological involvement, quadriparesis. 2. Refractory decubitus ulcers with poor offloading in the home setting. 3. Swallowing dysfunction. 4. Change in mental status. DISCUSSION: Differential diagnosis includes lupus cerebritis versus toxic metabolic encephalopathy versus an opportunistic infection with COUNSELING PROGRAM LEADER involvement. The patient is on broad-spectrum coverage, and at this point, I would strongly consider the possibility of lupus cerebritis and the possibility of cerebrovascular accident. Consider an MRI of the head with contrast. If aggressive management is desired, may require CSF evaluation as well to rule out viral encephalitis and fungal meningitis. If the family wants a less aggressive management course, then consultation with palliative care and even considering hospice care at this point in time. Check complement double- stranded DNA titers. The last time they were checked in August, they were low and she had high levels of auto antibodies. The decubitus ulcers actually do not have a lot of inflammatory changes and I do not think that they are the culprit here. Urinary tract could be part of the problem or the findings could reflect just colonization with pyuria associated with suprapubic catheter. Finally, aspiration pneumonia would be a concern in her case. MARIAH
[2017-06-18] MEDS: Fluconazole In NaCl,Iso-Osm 200 MG in Premix Bag 1 BAG IVPB SCH (16:56)
[2017-06-19] MEDS: Vancomycin HCl 1 GM in Premix Bag 1 BAG IVPB SCH (03:03)
[2017-06-19] MEDS: Cefepime 2 GM, Syringe 2.5 ML in Sterile Water 10 ML SLOW IVP SCH (03:03)
[2017-06-19] MEDS: Dextrose 5 % And 0.9 % NaCl 1,000 ML IV SCH ×2 (03:03→14:57)
[2017-06-19 04:57] LABS: Anion Gap 6 mmol/L (10-20); BUN (Urea Nitrogen) 17 mg/dL (9.8-20.1); Calc. Creatinine Clearance 111 mL/min (70-130); Calcium 6.3 mg/dL (7.8-10.44); Carbon Dioxide 19 mmol/L (22-29); Chloride 119 mmol/L (98-107); Estimated GFR-MDRD Greater than 90; Magnesium 1.1 mg/dL (1.6-2.6); Phosphorus 1.6 mg/dL (2.3-4.7); Potassium 2.6 mmol/L (3.5-5.1); Sodium 141 mmol/L (136-145)
[2017-06-19] MEDS: Potassium Chloride 40 MEQ in Premix Bag 1 BAG IVPB SCH ×2 (05:33→14:54)
[2017-06-19 08:06] VITALS: TEMP 96
[2017-06-19] MEDS: Chlorhexidine Gluconate 15 ML UDCUP SSP SCH ×2 (09:00→16:24)
[2017-06-19 09:21] LABS: #Lymphocytes 0.8 thou/uL (1.20-3.40); #Monocytes 0.3 thou/uL (0.11-0.59); #Neutrophils 5.3 thou/uL (1.40-6.50); %Basophils 0.1 % (0.0-1.0); %Eosinophils 0.2 % (0.0-10.0); %Lymphocytes 12.7 % (21.0-51.0); %Monocytes 3.9 % (0.0-10.0); Hemoglobin 7.9 g/dL (12.0-16.0); Mean Corpuscular HGB CONC 31.8 g/dL (32.0-36.0); Mean Corpuscular Hemoglobin 28.5 pg (27.0-31.0); Mean Corpuscular Volume 89.6 fl (81.0-99.0); Mean Platelet Volume 12.7 fL (7.4-10.4); Platelet Count 33 thou/uL (130-400); RBC Distribution Width 14.5 % (11.5-14.5); Red Blood Cell (RBC) Count 2.78 mill/uL (4.20-5.40); White Blood Cell (WBC) Count 6.3 thou/uL (4.8-10.8)
[2017-06-19] MEDS: Multivitamin W/ Minerals 1 TAB PO SCH (09:31)
[2017-06-19] MEDS: Ferrous Sulfate 325 MG TAB PO SCH (09:31)
[2017-06-19] MEDS: Saccharomyces boulardii 250 MG CAP PO SCH (09:32)
[2017-06-19] MEDS: Furosemide 20 MG/2 ML VIAL SLOW IVP SCH (09:32)
[2017-06-19] MEDS ORDERED: Magnesium 2 GM/NS 0.9% 100 ML 2 GM in Premix Bag 1 BAG IVPB SCH (10:30)
--- NOTE | 2017-06-19 10:40 | PDOC.PN ---
- Subjective Encounter Start Date: 06/19/17 Encounter Start Time: 10:37 Ms. Gao was seen today in follow-up. She is not much improved overnight. She is staring but does not interact. - Objective Resuscitation Status: Resuscitation Status FULL:Full Resuscitation MAR Reviewed: Yes Vital Signs & Weight: Vital Signs (12 hours) Temp Pulse Resp BP Pulse Ox 06/19/17 08:00 96.0 F L 105 H 20 131/86 95 06/19/17 04:00 97.0 F L 97 22 H 130/87 97 Weight Admit Weight 145 lb 14.4 oz Weight 158 lb 6.4 oz I&O: 06/18/17 06/19/17 06/20/17 06:59 06:59 06:59 Intake Total 2330 2330 Output Total 2100 1350 Balance 230 980 Result Diagrams: 06/19/17 03:30 06/19/17 03:30 Additional Labs: Accuchecks 06/19/17 06/18/17 06/18/17 05:39 21:15 16:56 POC Glucose 125 H 122 H 115 H 06/18/17 12:06 POC Glucose 123 H Phys Exam - Physical Examination HEENT: PERRLA Respiratory: no wheezing, no rales, no rhonchi, clear to auscultation bilateral Cardiovascular: RRR, no significant murmur Gastrointestinal: soft, non-tender, positive bowel sounds Dx/Plan (1) Catheter-associated urinary tract infection Code(s): T83.511A - I/I REACT D/T INDWELLING URETHRAL CATHETER, INIT; N39.0 - URINARY TRACT INFECTION, SITE NOT SPECIFIED Status: Acute Qualifiers: Indwelling urinary catheter type: indwelling urethral catheter Encounter type: initial encounter Qualified Code(s): T83.511A - Infection and inflammatory reaction due to indwelling urethral catheter, initial encounter; N39.0 - Urinary tract infection, site not specified; N39.0 - Urinary tract infection, site not specified Comment: present on admission. pseudomonas resistant to quinolones. CCM with cefepime. SP tube changed PM 06/11 repeat UCx neg at 36 hours. rx another 24 hours. no po options (2) Metabolic encephalopathy Code(s): G93.41 - METABOLIC ENCEPHALOPATHY Status: Acute Comment: ? 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 watch, hold meds (6) Lupus (systemic lupus erythematosus) Code(s): M32.9 - SYSTEMIC LUPUS ERYTHEMATOSUS, UNSPECIFIED Status: Chronic Qualifiers: Systemic lupus erythematosus type: unspecified Systemic lupus erythematosus organ involvement: unspecified Qualified Code(s): M32.9 - Systemic lupus erythematosus, unspecified Comment: not on treatment per (7) Protein-calorie malnutrition, moderate Code(s): E44.0 - MODERATE PROTEIN-CALORIE MALNUTRITION Status: Chronic Comment: currently unsafe for po intake, serial ST evaluation - Plan * Metabolic encephalopathy - possibly due to sepsis- will continue Zosyn * Recommendations from ID noted, It is my understanding that the patient's is planning to take the patient home with hospice. She clinically does not appear to be able to withstand further aggressive treatments such as Lumbar punctures ect. I believe regardless of any treatment going forward her prognosis is very poor. Therefore Comfort care is a reasonable approach. * Wll replace Potassium and Magnesium, and then hopefully she can be discharged home with Hospice soon..
[2017-06-19] MEDS: Morphine 5 MG/ML SYRINGE SLOW IVP PRN ×2 (11:30→16:20)
[2017-06-19 12:23] LABS: Anion Gap 10 mmol/L (10-20); BUN (Urea Nitrogen) 19 mg/dL (9.8-20.1); Calc. Creatinine Clearance 138 mL/min (70-130); Calcium 7.4 mg/dL (7.8-10.44); Carbon Dioxide 18 mmol/L (22-29); Chloride 115 mmol/L (98-107); Estimated GFR-MDRD Greater than 90; Glucose 104 mg/dL (70-105); Potassium 3.7 mmol/L (3.5-5.1); Sodium 139 mmol/L (136-145)
[2017-06-19 14:28] LABS: Vancomycin, Trough 38.8 ug/mL
[2017-06-19 14:59] VITALS: BP 121/91
[2017-06-19] MEDS ORDERED: Vancomycin HCl 1 GM in Premix Bag 1 BAG IVPB SCH (15:00)
--- NOTE | 2017-06-19 20:52 | DIS ---
DATE OF ADMISSION: 06/09/2017. DATE OF DISCHARGE: 06/19/2017. PRIMARY CARE PHYSICIAN: Lidia Hansen MD DISCHARGE DISPOSITION: Home with home hospice. DISCHARGE DIAGNOSES: 1. Altered mental status probably secondary to metabolic encephalopathy. 2. Urinary tract infection with sepsis. 3. History of systemic lupus. 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 5. Quadriplegia. 6. Neurogenic bladder with chronic suprapubic catheter. 7. Hypertension. 8. Deep venous thrombosis, status post inferior vena cava filter. 9. Severe protein-calorie malnutrition. 10. Stage IV decubitus ulcer. 11. Chronic bedbound status. DISCHARGE MEDICATIONS: Include famotidine 20 mg twice daily; and Cubicin, which she should have comp leted as of 06/09/2017. PROCEDURES DONE DURING ADMISSION: The patient had a CT scan of the abdomen and pelvis and showed barrett ateral pleural effusions with adjacent consolidation due to atelectasis or pneumonia. 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 There is no evidence of bowel obstruction. There were small a jc of ascites, which was nonspecific. The patient also had a CT scan of the brain showing no acu te intracranial process. CODE STATUS: FULL CODE. ALLERGIES: No known drug allergies. HOSPITAL COURSE: Ms. Gao is a pleasant 56-year-old female that has multiple medical problems. She has had multiple admissions over the last year to year and a half. She was recently discharged on d aptomycin due to an invasive urinary tract infection. She also suffers from severe protein-calorie m alnutrition as well as a chronic decubitus ulcer. She was admitted on this occasion due to an altera tion in her mental status, which was felt to be due to an encephalopathy secondary to another invasiv e urinary tract infection as no other source was found. Despite IV antibiotics, the patient's condit ion continued to deteriorate during her hospital stay. There was also some possibility that she coul d have a flare of her lupus as her white blood cell count began to drop, as well as her platelet coun t while she was admitted; however, the patient was extremely obtunded. Her serum albumin level is da ngerously low and had been so at the time of admission and her albumin level got as low as 1.6. This coupled with her multiple medical comorbidities and recently during her hospital stay, she began hav ing difficulty swallowing and not being able to take in nutrition orally. It was felt that her likel ihood of demonstrating any significant improvement over the course of the next few weeks to months wa s very poor. I discussed this with the patient's on the phone and the decision was made to p lace the patient on hospice at home, and in fact prior to me discussing this with the patient's derek marques, he had already made arrangements prior to our discussion. Unbeknownst to the hospital team, he w as making arrangements for hospice and had been in contact with [facility]. Therefore, on 06/19/2017, the patient was discharged home with home hospice; however, the patient's did wish her to be a FULL CODE while she is on hospice.
== END 2017-06-19 16:45 | disposition hospice, home (50) | DRG 698 ==
LOC: ERS 16:03 → ERHOLD 20:33 → IMCU/EMU 06-10 01:09 → 2NO 06-12 14:51
PROVIDERS: ADMIT Family Medicine; ATTEND Family Medicine
PROC: 0T2BX0Z Change Drainage Device in Bladder, External Approach (ICD-10-PCS; principal; 2017-06-12)
DX: T83.510A Infection and inflammatory reaction due to cystostomy catheter, initial encounter (principal); R65.20 Severe sepsis without septic shock; J96.01 Acute respiratory failure with hypoxia; A41.52 Sepsis due to Pseudomonas; E43 Unspecified severe protein-calorie malnutrition; G82.50 Quadriplegia, unspecified; G61.0 Guillain-Barre syndrome; G93.41 Metabolic encephalopathy; J90 Pleural effusion, not elsewhere classified; L89.154 Pressure ulcer of sacral region, stage 4; R18.8 Other ascites; I24.8 Other forms of acute ischemic heart disease; N39.0 Urinary tract infection, site not specified; J98.11 Atelectasis; E87.2 Acidosis; Z51.5 Encounter for palliative care; E83.42 Hypomagnesemia; Y84.6 Urinary catheterization as the cause of abnormal reaction of the patient, or of later complication, without mention of misadventure at the time of the procedure; E87.6 Hypokalemia; I48.0 Paroxysmal atrial fibrillation; N31.9 Neuromuscular dysfunction of bladder, unspecified; F41.9 Anxiety disorder, unspecified; F32.9 Major depressive disorder, single episode, unspecified; M32.9 Systemic lupus erythematosus, unspecified; Z74.01 Bed confinement status; Z86.718 Personal history of other venous thrombosis and embolism; Z16.23 Resistance to quinolones and fluoroquinolones; B37.2 Candidiasis of skin and nail; R62.7 Adult failure to thrive; D63.8 Anemia in other chronic diseases classified elsewhere; Z68.25 Body mass index [BMI] 25.0-25.9, adult
CPT/HCPCS: 36415; 36416; 70450; 71045; 74177; 80048; 80053; 80202; 81003; 81015; 82140; 82553; 83605; 83735; 83880; 84100; 84443; 84484; 85025; 85610; 87040; 87077; 87086; 87186; 87324; 87449; 87804; 93005; 96365; 96366; 96367; 96368; 96375; J2270; A4216; G8978-GP-CN; G8979-GP-CN; G8980-GP-CN; G8996-GN-CN; G8997-GN-CM; G8997-GN-CN; J0692; J1450; J1642; J1650; J1940; J1956; J2405; J2543; J3370; J3475; J3480; J7042; J7050; S0028